=== PATIENT | male | born 1930 | race Caucasian/White ===

== ENCOUNTER 2016-10-28 15:08 | Inpatient (IN) | payer OTHER ==
[~2016-10-28] VITALS: Ht 177.8 cm; Wt 100.8 kg
[~2016-10-28 15:08] MED LIST: ACET-1256 PO; ADVIN25/60 INH; ALBUAER2 INH; ALLO100T PO; ASCO500T16 PO; ATRINSX NEB; CHOL2000 PO; ESCI10TA17 PO; LCTX PO; LSX40 PO; METO50TA16 PO; OMEP40CA41 PO; OXGN; POTA20TA13 PO; RANI300T PO; SPRIN INH; TAMS0.4C38 PO; VNCS125 IV
[2016-10-28] MEDS ORDERED: ALUMINUM/MAGNESIUM SUSP 30 ML UDC PO STA (15:16)
[2016-10-28] MEDS ORDERED: ONDANSETRON INJ 2 MG/ML 2 ML VIAL IV STA (15:16)
[2016-10-28] MEDS ORDERED: SODIUM CHLORIDE 0.9% 1000ML 1,000 ML IV STA (15:16)
--- NOTE | 2016-10-28 15:19 | EMERGENCY ROOM VISIT NOTE ---
History Report prepared by Racquelibe: Lara Matthews Under the Supervision of: Dr. Harry Price D.O. First contact with patient: 15:10 Stated Complaint: UPPER ABD PAIN/DIAPHORETIC History of Present Illness The patient is a 86 year old male who presents to the Emergency Room with complaints of persistent abdominal pain that started prior to arrival. He was brought to the ED via EMS. EMS reports the patient was very diaphoretic upon their arrival. The patient rates his pain as an 8/10 in severity and complains that the pain is located in the middle of his abdomen. He denies any lower abdominal pain. He admits to a history of peptic ulcer disease but denies any previous cardiac history. He states "I have never experienced anything like it before". The patient was given 4 Aspirin and 4 mg of Morphine in the field, which provided some relief. He denies any recent shortness of breath. He admits to some recent headaches, but states he does not have one here in the ED. He denies any recent medication changes or leg pain or swelling. He denies any recent melena or hematochezia. He denies any recent ETOH use. The patient admits he has undergone an appendectomy, but believes he still has his gallbladder. 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 A total of 10 systems reviewed and were otherwise negative. 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 (7) Gout (8) HLD (hyperlipidemia) (9) HTN (hypertension) (10) Pulmonary emboli Surgical Problems: (1) H/O colonoscopy (2) H/O hernia repair (3) H/O total knee replacement (4) S/P appendectomy (5) S/P IVC filter (6) S/P tonsillectomy Family History Noncontributory due to advanced age Social History Smoking Status: Never Smoker Alcohol Use: occasionally Drug Use: none Marital Status: Housing Status: lives alone Occupation Status: retired Current/Historical Medications Scheduled Allopurinol (Zyloprim), 200 MG PO DAILY Ascorbic Acid (Ascorbic Acid), 500 MG PO DAILY Aspirin (Aspir-81), 1 TAB PO DAILY Cholecalciferol (Vitamin D3), 4,000 UNITS PO DAILY Fluticasone Furoate-Vilanterol (Breo Ellipta), 1 PUFF INH DAILY Furosemide (Furosemide), 40 MG PO DAILY Lactobacillus Acidophilus (Lactinex), 1 TAB PO TID Levofloxacin (Levaquin), 500 MG PO DAILY Metoprolol Tartrate (Lopressor) (Lopressor), 75 MG PO BID Omeprazole (Prilosec), 40 MG PO DAILY Oxygen (Oxygen), 5 LITER NA HS Pantoprazole (Protonix), 40 MG PO DAILY Potassium Chloride Microencaps (Potassium Chloride Er), 20 MEQ PO BID Ranitidine Hcl (Zantac), 300 MG PO HS Senna (Senokot), 1 TAB PO QAM Tamsulosin Hcl (Flomax), 1 CAP PO DAILY Tiotropium Enterprise (Spiriva Handihaler), 18 MCG INH DAILY Scheduled PRN Albuterol Sulfate (Proair Respiclick), 2 PUFFS INH PRN PRN for Shortness of Breath Ipratropium Enterprise (Atrovent 0.02% Soln), 1 VIAL NEB Q4 PRN for SOB/Wheezing Allergies Coded Allergies: Penicillins (Verified Allergy, Severe, ANAPHYLAXIS, 10/28/16) Codeine (Verified Allergy, Unknown, UNKNOWN, 10/28/16) Propoxyphene (Verified Allergy, Unknown, SHORTNESS OF BREATH, 10/28/16) Physical Exam Vital Signs Date Time Temp Pulse Resp B/P Pulse Ox O2 Delivery O2 Flow Rate FiO2 10/28/16 19:09 86 10/28/16 18:29 80 18 124/90 94 Room Air 10/28/16 17:28 86 18 133/83 97 Room Air 10/28/16 16:57 98 20 133/85 96 Room Air 10/28/16 16:09 85 22 115/78 98 Room Air 10/28/16 15:43 36.8 87 24 106/71 95 Room Air 10/28/16 15:22 94 Physical Exam GENERAL: Patient is awake, alert, somewhat anxious appearing but overall comfortable. EYES: The conjunctivae are clear. The pupils are round and reactive. EARS, NOSE, MOUTH AND THROAT: The nose is without any evidence of any deformity. Mucous membranes are moist tongue is midline NECK: The neck is nontender and supple. RESPIRATORY: Normal respiratory effort is noted there is no evidence of wheezing rhonchi or rales CARDIOVASCULAR: Regular rate and rhythm noted there no murmurs rubs or gallops normal S1 normal S2 GASTROINTESTINAL: The abdomen is soft. Bowel sounds are present in all quadrants. Significant epigastric tenderness to palpation, RUQ tenderness to palpation, no guarding or rigidity noted. MUSCULOSKELETAL/EXTREMITIES: There is no evidence of gross deformity full range of motion is noted in the hips and shoulders SKIN: Pedal edema bilaterally. There is no obvious evidence of any rash. There are no petechiae, pallor or cyanosis noted. NEUROLOGIC: Patient is awake alert and oriented x3 Medical Decision & Procedures ER Provider Diagnostic Interpretation: This X-Ray was reviewed and interpreted by myself and the radiologist. CHEST ONE VIEW PORTABLE IMPRESSION: No acute findings. No change in appearance of the chest. Electronically signed by: Roland Albarran M.D. 10/28/2016 3:[address] scans were reviewed and interpreted by the radiologist and reviewed by myself. HEAD CT NONCONTRAST Impression: No acute intracranial abnormality. Atrophy and microvascular ischemic changes. This remains unchanged. Electronically signed by: Mathew Cordova M.D. 10/28/2016 4:[address] SCAN OF THE ABDOMEN AND PELVIS WITHOUT IV CONTRAST IMPRESSION: 1. Significantly suboptimal examination without oral and IV contrast. Th examination is also degraded by motion artifact. 2. No acute infectious or inflammatory findings are seen in the abdomen or pelvis. 3. The gallbladder is distended but otherwise normal in appearance. Correlation with clinical findings and serum bilirubin levels will be required. 4. Moderate colonic diverticulosis without CT evidence of acute diverticulitis. 5. Cardiomegaly. 6. Prostatomegaly. 7. Additional changes as above. Electronically signed by: Kunal Olguin M.D. 10/28/2016 5:02 PM This Ultrasound was reviewed and interpreted by the radiologist and reviewed by myself. ABDOMINAL ULTRASOUND, RIGHT UPPER QUADRANT IMPRESSION: 1. Distended gallbladder, unchanged. There are few small gallstones. No gallbladder wall thickening. 2. Normal caliber common bile duct given the patient's age. 3. Hepatic steatosis. Electronically signed by: Mathew Cordova M.D. 10/28/2016 6:00 PM Laboratory Results 10/28/16 14:40 Red Blood Count 3.80, Mean Corpuscular Volume 88.7, Mean Corpuscular Hemoglobin 30.3, Mean Corpuscular Hemoglobin Concent 34.1, Mean Platelet Volume 10.3, Neutrophils (%) (Auto) 70.6, Lymphocytes (%) (Auto) 16.8, Monocytes (%) (Auto) 7.2, Eosinophils (%) (Auto) 5.0, Basophils (%) (Auto) 0.2, Neutrophils # (Auto) 4.11, Lymphocytes # (Auto) 0.98, Monocytes # (Auto) 0.42, Eosinophils # (Auto) 0.29, Basophils # (Auto) 0.01 10/28/16 14:40 Test 10/28/16 14:40 White Blood Count 5.82 K/uL (4.8-10.8) Red Blood Count 3.80 M/uL (4.7-6.1) Hemoglobin 11.5 g/dL (14.0-18.0) Hematocrit 33.7 % (42-52) Mean Corpuscular Volume 88.7 fL (80-100) Mean Corpuscular Hemoglobin 30.3 pg (25-34) Mean Corpuscular Hemoglobin Concent 34.1 g/dl (32-36) Platelet Count 176 K/uL (130-400) Mean Platelet Volume 10.3 fL (7.4-10.4) Neutrophils (%) (Auto) 70.6 % Lymphocytes (%) (Auto) 16.8 % Monocytes (%) (Auto) 7.2 % Eosinophils (%) (Auto) 5.0 % Basophils (%) (Auto) 0.2 % Neutrophils # (Auto) 4.11 K/uL (1.4-6.5) Lymphocytes # (Auto) 0.98 K/uL (1.2-3.4) Monocytes # (Auto) 0.42 K/uL (0.11-0.59) Eosinophils # (Auto) 0.29 K/uL (0-0.5) Basophils # (Auto) 0.01 K/uL (0-0.2) RDW Standard Deviation 56.5 fL (36.4-46.3) RDW Coefficient of Variation 17.4 % (11.5-14.5) Immature Granulocyte % (Auto) 0.2 % Immature Granulocyte # (Auto) 0.01 K/uL (0.00-0.02) Prothrombin Time 10.2 SECONDS (9.0-12.0) Prothromb Time International Ratio 1.0 (0.9-1.1) Activated Partial Thromboplast Time 24.6 SECONDS (21.0-31.0) Partial Thromboplastin Ratio 0.9 Anion Gap 10.0 mmol/L (3-11) Estimated GFR () 36.2 Estimated GFR (Non- 31.2 BUN/Creatinine Ratio 17.4 (10-20) Calcium Level 8.8 mg/dl (8.5-10.1) Total Bilirubin 0.4 mg/dl (0.2-1) Direct Bilirubin 0.1 mg/dl (0-0.2) Aspartate Amino Transf (AST/SGOT) 24 U/L (15-37) Alanine Aminotransferase (ALT/SGPT) 21 U/L (12-78) Alkaline Phosphatase 102 U/L (45-117) Total Creatine Kinase 36 U/L (39-308) Total Protein 6.9 gm/dl (6.4-8.2) Albumin 3.0 gm/dl (3.4-5.0) Lipase 116 U/L (73-393) Laboratory results per my review. Medications Administered Medications (Trade) Dose Ordered Sig/Bladimir Route Start Time Stop Time Status Last Admin Dose Admin Ondansetron HCl (Zofran Inj) 4 mg NOW STAT IV 10/28/16 15:16 10/28/16 15:18 DC 10/28/16 16:06 4 MG Al Hydroxide/Mg Hydroxide 30 ml 30 ml NOW STAT PO 10/28/16 15:16 10/28/16 15:18 DC 10/28/16 16:06 30 ML Sodium Chloride 1,000 ml @ 200 mls/hr Q5H STAT IV 10/28/16 15:16 17 20:15 DC 10/28/16 16:06 200 MLS/HR Sodium Chloride (Nss 1000ml) 1,000 ml @ 75 mls/hr [id number] IV 3/16/17 20:16 10/29/16 09:35 10/28/16 22:09 75 MLS/HR ECG Indication: abdominal pain Rate (beats per minute): 86 Rhythm: sinus rhythm Findings: PVC, RBBB (RBBB suggested), other (Ectopic atrial rhythm noted) Change: no significant change (No significant change from June 11, 2016) Change: 2nd EKG performed on 10/28/2016: Normal sinus rhythm, rate 81, RBBB, PAC's noted , no significant change from earlier tracing. ED Course 151: The patient was evaluated in room A12. A complete history and physical examination were performed. 151: NSS 1000 ml @ 200 mls/hr IV, Maalox Susp 30 ml PO, Zofran 4 mg IV. 1724: I reevaluated the patient. He is resting comfortably. His daughter is at the bedside and I discussed his results so far with her. 1911: I discussed the patients case with Inés Martinez PA-C, [facility] Hospitalist. The patient will be further evaluated. Medical Decision Prior records/ancillary studies reviewed. Triage Nursing notes reviewed. The patient's history was concerning for abdominal pain. Differential diagnosis: Etiologies such as appendicitis, diverticulitis, PUD, biliary pathology, UTI, pancreatitis, obstruction, mesenteric ischemia, aortic pathology, infections, inflammatory bowel disease, renal colic, as well as others were entertained. The patient is an 86-year-old male who presented to the emergency department for an evaluation of abdominal pain. The patient had an episode of abdominal pain which was epigastric in nature. It was associated with diaphoresis. It was unclear if the patient was having a cardiac event so the ambulance was called. The patient arrived in the emergency department after receiving aspirin and a fluid bolus for hypotension. I received a medical command call about this patient. The patient had reproducible epigastric tenderness. He also had right upper quadrant tenderness to palpation. He was treated with IV fluids and IV antiemetics. He was treated with pain medication prior to arrival. I discussed the patient's laboratory and radiographic studies with him and his daughter. At this time I'm very concerned about the patient's presentation. He appears to have recently been discharged from a intermediate after a long period of time. It is possible that the patient does not have a good social support system. I discussed his case with the on-call [facility] hospitalist group. They've agreed to evaluate the patient in the emergency apartment for further management and disposition. Consults Time Called: [id number] Consulting Physician: Inés Martinez PA-C, [facility] Hospitalist Returned Call: 1911 I discussed the patients case with Inés Martinez PA-C, [facility] Hospitalist. The patient will be further evaluated. Impression Primary Impression: Acute kidney injury Additional Impressions: Dehydration Hypotension Epigastric abdominal pain RUQ abdominal pain Scribe Attestation The scribe's documentation has been prepared under my direction and personally reviewed by me in its entirety. I confirm that the note above accurately reflects all work, treatment, procedures, and medical decision making performed by me. Departure Information Dispostion Being Evaluated By Hospitalist Referrals Claudy Jung D.O. (PCP) Problem Qualifiers Additional Impressions: Hypotension Hypotension type: unspecified hypotension type Qualified Codes: I95.9 - Hypotension, unspecified
[2016-10-28 15:24] LABS: HEMATOCRIT 33.7 % (42-52); MEAN CELL VOLUME 88.7 fL (80-100); MEAN CORPUSCULAR HEMOGLOBIN 30.3 pg (25-34); MEAN CORPUSCULAR HGB CONC 34.1 g/dl (32-36); MEAN PLATELET VOLUME 10.3 fL (7.4-10.4); PLATELET COUNT 176 K/uL (130-400); WHITE BLOOD COUNT 5.82 K/uL (4.8-10.8)
[2016-10-28] MEDS ORDERED: MoRPHine SULFATE 4 MG/ML 1 ML CARP\\VIAL IV PRN (15:30)
[2016-10-28 15:34] LABS: PARTIAL THROMBOPLASTIN RATIO 0.9; PROTHROMBIN TIME (PATIENT) 10.2 SECONDS (9.0-12.0)
--- NOTE | 2016-10-28 15:34 | DIAGNOSTIC IMAGING REPORT ---
CHEST ONE VIEW PORTABLE CLINICAL HISTORY: Abdominal pain. COMPARISON STUDY: Chest radiograph January 23, 2016. FINDINGS: Elevation of the left hemidiaphragm is unchanged. Left basilar opacity is suggestive of atelectasis. Mild cardiomegaly is unchanged. There is no evidence of pulmonary edema. There is no pneumothorax. No consolidation is identified. IMPRESSION: No acute findings. No change in appearance of the chest. Electronically signed by: Roland Albarran M.D. 10/28/2016 3:33 PM Dictated Date/Time: 10/28/2016 3:32 PM
[2016-10-28 15:38] LABS: ALT/SGPT 21 U/L (12-78); BLOOD UREA NITROGEN 33 mg/dl (7-18); BUN/CREATININE RATIO 17.4 (10-20); CALCIUM 8.8 mg/dl (8.5-10.1); CARBON DIOXIDE 26 mmol/L (21-32); CHLORIDE 105 mmol/L (98-107); GLUCOSE 156 mg/dl (70-99); POTASSIUM 4.3 mmol/L (3.5-5.1); SODIUM 141 mmol/L (136-145)
[2016-10-28 15:43] LABS: ALKALINE PHOSPHATASE 102 U/L (45-117); AST/SGOT 24 U/L (15-37); CKMB/CK RATIO 4.4 (0-3.0)
[2016-10-28 15:58] LABS: BASO % 0.2 %; BASO ABS # 0.01 K/uL (0-0.2); COMPLETE YES; IG% 0.2 %; LYMPH % 16.8 %; LYMPH ABS # 0.98 K/uL (1.2-3.4); MONO % 7.2 %; NEUT % 70.6 %
--- NOTE | 2016-10-28 16:58 | DIAGNOSTIC IMAGING REPORT ---
HEAD CT NONCONTRAST CT DOSE: 537.48 mGy.cm HISTORY: confusion TECHNIQUE: Multiaxial CT images of the head were performed without the use of intravenous contrast. Automated exposure control was utilized for this study. Comparison: Head CT 10/05/2012. Findings: The paranasal sinuses and mastoid air cells are clear. The calvarium and skull base are intact. There is no mass, hematoma, midline shift, acute infarct. White matter hypodensity is nonspecific but suggestive of microvascular ischemic change. The ventricles and sulci demonstrate mild age-related involutional changes. Impression: No acute intracranial abnormality. Atrophy and microvascular ischemic changes. This remains unchanged. Electronically signed by: Mathew Cordova M.D. 10/28/2016 4:57 PM Dictated Date/Time: 10/28/2016 4:55 PM
--- NOTE | 2016-10-28 17:03 | DIAGNOSTIC IMAGING REPORT ---
CT SCAN OF THE ABDOMEN AND PELVIS WITHOUT IV CONTRAST CLINICAL HISTORY: Upper abdominal pain. COMPARISON STUDY: Abdominal CT dated to. TECHNIQUE: CT scan of the abdomen and pelvis is performed from the lung bases to the proximal femora. Images are reviewed in the axial, sagittal, and coronal planes. IV contrast was not administered for this examination as per the referring clinician. Note that the examination was performed in significantly suboptimal fashion without oral and IV contrast. The examination is also degraded by motion artifact. Automated dose control exposure was utilized. CT DOSE: 907.88 mGy.cm FINDINGS: Lung bases: The heart is enlarged and without pericardial effusion. There is elevation of left hemidiaphragm with chronic scarring at the left lung base. No airspace consolidation is seen typical for pneumonia and there is no pleural effusion. A tiny hiatal hernia is identified. Liver: The unenhanced liver is normal in size, contour, and attenuation. There is no intrahepatic biliary ductal dilatation. Gallbladder: The gallbladder is distended but otherwise grossly unremarkable. Spleen: Normal in size and attenuation. Pancreas: The unenhanced pancreas is moderately atrophic and grossly unremarkable. Adrenal glands: Unremarkable. Kidneys: The unenhanced kidneys demonstrate cortical atrophy and are without hydronephrosis. There are no renal calculi identified. There is no evidence of contour deforming renal mass lesion. Abdominal vasculature: There is moderate atherosclerotic calcification and mild ectasia of the abdominal aorta. An infrarenal IVC filter is in place. Bowel: The small bowel and colon are normal in course and caliber. There is moderate colonic diverticulosis without CT evidence of acute diverticulitis. Moderate fecal retention is observed. The appendix is not visualized and reported surgically absent. Peritoneum: There is no intraperitoneal free air or abdominal ascites. Lymphadenopathy: None. Pelvic viscera: The prostate gland is enlarged and heterogeneous, measuring 6.2 cm in transverse diameter. The bladder is normal as imaged. Skeletal structures: The skeletal structures are osteopenic. There is moderate lumbosacral spondylosis. No lytic or blastic lesions are seen. There are healed bilateral rib fractures. IMPRESSION: 1. Significantly suboptimal examination without oral and IV contrast. Th examination is also degraded by motion artifact. 2. No acute infectious or inflammatory findings are seen in the abdomen or pelvis. 3. The gallbladder is distended but otherwise normal in appearance. Correlation with clinical findings and serum bilirubin levels will be required. 4. Moderate colonic diverticulosis without CT evidence of acute diverticulitis. 5. Cardiomegaly. 6. Prostatomegaly. 7. Additional changes as above. Electronically signed by: Kunal Olguin M.D. 10/28/2016 5:02 PM Dictated Date/Time: 10/28/2016 4:56 PM
--- NOTE | 2016-10-28 18:01 | DIAGNOSTIC IMAGING REPORT ---
ABDOMINAL ULTRASOUND, RIGHT UPPER QUADRANT HISTORY: Upper abdominal pain.. COMPARISON: Abdomen and pelvis CT 10/28/2016. FINDINGS: Pancreas: The pancreatic head and tail are obscured by overlying bowel gas. The remaining portions of the pancreas are within normal limits. Liver: The liver is echogenic consistent with fatty change. Gallbladder: The gallbladder remains distended. No gallbladder wall thickening. There are few small stones within the gallbladder. CBD: 8 mm in diameter. This is considered normal given the patient's age. Right kidney: No hydronephrosis. IMPRESSION: 1. Distended gallbladder, unchanged. There are few small gallstones. No gallbladder wall thickening. 2. Normal caliber common bile duct given the patient's age. 3. Hepatic steatosis. Electronically signed by: Mathew Cordova M.D. 10/28/2016 6:00 PM Dictated Date/Time: 10/28/2016 5:59 PM
[2016-10-28] MEDS ORDERED: SENN-61 PO (19:05)
[2016-10-28] MEDS ORDERED: FLUT1INH INH (19:05)
[2016-10-28] MEDS ORDERED: METO50TA7 PO (19:05)
[2016-10-28] MEDS ORDERED: RIFA300C34 PO (19:05)
[2016-10-28] MEDS ORDERED: PANT40TA PO (19:05)
[2016-10-28] MEDS ORDERED: ASPI-232 PO (19:05)
[2016-10-28] MEDS ORDERED: ALBU18002 INH (19:08)
[2016-10-28] MEDS ORDERED: SODIUM CHLORIDE 0.9% 1000ML 1,000 ML IV SCH (20:16)
[2016-10-28] MEDS ORDERED: LEVO-459 PO (20:25)
[2016-10-28] MEDS ORDERED: NON-FORMULARY MEDICATION (Albuterol Sulfate (Proair Respiclick) 2 PUFFS) INH PRN (20:30)
[2016-10-28] MEDS ORDERED: IPRATROPIUM BROMIDE NEB SOLN 0.02% 2.5 ML VIAL INH PRN (20:30)
[2016-10-28] MEDS ORDERED: ACETAMINOPHEN 325 MG TAB PO PRN (20:30)
[2016-10-28] MEDS ORDERED: MoRPHine SULFATE 2 MG/ML CARP IV PRN (20:30)
[2016-10-28] MEDS ORDERED: NITROGLYCERIN 0.4 MG SL PER TAB CHARGE SL PRN (20:30)
[2016-10-28] MEDS ORDERED: ONDANSETRON INJ 2 MG/ML 2 ML VIAL IV PRN (20:30)
[2016-10-28] MEDS ORDERED: ALBUTEROL HFA INHALER 8.5 GM INH PRN (20:45)
[2016-10-28] MEDS ORDERED: OXYGEN SCH (21:00)
--- NOTE | 2016-10-28 21:03 | History and Physical ---
History & Physical Date & Time of Service: Oct 28, 2016 at 20:29 Chief Complaint: Upper Abd Pain/Diaphoretic Primary Care Physician: Claudy Jung D.O. History of Present Illness Source: patient This is an 86 y/o male with PMHx of CKD stage 3, moderate COPD, h/o PE s/p IVC filter, HTN, Dyslipidemia and other problems as outlined below who presents to the ED c/o abdominal pain that began prior to arrival. Pt reports that he was feeling well until 1330 when he developed acute onset abdominal pain that he describes as 8/10 azael-umbilical "squeezing" pain that did not radiate anywhere. Sxs were assoc with "ashen appearance" per daughter and diaphoresis. Last normal BM was this morning. Pt has never had similar sxs in the past. Pt has had a complicated past couple months. Briefly, pt was admitted to [facility] in May 2016 for a large R thigh hematoma and bacteremia. He was discharged to rehab facility with PICC line in place for 6 weeks of IV Vanco therapy. Pt ended up being admitted to [facility] at the end of August for a septic L knee. He was treated with IV linezolid (last dose 09/27/16) and discharged to a rehab facility. Patient just returned home 4 days ago. He currently lives at home alone with frequent PT and nursing care. Per daughter, pt had been doing really well since he has been home and they were pleased with his progress. Pt currently denies fever/chills, chest pain, SOB, loss of appetite, N/V, bowel or bladder issues, LE edema ,calf pain, lightheadedness/dizziness. In the ED, vitals are stable. Pt is afebrile with no leukocytosis. creat 1.9. Trop negative and EKG no acute ischemic change. CT abd/pelvis + distended gallbladder. Gallbladder US + gallbladder distention but no wall thickening and CBD in normal. Pt received IVF and morphine in the ED. He currently denies any abdominal pain. Pt will be admitted for further evaluation and treatment. Past Medical/Surgical History Medical Problems: (1) Anxiety Status: Chronic (2) BPH (benign prostatic hyperplasia) Status: Chronic (3) COPD (chronic obstructive pulmonary disease) Status: Chronic (4) Current use of correction anticoagulation Status: Chronic (5) Gout Status: Chronic (6) HLD (hyperlipidemia) Status: Chronic (7) HTN (hypertension) Status: Chronic (8) Pulmonary emboli Permanent Comment: After flying to [place], s/p IVC filter Status: Chronic Surgical Problems: (1) H/O colonoscopy Permanent Comment: Multiple diverticulum Status: Chronic (2) H/O hernia repair Status: Chronic (3) H/O total knee replacement Status: Chronic (4) S/P appendectomy Status: Chronic (5) S/P IVC filter Status: Chronic (6) S/P tonsillectomy Status: Chronic Family History Noncontributory due to advanced age Social History Smoking Status: Never Smoker Alcohol Use: none Drug Use: none Marital Status: Housing status: lives alone Occupational Status: retired Immunizations History of Influenza Vaccine: Yes History of Tetanus Vaccine?: Unknown History of Pneumococcal: Yes History of Hepatitis B Vaccine: Unknown Multi-Drug Resistant Organisms History of MDRO: Yes Type of MDRO: MRSA Allergies Coded Allergies: Penicillins (Verified Allergy, Severe, ANAPHYLAXIS, 10/28/16) Codeine (Verified Allergy, Unknown, UNKNOWN, 10/28/16) Propoxyphene (Verified Allergy, Unknown, SHORTNESS OF BREATH, 10/28/16) Home Medications Scheduled Allopurinol (Zyloprim), 200 MG PO DAILY Ascorbic Acid (Ascorbic Acid), 500 MG PO DAILY Aspirin (Aspir-81), 1 TAB PO DAILY Cholecalciferol (Vitamin D3), 4,000 UNITS PO DAILY Fluticasone Furoate-Vilanterol (Breo Ellipta), 1 PUFF INH DAILY Furosemide (Furosemide), 40 MG PO DAILY Lactobacillus Acidophilus (Lactinex), 1 TAB PO TID Levofloxacin (Levaquin), 500 MG PO DAILY Metoprolol Tartrate (Lopressor) (Lopressor), 75 MG PO BID Omeprazole (Prilosec), 40 MG PO DAILY Oxygen (Oxygen), 5 LITER NA HS Pantoprazole (Protonix), 40 MG PO DAILY Potassium Chloride Microencaps (Potassium Chloride Er), 20 MEQ PO BID Ranitidine Hcl (Zantac), 300 MG PO HS Senna (Senokot), 1 TAB PO QAM Tamsulosin Hcl (Flomax), 1 CAP PO DAILY Tiotropium [place] (Spiriva Handihaler), 18 MCG INH DAILY Scheduled PRN Albuterol Sulfate (Proair Respiclick), 2 PUFFS INH PRN PRN for Shortness of Breath Ipratropium [place] (Atrovent 0.02% Soln), 1 VIAL NEB Q4 PRN for SOB/Wheezing Review of Systems Constitutional: + sweats, No chills, No fatigue, No fever, No weakness Eyes: No worsening of vision ENT: No hearing loss Respiratory: No cough, No shortness of breath Cardiovascular: + edema (chronic), No chest pain, No claudication Abdomen: + pain, No GI bleeding, No constipation, No diarrhea, No nausea, No vomiting Musculoskeletal: No calf pain, No swelling Genitourinary - Male: No dysuria Neurologic: No weakness Psychiatric: No depression symptoms Endocrine: No fatigue Hematologic / Lymphatic: No abnormal bleeding/bruising Integumentary: No new/changing skin lesions Physical Exam Vital Signs Date Time Temp Pulse Resp B/P Pulse Ox O2 Delivery O2 Flow Rate FiO2 10/28/16 19:09 86 10/28/16 18:29 80 18 124/90 94 Room Air 10/28/16 17:28 86 18 133/83 97 Room Air 10/28/16 16:57 98 20 133/85 96 Room Air 10/28/16 16:09 85 22 115/78 98 Room Air 10/28/16 15:43 36.8 87 24 106/71 95 Room Air 10/28/16 15:22 94 General Appearance: WD/WN, no apparent distress, + obese, + pertinent finding ( Pt is laying in bed with daughter at bedside ) Head: normocephalic, atraumatic Eyes: normal inspection ENT: hearing grossly normal Neck: supple Respiratory/Chest: chest non-tender, lungs clear, normal breath sounds, no respiratory distress Cardiovascular: regular rate, rhythm, no murmur Abdomen/GI: normal bowel sounds, soft, + tenderness (azael-uumbilical tenderness with deep palpation ) Back: normal inspection Extremities/Musculoskelatal: normal inspection, no calf tenderness, + swelling (1+ pitting edema bilat; wearing judit hose) Neurologic/Psych: alert, normal mood/affect, oriented x 3 Skin: normal color, warm/dry Diagnostics Laboratory Results Results Past 24 Hours Test 10/28/16 14:40 Range/Units White Blood Count 5.82 4.8-10.8 K/uL Red Blood Count 3.80 4.7-6.1 M/uL Hemoglobin 11.5 14.0-18.0 g/dL Hematocrit 33.7 42-52 % Mean Corpuscular Volume 88.7 80-100 fL Mean Corpuscular Hemoglobin 30.3 25-34 pg Mean Corpuscular Hemoglobin Concent 34.1 32-36 g/dl Platelet Count 176 130-400 K/uL Mean Platelet Volume 10.3 7.4-10.4 fL Neutrophils (%) (Auto) 70.6 % Lymphocytes (%) (Auto) 16.8 % Monocytes (%) (Auto) 7.2 % Eosinophils (%) (Auto) 5.0 % Basophils (%) (Auto) 0.2 % Neutrophils # (Auto) 4.11 1.4-6.5 K/uL Lymphocytes # (Auto) 0.98 1.2-3.4 K/uL Monocytes # (Auto) 0.42 0.11-0.59 K/uL Eosinophils # (Auto) 0.29 0-0.5 K/uL Basophils # (Auto) 0.01 0-0.2 K/uL RDW Standard Deviation 56.5 36.4-46.3 fL RDW Coefficient of Variation 17.4 11.5-14.5 % Immature Granulocyte % (Auto) 0.2 % Immature Granulocyte # (Auto) 0.01 0.00-0.02 K/uL Prothrombin Time 10.2 9.0-12.0 SECONDS Prothromb Time International Ratio 1.0 0.9-1.1 Activated Partial Thromboplast Time 24.6 21.0-31.0 SECONDS Partial Thromboplastin Ratio 0.9 Sodium Level 141 136-145 mmol/L Potassium Level 4.3 3.5-5.1 mmol/L Chloride Level 105 98-107 mmol/L Carbon Dioxide Level 26 21-32 mmol/L Anion Gap 10.0 3-11 mmol/L Blood Urea Nitrogen 33 7-18 mg/dl Creatinine 1.90 0.60-1.40 mg/dl Estimated GFR () 36.2 Estimated GFR (Non- 31.2 BUN/Creatinine Ratio 17.4 10-20 Random Glucose 156 70-99 mg/dl Calcium Level 8.8 8.5-10.1 mg/dl Total Bilirubin 0.4 0.2-1 mg/dl Direct Bilirubin 0.1 0-0.2 mg/dl Aspartate Amino Transf (AST/SGOT) 24 15-37 U/L Alanine Aminotransferase (ALT/SGPT) 21 12-78 U/L Alkaline Phosphatase 102 45-117 U/L Total Creatine Kinase 36 39-308 U/L Creatine Kinase MB 1.6 0.5-3.6 ng/ml Creatine Kinase MB Ratio 4.4 0-3.0 Troponin I < 0.015 0-0.045 ng/ml Total Protein 6.9 6.4-8.2 gm/dl Albumin 3.0 3.4-5.0 gm/dl Lipase 116 73-393 U/L Diagnostic Radiology GALLBLADDER US IMPRESSION: 1. Distended gallbladder, unchanged. There are few small gallstones. No gallbladder wall thickening. 2. Normal caliber common bile duct given the patient's age. 3. Hepatic steatosis. CT ABD/PELVIS IMPRESSION: 1. Significantly suboptimal examination without oral and IV contrast. Th examination is also degraded by motion artifact. 2. No acute infectious or inflammatory findings are seen in the abdomen or pelvis. 3. The gallbladder is distended but otherwise normal in appearance. Correlation with clinical findings and serum bilirubin levels will be required. 4. Moderate colonic diverticulosis without CT evidence of acute diverticulitis. 5. Cardiomegaly. 6. Prostatomegaly. 7. Additional changes as above. HEAD CT IMPRESSION: No acute intracranial abnormality. Atrophy and microvascular ischemic changes. This remains unchanged. CXR IMPRESSION: No acute findings. No change in appearance of the chest. EKG EKG: sinus rhythm at 86 bpm with occ PVCs and RBBB; no change when compared to EKG from 06/11/16 Impression Assessment and Plan ABDOMINAL PAIN; UNCLEAR ETIOLOGY -pt presented with acute onset severe abd pain assoc with diaphoresis -admit to telemetry -pt is afebrile with no leukocytosis -CT abd/pelvis + gallbladder distention but otherwise normal -Gallbladder US + gallbladder distention. No wall thickening. Normal CBD. -Trop is negative and EKG shows no acute ischemic change from previous; will trend enzymes to r/o cardiac etiology -cont gentle IVF and pain medicine PRN -pt currently denies abdominal pain -monitor LIAM (baseline CKD III) -creatinine is 1.9 (baseline 1.3-1.5) -hold furosemide -start gentle IVF -monitor renal function and avoid nephrotoxic agents when able RECENT HISTORY OF SEPTIC L KNEE -admitted to [facility] 09/14-09/19 with septic L knee. Tx with IV linezolid -currently completing 6 month course of Levaquin per [place] [facility] -PT/OT HISTORY OF PE -s/p IVC filter -Coumadin was discontinued in June after he developed a large R thigh hematoma -cont ASA NOCTURNAL HYPOXEMIA -cont supplemental oxygen HS per home setting MODERATE COPD -not in acute exacerbation -cont home inhalers HYPERTENSION -BP is stable -cont metoprolol -holding furosemide due to LIAM -monitor GERD -cont PPI BPH -cont Flomax DYSLIPIDEMIA -diet-controlled DVT PROPHYLAXIS -subq heparin CODE STATUS -FULL CODE per my discussion with the patient upon admission DISPO -Discharge eval and PT/OT consult placed. -Patient seen in collaboration with Dr. Pablo. Please see her addendum. -Of note: patient will be followed by Dr. Hirsch starting tomorrow AM. I have seen, examined and discussed this patient with Insé Martinez and I agree with the above note. Patient presented with acute onset supra-umbilical/epigastric abdominal pain. No associated n/v/d. Notes 2 BM's today that were formed and denies any rectal bleeding. Vitals stable. PE: General- awake; alert; NAD Eyes- EOMI; no scleral icterus Neck- no stridor; trachea midline Lungs- CTA bilaterally; no wheezes/crackles Heart- RRR; no m/r/g Abdomen- soft; NTND; nBS; no guarding Back- no abnormalities Extremities- no c/c/e; no deformity Neuro- no focal deficits Skin- no appreciable skin breakdown or rash Labs, imaging and EKG reviewed. Abdominal pain: Unclear etiology. Has resolved. CT a/p and RUQ u/s with gallbladder distention but otherwise normal. LFT's normal. Vitals stable. Lipase normal. Advance diet as tolerated. Although atypical, will complete ACS r /o. LIAM: Hold furosemide and gentle hydration overnight with IVF's. Agree with remainder of plan as outlined above. VTE Prophylaxis VTE Risk Assessment Done? Y/N: Yes Risk Level: Moderate
[2016-10-28 21:34] LABS: URINE APPEARANCE CLEAR (CLEAR); URINE BILIRUBIN NEG (NEG); URINE COLOR DK YELLOW; URINE NITRITE NEG (NEG); URINE SPECIFIC GRAVITY 1.012 (1.000-1.030); UROBILINOGEN NEG (NEG)
[2016-10-28 21:37] LABS: MANUAL MICROSCOPIC REQUIRED? NO; REVIEW REQ? NO
[2016-10-28 21:47] VITALS: BP 151/87; PULSE 102; TEMP 36.3; O2SAT 97; Ht 177.8 cm; Wt 100.8 kg
[2016-10-28] MEDS: RANITIDINE HCL 150 MG TAB PO SCH (22:03)
[2016-10-28] MEDS: METOPROLOL TARTRATE 25 MG TAB PO SCH (22:03)
[2016-10-28] MEDS: LACTOBACILLUS ACIDOPHILUS (FLORANEX) TAB PO SCH (22:04)
[2016-10-28] MEDS: POTASSIUM CHLORIDE 20 MEQ TABCR PO SCH (22:05)
[2016-10-28] MEDS: HEPARIN SOD 5000 UNIT/0.5 ML CARP SQ SCH (22:08)
[2016-10-28 23:10] VITALS: BP 110/69; PULSE 86; TEMP 36.7; O2SAT 97
[2016-10-29] VITALS (9 sets, daily range): BP systolic 112–164; BP diastolic 63–93; PULSE 76–106; TEMP 36–36.9; O2SAT 94–98
[2016-10-29 03:03] LABS: HEMATOCRIT 30.6 % (42-52); MEAN CELL VOLUME 86.4 fL (80-100); MEAN CORPUSCULAR HEMOGLOBIN 29.4 pg (25-34); MEAN PLATELET VOLUME 9.3 fL (7.4-10.4); PLATELET COUNT 180 K/uL (130-400); RED BLOOD COUNT 3.54 M/uL (4.7-6.1); WHITE BLOOD COUNT 5.59 K/uL (4.8-10.8)
[2016-10-29 03:24] LABS: ALT/SGPT 30 U/L (12-78); AST/SGOT 26 U/L (15-37); BLOOD UREA NITROGEN 32 mg/dl (7-18); BUN/CREATININE RATIO 18.9 (10-20); CARBON DIOXIDE 28 mmol/L (21-32); CHLORIDE 110 mmol/L (98-107); GLUCOSE 70 mg/dl (70-99); POTASSIUM 4.2 mmol/L (3.5-5.1); SODIUM 144 mmol/L (136-145)
[2016-10-29 03:29] LABS: ALB/GLOB RATIO 0.8 (0.9-2); ALKALINE PHOSPHATASE 86 U/L (45-117)
[2016-10-29] MEDS: HEPARIN SOD 5000 UNIT/0.5 ML CARP SQ SCH ×3 (05:18→22:02)
[2016-10-29] MEDS: TIOTROPIUM BROMIDE 5 PUFF/90 MCG INH INH SCH (08:19)
[2016-10-29] MEDS: POTASSIUM CHLORIDE 20 MEQ TABCR PO SCH ×2 (08:19→21:58)
[2016-10-29] MEDS: CHOLECALCIFEROL 1000 INTER.UNIT TAB PO SCH (08:20)
[2016-10-29] MEDS: PANTOprazole SOD 40 MG TAB PO SCH (08:20)
[2016-10-29] MEDS: ASCORBIC ACID 500 MG TAB PO SCH (08:20)
[2016-10-29] MEDS: LACTOBACILLUS ACIDOPHILUS (FLORANEX) TAB PO SCH ×3 (08:20→21:57)
[2016-10-29] MEDS: SENNA 8.6 MG TAB PO SCH (08:21)
[2016-10-29] MEDS: TAMSULOSIN HCL 0.4 MG CAP PO SCH (08:21)
[2016-10-29] MEDS: ASPIRIN 81 MG ECTAB PO SCH (08:21)
[2016-10-29] MEDS: METOPROLOL TARTRATE 25 MG TAB PO SCH ×2 (08:22→21:59)
[2016-10-29] MEDS: ALLOPURINOL 100 MG TAB PO SCH (08:22)
[2016-10-29] MEDS ORDERED: NON-FORMULARY MEDICATION (Omeprazole (Prilosec) 40 MG) PO SCH (09:00)
[2016-10-29] MEDS: LEVOFLOXACIN 500 MG TAB PO SCH (11:51)
--- NOTE | 2016-10-29 11:51 | Progress Note ---
Subjective Date of Service: Oct 29, 2016. Subjective Pt evaluation today including: conversation w/ patient, physical exam, lab review, review of studies, review of inpatient medication list Saw/examined the patient in room 222 He states that he had epigastric/chest pain yesterday has not had recurrence of this pain since being admitted Denies any change in bowel habits; increased urinary frequency Denies shortness of breath Problem List Medical Problems: (1) Acute kidney injury Status: Acute (2) Anemia Status: Acute (3) Chronic kidney disease Status: Acute (4) COPD exacerbation Status: Acute (5) Hypomagnesemia Status: Acute (6) Hypoxia Status: Acute (7) Leg hematoma Status: Acute (8) Near syncope Status: Acute (9) Pneumonia Status: Acute (10) Shortness of breath Status: Acute (11) Subtherapeutic international normalized ratio (INR) Status: Acute (12) Supratherapeutic INR Status: Acute (13) Weakness Status: Acute Review of Systems Constitutional: No chills, No fever, No weakness Respiratory: No cough, No dyspnea at rest, No dyspnea on exertion, No hemoptysis, No shortness of breath, No sputum, No wheezing Cardiac: + chest pain, + see HPI Abdomen: + pain, + see HPI, No GI bleeding, No constipation, No diarrhea, No nausea, No vomiting Heme: No abnormal bleeding/bruising Medications Current Inpatient Medications Medications (Trade) Dose Ordered Sig/Bladimir Route Start Time Stop Time Status Last Admin Dose Admin Heparin Sodium (Porcine) (Heparin Sq 5000 Unit/0.5ml) 5,000 unit Q8 SQ 10/28/16 22:00 11/27/16 21:59 10/29/16 05:18 5,000 UNIT Acetaminophen (Tylenol Tab) 650 mg Q4H PRN PO 10/28/16 20:30 11/27/16 20:29 Ondansetron HCl (Zofran Inj) 4 mg Q6H PRN IV 10/28/16 20:30 11/27/16 20:29 Nitroglycerin (Nitrostat Tab) 0.4 mg UD PRN SL 10/28/16 20:30 11/27/16 20:29 Allopurinol (Zyloprim Tab) 200 mg DAILY PO 10/29/16 09:00 11/28/16 08:59 10/29/16 08:22 200 MG Ascorbic Acid (Vitamin C Tab) 500 mg DAILY PO 10/29/16 09:00 11/28/16 08:59 10/29/16 08:20 500 MG Aspirin (Ecotrin Tab) 81 mg DAILY PO 10/29/16 09:00 11/28/16 08:59 10/29/16 08:21 81 MG Ipratropium [place] (Atrovent 0.02% 0.5MG/2.5ML Neb) 2.5 mg Q4 PRN INH 10/28/16 20:30 11/27/16 20:29 Lactobacillus Acidophilus (Floranex Tab) 1 tab TID PO 10/28/16 21:00 11/27/16 20:59 10/29/16 08:20 1 TAB Levofloxacin (Levaquin Tab) 500 mg DAILY@1100 PO 10/29/16 11:00 12/10/16 10:59 Metoprolol Tartrate (Lopressor Tab) 75 mg BID PO 10/28/16 21:00 11/27/16 20:59 10/29/16 08:22 75 MG Pantoprazole Sodium (Protonix Tab) 40 mg DAILY PO 10/29/16 09:00 11/28/16 08:59 10/29/16 08:20 40 MG Potassium Chloride (Klor-Con Tab) 20 meq BID PO 10/28/16 21:00 11/27/16 20:59 10/29/16 08:19 20 MEQ Senna (Senokot Tab) 8.6 mg QAM PO 10/29/16 09:00 11/28/16 08:59 10/29/16 08:21 8.6 MG Tamsulosin HCl (Flomax Cap) 0.4 mg DAILY PO 10/29/16 09:00 11/28/16 08:59 10/29/16 08:21 0.4 MG Tiotropium [place] (Spiriva Handihaler Inhaler) 1 puff DAILY INH 10/29/16 09:00 11/28/16 08:59 10/29/16 08:19 1 PUFF Cholecalciferol (Vitamin D Tab) 4,000 inter.unit DAILY PO 10/29/16 09:00 11/28/16 08:59 10/29/16 08:20 4,000 INTER.UNIT Miscellaneous Information (Order Awaiting Action) 1 ea QS N/A 10/29/16 00:00 11/28/16 00:00 Ranitidine HCl (zANTac TAB) 300 mg HS PO 10/28/16 21:00 11/27/16 20:59 10/28/16 22:03 300 MG Morphine Sulfate (MoRPHine SULFATE INJ) 2 mg Q4H PRN IV 10/28/16 20:30 11/11/16 20:29 Albuterol (Proair Hfa) 2 puffs DAILY PRN INH 10/28/16 20:45 11/27/16 20:44 Objective Vital Signs Date Time Temp Pulse Resp B/P Pulse Ox O2 Delivery O2 Flow Rate FiO2 10/29/16 08:00 Room Air 10/29/16 07:56 36.9 83 18 129/83 96 10/29/16 04:00 Room Air 10/29/16 03:20 36.8 82 18 124/75 96 Room Air 10/28/16 23:59 Room Air 10/28/16 23:59 Room Air 10/28/16 23:10 36.7 86 18 110/69 97 Room Air 10/28/16 21:47 36.3 102 18 151/87 97 Room Air 10/28/16 21:23 92 18 138/91 95 10/28/16 19:09 86 10/28/16 18:29 80 18 124/90 94 Room Air 10/28/16 17:28 86 18 133/83 97 Room Air 10/28/16 16:57 98 20 133/85 96 Room Air 10/28/16 16:09 85 22 115/78 98 Room Air 10/28/16 15:43 36.8 87 24 106/71 95 Room Air 10/28/16 15:22 94 Physical Exam General Appearance: no apparent distress, + pertinent finding (This is an 86 year old male, sitting on the bed after eating breakfast; in good spirits) ENT: + pertinent finding (hard of hearing) Respiratory/Chest: lungs clear, normal breath sounds, no respiratory distress, no accessory muscle use Cardiovascular: regular rate, rhythm, no edema, no murmur Abdomen: normal bowel sounds, non tender, soft Extremities: non-tender, normal inspection, no pedal edema Neurologic/Psychiatric: no motor/sensory deficits, alert, normal mood/affect Laboratory Results Last 24 Hours Test 10/28/16 14:40 3/16/17 20:45 10/28/16 20:50 10/28/16 20:53 White Blood Count 5.82 K/uL Red Blood Count 3.80 M/uL Hemoglobin 11.5 g/dL Hematocrit 33.7 % Mean Corpuscular Volume 88.7 fL Mean Corpuscular Hemoglobin 30.3 pg Mean Corpuscular Hemoglobin Concent 34.1 g/dl Platelet Count 176 K/uL Mean Platelet Volume 10.3 fL Neutrophils (%) (Auto) 70.6 % Lymphocytes (%) (Auto) 16.8 % Monocytes (%) (Auto) 7.2 % Eosinophils (%) (Auto) 5.0 % Basophils (%) (Auto) 0.2 % Neutrophils # (Auto) 4.11 K/uL Lymphocytes # (Auto) 0.98 K/uL Monocytes # (Auto) 0.42 K/uL Eosinophils # (Auto) 0.29 K/uL Basophils # (Auto) 0.01 K/uL RDW Standard Deviation 56.5 fL RDW Coefficient of Variation 17.4 % Immature Granulocyte % (Auto) 0.2 % Immature Granulocyte # (Auto) 0.01 K/uL Prothrombin Time 10.2 SECONDS Prothromb Time International Ratio 1.0 Activated Partial Thromboplast Time 24.6 SECONDS Partial Thromboplastin Ratio 0.9 Sodium Level 141 mmol/L Potassium Level 4.3 mmol/L Chloride Level 105 mmol/L Carbon Dioxide Level 26 mmol/L Anion Gap 10.0 mmol/L Blood Urea Nitrogen 33 mg/dl Creatinine 1.90 mg/dl Estimated GFR () 36.2 Estimated GFR (Non- 31.2 BUN/Creatinine Ratio 17.4 Random Glucose 156 mg/dl Calcium Level 8.8 mg/dl Total Bilirubin 0.4 mg/dl Direct Bilirubin 0.1 mg/dl Aspartate Amino Transf (AST/SGOT) 24 U/L Alanine Aminotransferase (ALT/SGPT) 21 U/L Alkaline Phosphatase 102 U/L Total Creatine Kinase 36 U/L Creatine Kinase MB 1.6 ng/ml 1.4 ng/ml Creatine Kinase MB Ratio 4.4 Troponin I < 0.015 ng/ml < 0.015 ng/ml Total Protein 6.9 gm/dl Albumin 3.0 gm/dl Lipase 116 U/L Urine Color DK YELLOW Urine Appearance CLEAR Urine pH 5.0 Urine Specific [place] 1.012 Urine Protein NEG Urine Glucose (UA) NEG Urine Ketones NEG Urine Occult Blood 1+ Urine Nitrite NEG Urine Bilirubin NEG Urine Urobilinogen NEG Urine Leukocyte Esterase TRACE Urine WBC (Auto) 1-5 /hpf Urine RBC (Auto) 5-10 /hpf Urine Hyaline Casts (Auto) 1-5 /lpf Urine Epithelial Cells (Auto) 10-20 /lpf Urine Bacteria (Auto) NEG Test 10/29/16 02:35 10/29/16 02:45 White Blood Count 5.59 K/uL Red Blood Count 3.54 M/uL Hemoglobin 10.4 g/dL Hematocrit 30.6 % Mean Corpuscular Volume 86.4 fL Mean Corpuscular Hemoglobin 29.4 pg Mean Corpuscular Hemoglobin Concent 34.0 g/dl RDW Standard Deviation 55.3 fL RDW Coefficient of Variation 17.4 % Platelet Count 180 K/uL Mean Platelet Volume 9.3 fL Sodium Level 144 mmol/L Potassium Level 4.2 mmol/L Chloride Level 110 mmol/L Carbon Dioxide Level 28 mmol/L Anion Gap 6.0 mmol/L Blood Urea Nitrogen 32 mg/dl Creatinine 1.70 mg/dl Est Creatinine Clear Calc Drug Dose 37.1 ml/min Estimated GFR () 41.4 Estimated GFR (Non- 35.7 BUN/Creatinine Ratio 18.9 Random Glucose 70 mg/dl Calcium Level 8.0 mg/dl Total Bilirubin 0.2 mg/dl Aspartate Amino Transf (AST/SGOT) 26 U/L Alanine Aminotransferase (ALT/SGPT) 30 U/L Alkaline Phosphatase 86 U/L Creatine Kinase MB 1.5 ng/ml Troponin I < 0.015 ng/ml Total Protein 6.1 gm/dl Albumin 2.7 gm/dl Globulin 3.4 gm/dl Albumin/Globulin Ratio 0.8 Creatine Kinase MB Ratio Assessment and Plan This is an 86 year old male with PMH of COPD (predicted FEV1 % ~ 55), CKD stage 3 (creat baseline closer to mid 1's), Hx. of PE s/p IVC filter, HTN, HLD presents with epigastric/chest pain Chest Pain r/o ACS unsure if this is cardiac in nature, patient does not have a cardiac history cardiac enzymes negative x 3 EKG with no significant ST-T wave changes echo pending pain has since subsided lipase wnl CXR no acute findings Epigastric/Abdominal Pain the pain described above could be considered epigastric as well no change in bowel habits abdominal CT performed - no significant findings RUQ U/S - mildly distended gallbladder no elevation of LFTs advance diet to full liquids and advance as tolerated Acute Kidney Injury superimposed on CKD stage 3 creat on admission was 1.9 likely related to dehydration was given IVFs in the ER encouraged PO intake and will advance diet Moderate COPD no exacerbation continue Spiriva Recent Septic Left Knee was recently at [place] for this septic left knee is currently on Levaquin for a total of 6 months continue Levaquin and check blood cultures Hx. of PE s/p IVC filter no anticoagulation, currently on aspirin vitals are good, no tachycardia, no tachypnea, good oxygen saturation HTN max blood pressure in the past 24 hours: 143/63 continue current medications DVT ppx subq heparin FULL CODE
[2016-10-29] MEDS ORDERED: LORAZEPAM 2 MG/ML 1 ML VIAL IV PRN (19:00)
[2016-10-29] MEDS ORDERED: LORAZEPAM 2 MG/ML 1 ML VIAL IV ONE (19:30)
[2016-10-29] MEDS: RANITIDINE HCL 150 MG TAB PO SCH (21:57)
[2016-10-30] VITALS (9 sets, daily range): BP systolic 132–162; BP diastolic 79–96; PULSE 80–93; TEMP 36.5–37.7; O2SAT 95–98
[2016-10-30] MEDS: HEPARIN SOD 5000 UNIT/0.5 ML CARP SQ SCH ×3 (05:46→21:43)
[2016-10-30 06:12] LABS: HEMATOCRIT 32.2 % (42-52); MEAN CORPUSCULAR HEMOGLOBIN 29.2 pg (25-34); MEAN CORPUSCULAR HGB CONC 33.2 g/dl (32-36); MEAN PLATELET VOLUME 9.6 fL (7.4-10.4); PLATELET COUNT 182 K/uL (130-400); RED BLOOD COUNT 3.66 M/uL (4.7-6.1); WHITE BLOOD COUNT 4.68 K/uL (4.8-10.8)
[2016-10-30 06:47] LABS: BUN/CREATININE RATIO 17.3 (10-20); CALCIUM 8.5 mg/dl (8.5-10.1); CREATININE 1.6 mg/dl (0.60-1.40)
[2016-10-30] MEDS: ASPIRIN 81 MG ECTAB PO SCH (07:54)
[2016-10-30] MEDS: LACTOBACILLUS ACIDOPHILUS (FLORANEX) TAB PO SCH ×3 (07:54→21:58)
[2016-10-30] MEDS: ALLOPURINOL 100 MG TAB PO SCH (07:54)
[2016-10-30] MEDS: TAMSULOSIN HCL 0.4 MG CAP PO SCH (07:55)
[2016-10-30] MEDS: PANTOprazole SOD 40 MG TAB PO SCH (07:55)
[2016-10-30] MEDS: ASCORBIC ACID 500 MG TAB PO SCH (07:55)
[2016-10-30] MEDS: METOPROLOL TARTRATE 25 MG TAB PO SCH ×2 (07:56→21:59)
[2016-10-30] MEDS: CHOLECALCIFEROL 1000 INTER.UNIT TAB PO SCH (07:56)
[2016-10-30] MEDS: TIOTROPIUM BROMIDE 5 PUFF/90 MCG INH INH SCH (07:57)
[2016-10-30] MEDS: SENNA 8.6 MG TAB PO SCH (07:58)
--- NOTE | 2016-10-30 08:41 | ECHOCARDIOGRAM REPORT ---
*NOTICE TO RECEIVING REPUBLICAN AGENCY This information is strictly Confidential and protected under [place] law. [place] law prohibits you from making any further disclosure of this information unless further disclosure is expressly permitted by the written consent of the person to whom it pertains or is authorized by law. A general authorization for the release of medical or other information is not sufficient for this purpose. Hospital accepts no responsibility if the information is made available to any other person, INCLUDING THE PATIENT. Interpretation Summary * Name: LURDES ROSARIO Study Date: 10/29/2016 03:33 PM BP: 164/93 mmHg * Patient Location: C.2T\S\E222\S\1 HR: 79 * : 1930 (M/d/yyy) Gender: Male Height: 70 in * Age: 86 yrs Ethnicity: [place] Weight: 220 lb * Ordering Physician: Rojas Hirsch * Referring Physician: Self, Referred * Performed By: Beverly Garcia, [facility] * * Reason For Study: CHEST PAIN * BSA: 2.2 m2 * -- Conclusions -- * The left ventricle is normal in size. * Left ventricular systolic function is normal. * Ejection Fraction = 60-65%. * The left ventricular wall motion is normal. * The right ventricular systolic function is normal. * The left atrial size is normal. * Right atrial size is normal. * No significant valvular pathology. Procedure Details * A complete two-dimensional transthoracic echocardiogram was performed (2D, M-mode, Doppler and color flow Doppler). Left Ventricle * The left ventricle is normal in size. * There is normal left ventricular wall thickness. * Ejection Fraction = 60-65%. * Left ventricular systolic function is normal. * The left ventricular wall motion is normal. Right Ventricle * The right ventricle is normal in size and function. * There is normal right ventricular wall thickness. * The right ventricular systolic function is normal. Atria * The left atrial size is normal. * Right atrial size is normal. * The interatrial septum is intact with no evidence for an atrial septal defect. Mitral Valve * There is mild mitral annular calcification. * The mitral valve leaflets appear thickened, but open well. * There is no mitral valve stenosis. * There is no mitral regurgitation noted. Tricuspid Valve * The tricuspid valve is normal in structure and function. * There is trace tricuspid regurgitation. Aortic Valve * The aortic valve is normal in structure and function. * No aortic regurgitation is present. Pulmonic Valve * The pulmonic valve is normal in structure and function. * There is no pulmonic valvular regurgitation. Great Vessels * The aortic root is normal size. * No obvious dissection could be visualized. * The pulmonary artery is normal size. Pericardium/Pleural * There is no pericardial effusion. MMode 2D Measurements and Calculations IVSd 1.7 cm IVSs 2.6 cm LVIDd 4.4 cm LVIDs 2.8 cm LVPWd 1.5 cm LVPWs 1.8 cm IVS/LVPW 1.1 FS 37.4 % EDV(Teich) 87.4 ml ESV(Teich) 28.3 ml EF(Teich) 67.6 % EDV(cubed) 84.9 ml ESV(cubed) 20.8 ml EF(cubed) 75.5 % % IVS thick 56.2 % % LVPW thick 26.1 % LV mass(C)d 282.6 grams LV mass(C)dI 130.0 grams/m\S\2 LV mass(C)s 291.6 grams LV mass(C)sI 134.2 grams/m\S\2 SV(Teich) 59.1 ml SI(Teich) 27.2 ml/m\S\2 SV(cubed) 64.0 ml SI(cubed) 29.5 ml/m\S\2 Ao root diam 4.2 cm Ao root area 13.7 cm\S\2 ACS 2.3 cm LA dimension 4.9 cm LA/Ao 1.2 LVOT diam 2.0 cm LVOT area 3.1 cm\S\2 Doppler Measurements and Calculations MV E max guille 70.1 cm/sec MV A max guille 112.7 cm/sec MV E/A 0.62 MV P1/2t max guille 85.9 cm/sec MV P1/2t 77.0 msec MVA(P1/2t) 2.9 cm\S\2 MV dec slope 326.9 cm/sec\S\2 MV dec time 0.26 sec Ao V2 max 115.6 cm/sec Ao max PG 5.4 mmHg Ao max PG (full) 3.0 mmHg PASQUALE(V,A) 2.1 cm\S\2 PASQUALE(V,D) 2.1 cm\S\2 LV V1 max PG 2.4 mmHg LV V1 max 77.7 cm/sec
[2016-10-30] MEDS: POTASSIUM CHLORIDE 20 MEQ TABCR PO SCH ×2 (10:20→21:41)
[2016-10-30] MEDS: LEVOFLOXACIN 500 MG TAB PO SCH (10:20)
[2016-10-30] MEDS ORDERED: POLYETHYLENE (MIRALAX) 17 GM PACK PO PRN (12:45)
--- NOTE | 2016-10-30 14:58 | Progress Note ---
Subjective Date of Service: Oct 30, 2016. Subjective Pt evaluation today including: conversation w/ patient, physical exam, lab review, review of studies, review of inpatient medication list Saw/examined the patient in room 217 He's doing well c/o hard stools, constipation Refusing facility; wants to get home Problem List Medical Problems: (1) Acute kidney injury Status: Acute (2) Anemia Status: Acute (3) Chronic kidney disease Status: Acute (4) COPD exacerbation Status: Acute (5) Hypomagnesemia Status: Acute (6) Hypoxia Status: Acute (7) Leg hematoma Status: Acute (8) Near syncope Status: Acute (9) Pneumonia Status: Acute (10) Shortness of breath Status: Acute (11) Subtherapeutic international normalized ratio (INR) Status: Acute (12) Supratherapeutic INR Status: Acute (13) Weakness Status: Acute Review of Systems Constitutional: No chills, No fever Cardiac: No chest pain (resolved), No edema, No palpitations Abdomen: + constipation, No GI bleeding, No diarrhea, No nausea, No pain (no epigastric tenderness), No vomiting Heme: No abnormal bleeding/bruising Medications Current Inpatient Medications Medications (Trade) Dose Ordered Sig/Bladimir Route Start Time Stop Time Status Last Admin Dose Admin Heparin Sodium (Porcine) (Heparin Sq 5000 Unit/0.5ml) 5,000 unit Q8 SQ 10/28/16 22:00 11/27/16 21:59 10/30/16 13:39 5,000 UNIT Acetaminophen (Tylenol Tab) 650 mg Q4H PRN PO 10/28/16 20:30 11/27/16 20:29 Ondansetron HCl (Zofran Inj) 4 mg Q6H PRN IV 10/28/16 20:30 11/27/16 20:29 Nitroglycerin (Nitrostat Tab) 0.4 mg UD PRN SL 10/28/16 20:30 11/27/16 20:29 Allopurinol (Zyloprim Tab) 200 mg DAILY PO 10/29/16 09:00 11/28/16 08:59 10/30/16 07:54 200 MG Ascorbic Acid (Vitamin C Tab) 500 mg DAILY PO 10/29/16 09:00 11/28/16 08:59 10/30/16 07:55 500 MG Aspirin (Ecotrin Tab) 81 mg DAILY PO 10/29/16 09:00 11/28/16 08:59 10/30/16 07:54 81 MG Ipratropium [place] (Atrovent 0.02% 0.5MG/2.5ML Neb) 2.5 mg Q4 PRN INH 10/28/16 20:30 11/27/16 20:29 Lactobacillus Acidophilus (Floranex Tab) 1 tab TID PO 10/28/16 21:00 11/27/16 20:59 10/30/16 13:37 1 TAB Levofloxacin (Levaquin Tab) 500 mg DAILY@1100 PO 10/29/16 11:00 12/10/16 10:59 10/30/16 10:20 500 MG Metoprolol Tartrate (Lopressor Tab) 75 mg BID PO 10/28/16 21:00 11/27/16 20:59 10/30/16 07:56 75 MG Pantoprazole Sodium (Protonix Tab) 40 mg DAILY PO 10/29/16 09:00 11/28/16 08:59 10/30/16 07:55 40 MG Potassium Chloride (Klor-Con Tab) 20 meq BID PO 10/28/16 21:00 11/27/16 20:59 10/30/16 10:20 20 MEQ Senna (Senokot Tab) 8.6 mg QAM PO 10/29/16 09:00 11/28/16 08:59 10/30/16 07:58 8.6 MG Tamsulosin HCl (Flomax Cap) 0.4 mg DAILY PO 10/29/16 09:00 11/28/16 08:59 10/30/16 07:55 0.4 MG Tiotropium [place] (Spiriva Handihaler Inhaler) 1 puff DAILY INH 10/29/16 09:00 11/28/16 08:59 10/30/16 07:57 1 PUFF Cholecalciferol (Vitamin D Tab) 4,000 inter.unit DAILY PO 10/29/16 09:00 11/28/16 08:59 10/30/16 07:56 4,000 INTER.UNIT Miscellaneous Information (Order Awaiting Action) 1 ea QS N/A 10/29/16 00:00 11/28/16 00:00 Ranitidine HCl (zANTac TAB) 300 mg HS PO 10/28/16 21:00 11/27/16 20:59 10/29/16 21:57 300 MG Morphine Sulfate (MoRPHine SULFATE INJ) 2 mg Q4H PRN IV 10/28/16 20:30 11/11/16 20:29 Albuterol (Proair Hfa) 2 puffs DAILY PRN INH 10/28/16 20:45 11/27/16 20:44 Lorazepam (Ativan Inj) 1 mg Q4H PRN IV 10/29/16 19:00 11/28/16 18:59 Polyethylene (Miralax Powder Packet) 17 gm DAILY PRN PO 10/30/16 12:45 11/29/16 12:44 10/30/16 13:28 17 GM Docusate Sodium (coLACE CAP) 100 mg BID PO 10/30/16 21:00 11/29/16 20:59 UNV Docusate Sodium (coLACE CAP) 100 mg NOW ONCE PO 10/30/16 15:00 10/30/16 15:01 UNV Bisacodyl (Dulcolax Tab) 5 mg DAILY PRN PO 10/30/16 15:00 11/29/16 14:59 UNV Bisacodyl (Dulcolax Tab) 5 mg NOW ONCE PO 10/30/16 15:00 10/30/16 15:01 UNV Senna (Senokot Tab) 8.6 mg ONE ONCE PO 10/30/16 15:00 10/30/16 15:01 UNV Objective Vital Signs Date Time Temp Pulse Resp B/P Pulse Ox O2 Delivery O2 Flow Rate FiO2 10/30/16 12:00 Room Air 10/30/16 11:17 37.3 80 18 152/96 95 Room Air 10/30/16 08:00 Room Air 10/30/16 08:00 37.1 87 18 136/84 95 10/30/16 04:00 96 Room Air 10/30/16 03:37 36.9 82 17 162/94 96 Room Air 10/29/16 23:59 98 Room Air 10/29/16 23:55 36.9 82 18 149/79 98 Room Air 10/29/16 20:00 96 Room Air 10/29/16 19:22 36.7 78 18 145/91 96 Room Air 10/29/16 15:30 Room Air 10/29/16 15:15 36.0 87 18 164/93 97 Room Air Physical Exam General Appearance: no apparent distress Respiratory/Chest: chest non-tender, lungs clear, normal breath sounds, no respiratory distress, no accessory muscle use Cardiovascular: regular rate, rhythm, no edema, no murmur Abdomen: normal bowel sounds, non tender, soft Extremities: normal inspection, no pedal edema Laboratory Results Last 24 Hours Test 10/30/16 05:15 10/30/16 05:45 White Blood Count 4.68 K/uL Red Blood Count 3.66 M/uL Hemoglobin 10.7 g/dL Hematocrit 32.2 % Mean Corpuscular Volume 88.0 fL Mean Corpuscular Hemoglobin 29.2 pg Mean Corpuscular Hemoglobin Concent 33.2 g/dl RDW Standard Deviation 55.4 fL RDW Coefficient of Variation 17.2 % Platelet Count 182 K/uL Mean Platelet Volume 9.6 fL Sodium Level 143 mmol/L Potassium Level 4.0 mmol/L Chloride Level 109 mmol/L Carbon Dioxide Level 28 mmol/L Anion Gap 6.0 mmol/L Blood Urea Nitrogen 28 mg/dl Creatinine 1.60 mg/dl Est Creatinine Clear Calc Drug Dose 39.4 ml/min Estimated GFR () 44.6 Estimated GFR (Non- 38.4 BUN/Creatinine Ratio 17.3 Random Glucose 89 mg/dl Calcium Level 8.5 mg/dl Assessment and Plan This is an 86 year old male with PMH of COPD (predicted FEV1 % ~ 55), CKD stage 3 (creat baseline closer to mid 1's), Hx. of PE s/p IVC filter, HTN, HLD presents with epigastric/chest pain Chest Pain r/o ACS 10/30 cardiac enzymes negative x 3 echo with no significant findings No other issues to note transfer to med/surg 10/29 unsure if this is cardiac in nature, patient does not have a cardiac history cardiac enzymes negative x 3 EKG with no significant ST-T wave changes echo pending pain has since subsided lipase wnl CXR no acute findings Epigastric/Abdominal Pain the pain described above could be considered epigastric as well no change in bowel habits abdominal CT performed - no significant findings RUQ U/S - mildly distended gallbladder no elevation of LFTs advance diet to full liquids and advance as tolerated Acute Kidney Injury superimposed on CKD stage 3 10/30 creat down to 1.6 a lot closer to baseline 10/29 creat on admission was 1.9 likely related to dehydration was given IVFs in the ER encouraged PO intake and will advance diet Moderate COPD no exacerbation continue Spiriva Recent Septic Left Knee was recently at [place] for this septic left knee is currently on Levaquin for a total of 6 months continue Levaquin and check blood cultures Hx. of PE s/p IVC filter no anticoagulation, currently on aspirin vitals are good, no tachycardia, no tachypnea, good oxygen saturation HTN max blood pressure in the past 24 hours: 162/94 monitor, would like to increase blood pressure pills, due to weakness, will hold off for now DVT ppx subq heparin FULL CODE
[2016-10-30] MEDS ORDERED: BISACODYL 5 MG TABEC PO ONE (15:00)
[2016-10-30] MEDS ORDERED: DOCUSATE SODIUM 100 MG CAP PO ONE (15:00)
[2016-10-30] MEDS ORDERED: SENNA 8.6 MG TAB PO ONE (15:00)
[2016-10-30] MEDS ORDERED: BISACODYL 5 MG TABEC PO PRN (15:00)
[2016-10-30] MEDS: DOCUSATE SODIUM 100 MG CAP PO SCH (21:40)
[2016-10-30] MEDS: RANITIDINE HCL 150 MG TAB PO SCH (21:58)
[2016-10-31] MEDS: HEPARIN SOD 5000 UNIT/0.5 ML CARP SQ SCH (05:37)
[2016-10-31 05:41] LABS: HEMATOCRIT 32.6 % (42-52); MEAN CELL VOLUME 88.6 fL (80-100); MEAN CORPUSCULAR HEMOGLOBIN 30.2 pg (25-34); MEAN PLATELET VOLUME 9.6 fL (7.4-10.4); PLATELET COUNT 188 K/uL (130-400); RED BLOOD COUNT 3.68 M/uL (4.7-6.1); WHITE BLOOD COUNT 5.32 K/uL (4.8-10.8)
[2016-10-31 06:06] LABS: BUN/CREATININE RATIO 15.6 (10-20); CALCIUM 8.8 mg/dl (8.5-10.1); CREATININE 1.7 mg/dl (0.60-1.40); POTASSIUM 4.2 mmol/L (3.5-5.1)
[2016-10-31 07:07] VITALS: BP 114/78; PULSE 90; TEMP 36.6; O2SAT 96
[2016-10-31] MEDS: TIOTROPIUM BROMIDE 5 PUFF/90 MCG INH INH SCH (07:37)
[2016-10-31] MEDS: DOCUSATE SODIUM 100 MG CAP PO SCH (07:38)
[2016-10-31] MEDS: LACTOBACILLUS ACIDOPHILUS (FLORANEX) TAB PO SCH (07:39)
[2016-10-31] MEDS: POTASSIUM CHLORIDE 20 MEQ TABCR PO SCH (07:39)
[2016-10-31] MEDS: TAMSULOSIN HCL 0.4 MG CAP PO SCH (07:39)
[2016-10-31] MEDS: METOPROLOL TARTRATE 25 MG TAB PO SCH (07:40)
[2016-10-31] MEDS: PANTOprazole SOD 40 MG TAB PO SCH (07:40)
[2016-10-31] MEDS: ASCORBIC ACID 500 MG TAB PO SCH (07:41)
[2016-10-31] MEDS: SENNA 8.6 MG TAB PO SCH (07:41)
[2016-10-31] MEDS: ASPIRIN 81 MG ECTAB PO SCH (08:35)
[2016-10-31] MEDS: ALLOPURINOL 100 MG TAB PO SCH (08:35)
[2016-10-31] MEDS: CHOLECALCIFEROL 1000 INTER.UNIT TAB PO SCH (08:35)
[2016-10-31 11:40] VITALS: BP 133/85; PULSE 82; TEMP 36.5
[2016-10-31] MEDS: LEVOFLOXACIN 500 MG TAB PO SCH (11:43)
--- NOTE | 2016-10-31 13:01 | Progress Note ---
Subjective Date of Service: Oct 31, 2016. Subjective Pt evaluation today including: conversation w/ patient, physical exam, lab review, review of studies, review of inpatient medication list Saw/examined the patient in room 412 Doing well, no pain, no other issues to note good PO intake, eager to get home Problem List Medical Problems: (1) Acute kidney injury Status: Acute (2) Anemia Status: Acute (3) Chronic kidney disease Status: Acute (4) COPD exacerbation Status: Acute (5) Hypomagnesemia Status: Acute (6) Hypoxia Status: Acute (7) Leg hematoma Status: Acute (8) Near syncope Status: Acute (9) Pneumonia Status: Acute (10) Shortness of breath Status: Acute (11) Subtherapeutic international normalized ratio (INR) Status: Acute (12) Supratherapeutic INR Status: Acute (13) Weakness Status: Acute Review of Systems Constitutional: No chills, No fever Respiratory: No cough, No shortness of breath, No sputum Cardiac: No chest pain Abdomen: No diarrhea, No nausea, No pain, No vomiting Heme: No abnormal bleeding/bruising Medications Current Inpatient Medications Medications (Trade) Dose Ordered Sig/Bladimir Route Start Time Stop Time Status Last Admin Dose Admin Heparin Sodium (Porcine) (Heparin Sq 5000 Unit/0.5ml) 5,000 unit Q8 SQ 10/28/16 22:00 11/27/16 21:59 10/31/16 05:37 5,000 UNIT Acetaminophen (Tylenol Tab) 650 mg Q4H PRN PO 10/28/16 20:30 11/27/16 20:29 10/31/16 10:46 650 MG Ondansetron HCl (Zofran Inj) 4 mg Q6H PRN IV 10/28/16 20:30 11/27/16 20:29 Nitroglycerin (Nitrostat Tab) 0.4 mg UD PRN SL 10/28/16 20:30 11/27/16 20:29 Allopurinol (Zyloprim Tab) 200 mg DAILY PO 10/29/16 09:00 11/28/16 08:59 10/31/16 08:35 200 MG Ascorbic Acid (Vitamin C Tab) 500 mg DAILY PO 10/29/16 09:00 11/28/16 08:59 10/31/16 07:41 500 MG Aspirin (Ecotrin Tab) 81 mg DAILY PO 10/29/16 09:00 11/28/16 08:59 10/31/16 08:35 81 MG Ipratropium [place] (Atrovent 0.02% 0.5MG/2.5ML Neb) 2.5 mg Q4 PRN INH 10/28/16 20:30 11/27/16 20:29 Lactobacillus Acidophilus (Floranex Tab) 1 tab TID PO 10/28/16 21:00 11/27/16 20:59 10/31/16 07:39 1 TAB Levofloxacin (Levaquin Tab) 500 mg DAILY@1100 PO 10/29/16 11:00 12/10/16 10:59 10/31/16 11:43 500 MG Metoprolol Tartrate (Lopressor Tab) 75 mg BID PO 10/28/16 21:00 11/27/16 20:59 10/31/16 07:40 75 MG Pantoprazole Sodium (Protonix Tab) 40 mg DAILY PO 10/29/16 09:00 11/28/16 08:59 10/31/16 07:40 40 MG Potassium Chloride (Klor-Con Tab) 20 meq BID PO 10/28/16 21:00 11/27/16 20:59 10/31/16 07:39 20 MEQ Senna (Senokot Tab) 8.6 mg QAM PO 10/29/16 09:00 11/28/16 08:59 10/31/16 07:41 8.6 MG Tamsulosin HCl (Flomax Cap) 0.4 mg DAILY PO 10/29/16 09:00 11/28/16 08:59 10/31/16 07:39 0.4 MG Tiotropium [place] (Spiriva Handihaler Inhaler) 1 puff DAILY INH 10/29/16 09:00 11/28/16 08:59 10/31/16 07:37 1 PUFF Cholecalciferol (Vitamin D Tab) 4,000 inter.unit DAILY PO 10/29/16 09:00 11/28/16 08:59 10/31/16 08:35 4,000 INTER.UNIT Miscellaneous Information (Order Awaiting Action) 1 ea QS N/A 10/29/16 00:00 11/28/16 00:00 Ranitidine HCl (zANTac TAB) 300 mg HS PO 10/28/16 21:00 11/27/16 20:59 10/30/16 21:58 300 MG Morphine Sulfate (MoRPHine SULFATE INJ) 2 mg Q4H PRN IV 10/28/16 20:30 11/11/16 20:29 Albuterol (Proair Hfa) 2 puffs DAILY PRN INH 10/28/16 20:45 11/27/16 20:44 Lorazepam (Ativan Inj) 1 mg Q4H PRN IV 10/29/16 19:00 11/28/16 18:59 Polyethylene (Miralax Powder Packet) 17 gm DAILY PRN PO 10/30/16 12:45 11/29/16 12:44 10/30/16 13:28 17 GM Docusate Sodium (coLACE CAP) 100 mg BID PO 10/30/16 20:00 11/29/16 20:59 10/31/16 07:38 100 MG Bisacodyl (Dulcolax Tab) 5 mg DAILY PRN PO 10/30/16 15:00 11/29/16 14:59 Objective Vital Signs Date Time Temp Pulse Resp B/P Pulse Ox O2 Delivery O2 Flow Rate FiO2 10/31/16 11:40 36.5 82 133/85 10/31/16 08:00 Room Air 10/31/16 07:07 36.6 90 20 114/78 96 Room Air 10/31/16 00:01 Room Air 10/30/16 23:22 36.5 91 20 149/94 96 Room Air 10/30/16 18:52 37.7 80 18 156/79 97 Nasal Cannula 4.0 10/30/16 18:05 36.6 93 18 142/90 98 Room Air 10/30/16 17:59 36.8 90 19 98 10/30/16 16:00 Room Air 10/30/16 15:30 36.8 90 19 132/80 98 Room Air Physical Exam General Appearance: no apparent distress ENT: + pertinent finding (hard of hearing, uses hearing aids) Respiratory/Chest: chest non-tender, lungs clear, normal breath sounds, no respiratory distress, no accessory muscle use Cardiovascular: regular rate, rhythm, no edema, no murmur Abdomen: normal bowel sounds, non tender, soft Extremities: + swelling (left knee, not warm or erythematous), + pertinent finding Neurologic/Psychiatric: no motor/sensory deficits, alert, normal mood/affect Laboratory Results Last 24 Hours Test 10/31/16 05:19 White Blood Count 5.32 K/uL Red Blood Count 3.68 M/uL Hemoglobin 11.1 g/dL Hematocrit 32.6 % Mean Corpuscular Volume 88.6 fL Mean Corpuscular Hemoglobin 30.2 pg Mean Corpuscular Hemoglobin Concent 34.0 g/dl RDW Standard Deviation 55.9 fL RDW Coefficient of Variation 17.2 % Platelet Count 188 K/uL Mean Platelet Volume 9.6 fL Sodium Level 142 mmol/L Potassium Level 4.2 mmol/L Chloride Level 106 mmol/L Carbon Dioxide Level 29 mmol/L Anion Gap 7.0 mmol/L Blood Urea Nitrogen 27 mg/dl Creatinine 1.70 mg/dl Est Creatinine Clear Calc Drug Dose 37.1 ml/min Estimated GFR () 41.4 Estimated GFR (Non- 35.7 BUN/Creatinine Ratio 15.6 Random Glucose 95 mg/dl Calcium Level 8.8 mg/dl Assessment and Plan This is an 86 year old male with PMH of COPD (predicted FEV1 % ~ 55), CKD stage 3 (creat baseline closer to mid 1's), Hx. of PE s/p IVC filter, HTN, HLD presents with epigastric/chest pain Chest Pain r/o ACS 10/31 this is ruled out clinically stable 10/30 cardiac enzymes negative x 3 echo with no significant findings No other issues to note transfer to med/surg 10/29 unsure if this is cardiac in nature, patient does not have a cardiac history cardiac enzymes negative x 3 EKG with no significant ST-T wave changes echo pending pain has since subsided lipase wnl CXR no acute findings Epigastric/Abdominal Pain 10/31 pain resolved 10/30 the pain described above could be considered epigastric as well no change in bowel habits abdominal CT performed - no significant findings RUQ U/S - mildly distended gallbladder no elevation of LFTs advance diet to full liquids and advance as tolerated Acute Kidney Injury superimposed on CKD stage 3 10/31 creat up to 1.7 continue to encourage PO intake 10/30 creat down to 1.6 a lot closer to baseline 10/29 creat on admission was 1.9 likely related to dehydration was given IVFs in the ER encouraged PO intake and will advance diet Moderate COPD no exacerbation continue Spiriva Recent Septic Left Knee was recently at [place] for this septic left knee is currently on Levaquin for a total of 6 months continue Levaquin and check blood cultures Hx. of PE s/p IVC filter no anticoagulation, currently on aspirin vitals are good, no tachycardia, no tachypnea, good oxygen saturation HTN max blood pressure in the past 24 hours: 162/94 monitor, would like to increase blood pressure pills, due to weakness, will hold off for now DVT ppx subq heparin FULL CODE
--- NOTE | 2016-10-31 13:03 | Discharge Instructions ---
Discharge Instructions Date of Service Oct 31, 2016. Admission Reason for Admission: Abdominal Pain, Devin Discharge Discharge Diagnosis / Problem: Abdominal Pain, acute kidney injury Discharge Goals Goal(s): Decrease discomfort, Improve function, Diagnostic testing Activity Recommendations Activity Limitations: resume your previous activity . Instructions / Follow-Up Instructions / Follow-Up Please follow-up with Dr. Jung on November 05 @ 8:50AM Continue taking Levaquin x 6 months for left septic knee you will be sent home with home health Current Hospital Diet Patient's current hospital diet: AHA Diet (Heart Healthy) Discharge Diet Recommended Diet: AHA Diet (Heart Healthy) Pending Studies Studies pending at discharge: no Medical Emergencies . Who to Call and When: Medical Emergencies: If at any time you feel your situation is an emergency, please call 911 immediately. . Non-Emergent Contact Non-Emergency issues call your: Primary Care Provider . . "Provider Documentation" section prepared by Rojas Hirsch. VTE Core Measure Inpt VTE Proph given/why not?: Unfractionated heparin SQ
--- NOTE | 2016-10-31 13:05 | Discharge Summary ---
Discharge Summary Date of Service Oct 31, 2016. Discharge Summary Admission Date: Oct 28, 2016 at 20:20 Discharge Date: Oct 31, 2016 Discharge Disposition: Home with services Principal Diagnosis: Epigastric Pain, likely GERD Acute Kidney Injury on CKD stage 3 Medication Reconciliation Continued Medications: Albuterol Sulfate (Proair Respiclick) 108 Mcg/Act Aer 2 PUFFS INH PRN PRN for Shortness of Breath Allopurinol (Zyloprim) 100 Mg Tab 200 MG PO DAILY, TAB Ascorbic Acid (Ascorbic Acid) 500 Mg Tab 500 MG PO DAILY, TAB Aspirin (Aspir-81) 81 Mg Tab 1 TAB PO DAILY Cholecalciferol (Vitamin D3) 2,000 Unit Cap 4000 UNITS PO DAILY, CAP Fluticasone Furoate-Vilanterol (Breo Ellipta) 1 Inh Inh 1 PUFF INH DAILY Furosemide (Furosemide) 40 Mg Tab 40 MG PO DAILY, #30 Ipratropium Una (Atrovent 0.02% Soln) 2.5 Ml Nebu 1 VIAL NEB Q4 PRN for SOB/Wheezing Lactobacillus Acidophilus (Lactinex) Tab 1 TAB PO TID, #30 TAB Levofloxacin (Levaquin) 500 Mg Tab 500 MG PO DAILY Metoprolol Tartrate (Lopressor) (Lopressor) 50 Mg Tab 75 MG PO BID, TAB Omeprazole (Prilosec) 40 Mg Cap 40 MG PO DAILY, CAP Oxygen (Oxygen) Gas 5 LITER NA HS Pantoprazole (Protonix) 40 Mg Tab 40 MG PO DAILY, TAB Potassium Chloride Microencaps (Potassium Chloride Er) 20 Meq Tab 20 MEQ PO BID Ranitidine Hcl (Zantac) 300 Mg Tab 300 MG PO HS, TAB Senna (Senokot) 8.6 Mg Tab 1 TAB PO QAM, TAB Tamsulosin Hcl (Flomax) 0.4 Mg Cap 1 CAP PO DAILY for 30 Days, #30 CAP 5 Refills Tiotropium Una (Spiriva Handihaler) 5 Puff/90 Mcg Aerp 18 MCG INH DAILY Admission Information HPI (per Admitting provider): This is an 86 y/o male with PMHx of CKD stage 3, moderate COPD, h/o PE s/p IVC filter, HTN, Dyslipidemia and other problems as outlined below who presents to the ED c/o abdominal pain that began prior to arrival. Pt reports that he was feeling well until 1330 when he developed acute onset abdominal pain that he describes as 8/10 azael-umbilical "squeezing" pain that did not radiate anywhere. Sxs were assoc with "ashen appearance" per daughter and diaphoresis. Last normal BM was this morning. Pt has never had similar sxs in the past. Pt has had a complicated past couple months. Briefly, pt was admitted to [facility] in May 2016 for a large R thigh hematoma and bacteremia. He was discharged to rehab facility with PICC line in place for 6 weeks of IV Vanco therapy. Pt ended up being admitted to [facility] at the end of August for a septic L knee. He was treated with IV linezolid (last dose 09/27/16) and discharged to a rehab facility. Patient just returned home 4 days ago. He currently lives at home alone with frequent PT and nursing care. Per daughter, pt had been doing really well since he has been home and they were pleased with his progress. Pt currently denies fever/chills, chest pain, SOB, loss of appetite, N/V, bowel or bladder issues, LE edema ,calf pain, lightheadedness/dizziness. In the ED, vitals are stable. Pt is afebrile with no leukocytosis. creat 1.9. Trop negative and EKG no acute ischemic change. CT abd/pelvis + distended gallbladder. Gallbladder US + gallbladder distention but no wall thickening and CBD in normal. Pt received IVF and morphine in the ED. He currently denies any abdominal pain. Pt will be admitted for further evaluation and treatment. Physical Exam (per Admitting): General Appearance: WD/WN, no apparent distress, + obese, + pertinent finding (Pt is laying in bed with daughter at bedside ) Head: normocephalic, atraumatic Eyes: normal inspection ENT: hearing grossly normal Neck: supple Respiratory/Chest: chest non-tender, lungs clear, normal breath sounds, no respiratory distress Cardiovascular: regular rate, rhythm, no murmur Abdomen/GI: normal bowel sounds, soft, + tenderness (azael-uumbilical tenderness with deep palpation ) Back: normal inspection Extremities/Musculoskelatal: normal inspection, no calf tenderness, + swelling (1+ pitting edema bilat; wearing juidt hose) Neurologic/Psych: alert, normal mood/affect, oriented x 3 Skin: normal color, warm/dry Hospital Course This is an 86 year old male with PMH of COPD (predicted FEV1 % ~ 55), CKD stage 3 (creat baseline closer to mid 1's), Hx. of PE s/p IVC filter, HTN, HLD presents with epigastric/chest pain Chest Pain r/o ACS 10/31 this is ruled out clinically stable 10/30 cardiac enzymes negative x 3 echo with no significant findings No other issues to note transfer to med/surg 10/29 unsure if this is cardiac in nature, patient does not have a cardiac history cardiac enzymes negative x 3 EKG with no significant ST-T wave changes echo pending pain has since subsided lipase wnl CXR no acute findings Epigastric/Abdominal Pain 10/31 pain resolved 10/30 the pain described above could be considered epigastric as well no change in bowel habits abdominal CT performed - no significant findings RUQ U/S - mildly distended gallbladder no elevation of LFTs advance diet to full liquids and advance as tolerated Acute Kidney Injury superimposed on CKD stage 3 10/31 creat up to 1.7 continue to encourage PO intake 10/30 creat down to 1.6 a lot closer to baseline 10/29 creat on admission was 1.9 likely related to dehydration was given IVFs in the ER encouraged PO intake and will advance diet Moderate COPD no exacerbation continue Spiriva Recent Septic Left Knee was recently at [facility] for this septic left knee is currently on Levaquin for a total of 6 months continue Levaquin and check blood cultures Hx. of PE s/p IVC filter no anticoagulation, currently on aspirin vitals are good, no tachycardia, no tachypnea, good oxygen saturation HTN max blood pressure in the past 24 hours: 162/94 monitor, would like to increase blood pressure pills, due to weakness, will hold off for now DVT ppx subq heparin FULL CODE Total time spent on discharge = 38 minutes This includes examination of the patient, discharge planning, medication reconciliation, and communication with other providers. Discharge Instructions Please follow-up with Dr. Jung on November 05 @ 8:50AM Continue taking Levaquin x 6 months for left septic knee you will be sent home with home health
[2016-10-31 13:11] VITALS: BP 133/85; PULSE 82; TEMP 36.5; O2SAT 96
== END 2016-10-31 14:10 | disposition home health service (06) | DRG 392 ==
LOC: ENRESERVDT → ENRESERVTM → EDBD 15:08 → C.EDA 15:09 → UNDOADMIN 20:20 → C.2T 20:20 → C.4E 10-30 14:53
PROVIDERS: ADMIT Internal Medicine; ATTEND Family Medicine
DX: R10.13 Epigastric pain (principal); N17.9 Acute kidney failure, unspecified; R07.9 Chest pain, unspecified; K21.9 Gastro-esophageal reflux disease without esophagitis; E86.0 Dehydration; I95.9 Hypotension, unspecified; R09.02 Hypoxemia; N18.3 Chronic kidney disease, stage 3 (moderate); F44.9 Dissociative and conversion disorder, unspecified; I12.9 Hypertensive chronic kidney disease with stage 1 through stage 4 chronic kidney disease, or unspecified chronic kidney disease; N40.0 Benign prostatic hyperplasia without lower urinary tract symptoms; Z96.659 Presence of unspecified artificial knee joint; Z86.711 Personal history of pulmonary embolism; Z79.82 Long term (current) use of aspirin; Z79.51 Long term (current) use of inhaled steroids; Z79.899 Other long term (current) drug therapy; Z99.81 Dependence on supplemental oxygen

== ENCOUNTER 2017-09-10 12:47 | Emergency (ER) | payer OTHER ==
[~2017-09-10] VITALS: Ht 177.8 cm; Wt 113.0 kg
[~2017-09-10 12:47] MED LIST changes: -ACET-1256 PO; -ADVIN25/60 INH; +ALBU18002 INH; -ALBUAER2 INH; +ASPI-232 PO; -ESCI10TA17 PO; +FLUT1INH INH; -LCTX PO; +LEVO-459 PO; +PANT40TA PO; +SENN-61 PO; -VNCS125 IV
[2017-09-10 12:53] VITALS: TEMP 36.5; Ht 177.8 cm; Wt 113.0 kg
[2017-09-10 13:17] VITALS: O2SAT 91
[2017-09-10] MEDS ORDERED: POTA10CA28 PO (13:29)
[2017-09-10] MEDS ORDERED: LPR25 PO (13:29)
[2017-09-10] MEDS ORDERED: LCTX PO (13:29)
[2017-09-10 13:32] LABS: BASO % 0.3 %; BASO ABS # 0.02 K/uL (0-0.2); EOS % 4.9 %; EOS ABS # 0.31 K/uL (0-0.5); HEMATOCRIT 41.5 % (42-52); HEMOGLOBIN 14.2 g/dL (14.0-18.0); IG# 0.01 K/uL (0.00-0.02); LYMPH % 21.4 %; LYMPH ABS # 1.35 K/uL (1.2-3.4); MEAN CELL VOLUME 91.6 fL (80-100); MEAN CORPUSCULAR HEMOGLOBIN 31.3 pg (25-34); MEAN CORPUSCULAR HGB CONC 34.2 g/dl (32-36); MEAN PLATELET VOLUME 9.9 fL (7.4-10.4); MONO % 7.4 %; MONO ABS # 0.47 K/uL (0.11-0.59); NEUT % 65.8 %; NEUT ABS # 4.16 K/uL (1.4-6.5); PLATELET COUNT 151 K/uL (130-400); RED CELL DISTRIBUTION WIDTH CV 14.1 % (11.5-14.5); RED CELL DISTRIBUTION WIDTH SD 46.6 fL (36.4-46.3); WHITE BLOOD COUNT 6.32 K/uL (4.8-10.8)
[2017-09-10 13:44] LABS: PTT PATIENT 23.7 SECONDS (21.0-31.0)
[2017-09-10 14:04] LABS: ALBUMIN 3.2 gm/dl (3.4-5.0); ALT/SGPT 19 U/L (12-78); AST/SGOT 12 U/L (15-37); BLOOD UREA NITROGEN 29 mg/dl (7-18); CALCIUM 8.7 mg/dl (8.5-10.1); CARBON DIOXIDE 30 mmol/L (21-32); GLUCOSE 101 mg/dl (70-99); LIPASE 103 U/L (73-393); POTASSIUM 4.1 mmol/L (3.5-5.1); SODIUM 134 mmol/L (136-145)
[2017-09-10 14:07] LABS: ALKALINE PHOSPHATASE 88 U/L (45-117); TOTAL PROTEIN 7.2 gm/dl (6.4-8.2)
[2017-09-10 16:10] VITALS: BP 138/91; PULSE 80; O2SAT 94
--- NOTE | 2017-09-10 16:17 | EMERGENCY ROOM VISIT NOTE ---
History Report prepared by Geoffrey: Michael Fox Under the Supervision of: Dr. Geremias Adams M.D. First contact with patient: 13:06 Chief Complaint: GI ASSESSMENT Stated Complaint: RECTAL BLEEDING Nursing Triage Summary: triage note: Pt reports rectal bleeding since this am. History of Present Illness The patient is a 87 year old male who presents to the Emergency Room with complaints of rectal bleeding that began this morning. He has a past medical history of rectal bleeding associated with hemorrhoids. The patient lives in his own apartment with 24/7 care. Per the patient and his post acute care nurse practitioner, he has been intermittently constipated over the past week. This morning when the patient had a bowel movement, he noticed that whenever he wiped, there would be blood on the toilet paper. He does note that he wiped a significant amount of times. This continued as he wiped but eventually stopped. He is unsure if the stool itself had blood in it. Pt denies LOC, headache, fevers, chills, diaphoresis, visual changes, neck pain, chest pain, breathing difficulties, nausea, vomiting, abdominal pain, back pain, urinary symptoms, numbness, weakness, lymphadenopathy, rash, or other complaints. The patient was on a blood thinner in the past, but is not currently on them. Source of History: patient, caregiver Onset: this morning Position: other (Rectum) Symptom Intensity: mild Quality: other (Bleeding) Timing: resolved Note: He has been intermittently constipated for the past week, but was able to have a bowel movement today. Review of Systems See HPI for pertinent positives and negatives. A total of ten systems were reviewed and were otherwise negative. Past Medical & Surgical Medical Problems: (1) Abdominal pain (2) LIAM (acute kidney injury) (3) Anxiety (4) BPH (benign prostatic hyperplasia) (5) COPD (chronic obstructive pulmonary disease) (6) Current use of watermaster anticoagulation (7) Gout (8) HLD (hyperlipidemia) (9) HTN (hypertension) (10) Pulmonary emboli Surgical Problems: (1) H/O colonoscopy (2) H/O hernia repair (3) H/O total knee replacement (4) S/P appendectomy (5) S/P IVC filter (6) S/P tonsillectomy Family History Noncontributory due to advanced age Social History Smoking Status: Never Smoker Alcohol Use: occasionally Drug Use: none Marital Status: Housing Status: lives alone Occupation Status: retired Current/Historical Medications Scheduled Allopurinol (Zyloprim), 200 MG PO DAILY Aspirin (Aspir-81), 1 TAB PO DAILY Cholecalciferol (Vitamin D3), 4,000 UNITS PO DAILY Fluticasone Furoate-Vilanterol (Breo Ellipta), 1 PUFF INH DAILY Furosemide (Furosemide), 40 MG PO DAILY Lactobacillus Acidophilus (Lactinex), 1 TAB PO BID Metoprolol Tartrate (Lopressor), 50 MG PO BID Potassium Chloride (Micro-K Ext Rel), 10 MEQ PO BID Ranitidine Hcl (Zantac), 300 MG PO HS Tamsulosin Hcl (Flomax), 1 CAP PO DAILY Tiotropium [place] (Spiriva Handihaler), 18 MCG INH DAILY Allergies Coded Allergies: Penicillins (Verified Allergy, Severe, ANAPHYLAXIS, 09/10/17) Codeine (Verified Allergy, Unknown, UNKNOWN, 09/10/17) Latex1 -Allergic Contact Dermititis (Verified Allergy, Unknown, unk, ) Propoxyphene (Verified Allergy, Unknown, SHORTNESS OF BREATH, 09/10/17) Physical Exam Vital Signs Date Time Temp Pulse Resp B/P (MAP) Pulse Ox O2 Delivery O2 Flow Rate FiO2 09/10/17 14:25 85 18 119/78 94 Room Air 09/10/17 13:17 91 Room Air 09/10/17 12:53 36.5 80 20 124/76 91 Room Air Physical Exam GENERAL: Awake, alert, well-appearing, in no distress HENT: Normocephalic, atraumatic. Oropharynx unremarkable. EYES: Normal conjunctiva. Sclera non-icteric. NECK: Supple. No nuchal rigidity. FROM. No JVD. RESPIRATORY: Clear to auscultation. CARDIAC: Regular rate, normal rhythm. Extremities warm and well perfused. Pulses equal. ABDOMEN: Soft, non-distended. No tenderness to palpation. No rebound or guarding. No masses. RECTAL: Light brown stool, heme negative. Minimal hemorrhoidal disease. No other visualized abnormalities. MUSCULOSKELETAL: Chest examination reveals no tenderness. The back is symmetrical on inspection without obvious abnormality. There is no CVA tenderness to palpation. No joint edema. LOWER EXTREMITIES: Calves are equal size bilaterally and non-tender. Trace bilateral edema. No discoloration. NEURO: Normal sensorium. No sensory or motor deficits noted. SKIN: No rash or jaundice noted. Medical Decision & Procedures Laboratory Results 09/10/17 13:20 Red Blood Count 4.53, Mean Corpuscular Volume 91.6, Mean Corpuscular Hemoglobin 31.3, Mean Corpuscular Hemoglobin Concent 34.2, Mean Platelet Volume 9.9, Neutrophils (%) (Auto) 65.8, Lymphocytes (%) (Auto) 21.4, Monocytes (%) (Auto) 7.4, Eosinophils (%) (Auto) 4.9, Basophils (%) (Auto) 0.3, Neutrophils # (Auto) 4.16, Lymphocytes # (Auto) 1.35, Monocytes # (Auto) 0.47, Eosinophils # (Auto) 0.31, Basophils # (Auto) 0.02 09/10/17 13:20 Test 09/10/17 13:20 09/10/17 14:40 White Blood Count 6.32 K/uL (4.8-10.8) Red Blood Count 4.53 M/uL (4.7-6.1) Hemoglobin 14.2 g/dL (14.0-18.0) Hematocrit 41.5 % (42-52) Mean Corpuscular Volume 91.6 fL (80-100) Mean Corpuscular Hemoglobin 31.3 pg (25-34) Mean Corpuscular Hemoglobin Concent 34.2 g/dl (32-36) Platelet Count 151 K/uL (130-400) Mean Platelet Volume 9.9 fL (7.4-10.4) Neutrophils (%) (Auto) 65.8 % Lymphocytes (%) (Auto) 21.4 % Monocytes (%) (Auto) 7.4 % Eosinophils (%) (Auto) 4.9 % Basophils (%) (Auto) 0.3 % Neutrophils # (Auto) 4.16 K/uL (1.4-6.5) Lymphocytes # (Auto) 1.35 K/uL (1.2-3.4) Monocytes # (Auto) 0.47 K/uL (0.11-0.59) Eosinophils # (Auto) 0.31 K/uL (0-0.5) Basophils # (Auto) 0.02 K/uL (0-0.2) RDW Standard Deviation 46.6 fL (36.4-46.3) RDW Coefficient of Variation 14.1 % (11.5-14.5) Immature Granulocyte % (Auto) 0.2 % Immature Granulocyte # (Auto) 0.01 K/uL (0.00-0.02) Prothrombin Time 10.0 SECONDS (9.0-12.0) Prothromb Time International Ratio 1.0 (0.9-1.1) Activated Partial Thromboplast Time 23.7 SECONDS (21.0-31.0) Partial Thromboplastin Ratio 0.9 Anion Gap 4.0 mmol/L (3-11) Est Creatinine Clear Calc Drug Dose 34.5 ml/min Estimated GFR () 35.9 Estimated GFR (Non- 31.0 BUN/Creatinine Ratio 15.3 (10-20) Calcium Level 8.7 mg/dl (8.5-10.1) Total Bilirubin 0.4 mg/dl (0.2-1) Direct Bilirubin < 0.1 mg/dl (0-0.2) Aspartate Amino Transf (AST/SGOT) 12 U/L (15-37) Alanine Aminotransferase (ALT/SGPT) 19 U/L (12-78) Alkaline Phosphatase 88 U/L (45-117) Total Protein 7.2 gm/dl (6.4-8.2) Albumin 3.2 gm/dl (3.4-5.0) Lipase 103 U/L (73-393) Urine Color YELLOW Urine Appearance CLEAR (CLEAR) Urine pH 6.0 (4.5-7.5) Urine Specific [place] 1.016 (1.000-1.030) Urine Protein NEG (NEG) Urine Glucose (UA) NEG (NEG) Urine Ketones NEG (NEG) Urine Occult Blood NEG (NEG) Urine Nitrite NEG (NEG) Urine Bilirubin NEG (NEG) Urine Urobilinogen NEG (NEG) Urine Leukocyte Esterase NEG (NEG) Laboratory results reviewed by me ECG Indication: other (Bleeding) Rate (beats per minute): 76 Rhythm: sinus rhythm Findings: 1st degree AV block, PVC, RBBB, no acute ischemic change, other ( poor r-wave progression, old anterolateral infarct) Comparison ECG Date: 30 october 2016 Change: no significant change Change: ECG interpreted by [facility] ED Course 1306: The patient was evaluated in room B7. A complete history and physical exam was performed. 1602: I reevaluated the patient. Discussed results and discharge instructions: He verbalized understanding and agreement. The patient is ready for discharge. Medical Decision Prior records/ancillary studies reviewed. Triage Nursing notes reviewed and agree them. Additional history obtained from the daughter. The patient's history was concerning for rectal bleeding. Differential diagnosis: Etiologies such as hemorrhoids, fissure, diverticulosis, AVM, coagulopathy, colitis, inflammatory bowel disease, malignancy, peptic ulcer disease, variceal bleed, as well as others were entertained. Physical exam: As above. Mild hemorrhoidal disease. No thrombosis. No fissures seen. Rectal heme-negative. ER treatment provided: Monitoring Reassurance On reassessment the patient felt better. Diagnostics interpreted by me: ECG showed a sinus rhythm. No significant change. The labs revealed the patient had unremarkable CBC and chemistry panel. Imaging studies: Deferred The patient had a lot of blood on the toilet paper with repetitive wiping. I suspect hemorrhoidal issues. He does have intermittent constipation issue which could exacerbate the problem. High fiber diet was recommended. Close follow-up as an outpatient was also recommended. Patient felt comfortable and desired discharge. By the evaluation outlined above emergent etiologies such as esophageal perforation, peptic ulcer disease, variceal bleed, coagulopathy, gastritis, epistaxis, malignancy, inflammatory bowel disease, as well as others were deemed relatively unlikely. The patient and daughter were informed about the findings as listed above. All questions were answered and they were pleased with the treatment. Return instructions were outlined and the patient was discharged in stable condition. Outpatient prescription management: None Referral: The patient was referred back to his primary care physician for follow-up in 2 to 3 days for a recheck of the current condition. The chart was completed utilizing [employer] Speech voice recognition software. Grammatical errors, random word insertions, pronoun errors, and incomplete sentences are an occasional consequence of this system due to software limitations, ambient noise, and hardware issues. Any formal questions or concerns about the content, text, or information contained within the body of this dictation should be directly addressed to the physician for clarification. Medication Reconcilliation Current Medication List: was personally reviewed by me Blood Pressure Screening Patient's blood pressure: Normal blood pressure Blood pressure disposition: Did not require urgent referral Impression Primary Impression: Rectal bleeding Additional Impression: Hemorrhoids Scribe Attestation The scribe's documentation has been prepared under my direction and personally reviewed by me in its entirety. I confirm that the note above accurately reflects all work, treatment, procedures, and medical decision making performed by me. Departure Information Dispostion Home / Self-Care Referrals Claudy Jung D.O. (PCP) Forms HOME CARE DOCUMENTATION FORM, IMPORTANT VISIT INFORMATION Patient Instructions ED Diet High Fiber, Hemorrhoids Dx, [facility] Additional Instructions Hemorrhoids found on examination. They were not bleeding or infected. Preparation H as needed for any discomfort or itching. Acetaminophen(Tylenol) may be used for fever or pain. Use 1000mg every six hours as needed. Avoid using more than 4000mg in a 24 hour period. Rest and drink plenty of fluids as tolerated. Slow sips of water or sports drinks are recommended instead of large amounts all at once. Continue current medications. Increase fiber in your diet. Return to the ER immediately for rectal pain, vomiting, fevers, chest pains, difficulty breathing, black or bloody stools, worsening of your condition, or as needed. Follow up with your primary physician in 2-3 days for a recheck of your current condition. Problem Qualifiers
== END 2017-09-10 16:27 | disposition home or self-care (01) ==
LOC: C.EDB 12:48
DX: K62.5 Hemorrhage of anus and rectum (principal); K64.9 Unspecified hemorrhoids; J44.9 Chronic obstructive pulmonary disease, unspecified; F41.9 Anxiety disorder, unspecified; N40.0 Benign prostatic hyperplasia without lower urinary tract symptoms; E78.5 Hyperlipidemia, unspecified; I10 Essential (primary) hypertension; M10.9 Gout, unspecified; I44.0 Atrioventricular block, first degree; I49.3 Ventricular premature depolarization; I45.10 Unspecified right bundle-branch block; Z86.711 Personal history of pulmonary embolism; Z96.659 Presence of unspecified artificial knee joint; Z79.82 Long term (current) use of aspirin

== ENCOUNTER 2017-10-24 12:22 | Emergency (ER) | payer OTHER ==
[~2017-10-24] VITALS: Ht 177.8 cm; Wt 115.9 kg
[~2017-10-24 12:22] MED LIST changes: -ALBU18002 INH; -ASCO500T16 PO; -ASPI-232 PO; -ATRINSX NEB; -CHOL2000 PO; -FLUT1INH INH; -LEVO-459 PO; -LSX40 PO; -METO50TA16 PO; -OMEP40CA41 PO; -OXGN; -PANT40TA PO; -POTA20TA13 PO; -SENN-61 PO; -SPRIN INH; -TAMS0.4C38 PO
[2017-10-24 12:27] VITALS: TEMP 36.9; Ht 177.8 cm; Wt 115.9 kg
[2017-10-24 12:32] VITALS: O2SAT 96
[2017-10-24 12:55] LABS: BASO % 0.3 %; BASO ABS # 0.02 K/uL (0-0.2); EOS % 3.5 %; EOS ABS # 0.24 K/uL (0-0.5); HEMATOCRIT 42.1 % (42-52); HEMOGLOBIN 14.7 g/dL (14.0-18.0); IG# 0.02 K/uL (0.00-0.02); LYMPH ABS # 1.73 K/uL (1.2-3.4); MEAN CELL VOLUME 90.1 fL (80-100); MEAN CORPUSCULAR HEMOGLOBIN 31.5 pg (25-34); MEAN CORPUSCULAR HGB CONC 34.9 g/dl (32-36); MEAN PLATELET VOLUME 10.3 fL (7.4-10.4); MONO % 9.7 %; MONO ABS # 0.67 K/uL (0.11-0.59); NEUT % 61.2 %; NEUT ABS # 4.24 K/uL (1.4-6.5); PLATELET COUNT 174 K/uL (130-400); RED CELL DISTRIBUTION WIDTH CV 13.9 % (11.5-14.5); RED CELL DISTRIBUTION WIDTH SD 45.7 fL (36.4-46.3); WHITE BLOOD COUNT 6.92 K/uL (4.8-10.8)
[2017-10-24 13:02] LABS: ALBUMIN 3.2 gm/dl (3.4-5.0); ALT/SGPT 22 U/L (12-78); AST/SGOT 12 U/L (15-37); BLOOD UREA NITROGEN 33 mg/dl (7-18); CALCIUM 8.6 mg/dl (8.5-10.1); CARBON DIOXIDE 29 mmol/L (21-32); CREATININE 1.67 mg/dl (0.60-1.40); GLUCOSE 91 mg/dl (70-99); LIPASE 106 U/L (73-393); SODIUM 135 mmol/L (136-145)
[2017-10-24 13:04] LABS: INR 0.9 (0.9-1.1); PTT PATIENT 24.3 SECONDS (21.0-31.0)
[2017-10-24 13:07] LABS: ALKALINE PHOSPHATASE 97 U/L (45-117); TOTAL PROTEIN 6.7 gm/dl (6.4-8.2)
[2017-10-24] MEDS ORDERED: TRAZ50TA35 PO (13:09)
--- NOTE | 2017-10-24 13:18 | DIAGNOSTIC IMAGING REPORT ---
SINGLE VIEW CHEST CLINICAL HISTORY: Dyspnea. FINDINGS: An AP, portable, upright chest radiograph is compared to study dated 10/28/2016. The examination is degraded by portable technique and patient rotation. The heart is enlarged and there is atherosclerotic calcification of the thoracic aorta. The pulmonary vasculature is noncongested. Chronic interstitial thickening is similar to previous. Bibasilar atelectasis is noted. The lungs and pleural spaces are otherwise clear. No pneumothorax is seen. The skeletal structures are osteopenic. The bony thorax is grossly intact. IMPRESSION: Cardiomegaly with no acute cardiopulmonary abnormality. Electronically signed by: Kunal Olguin M.D. 10/24/2017 1:16 PM Dictated Date/Time: 10/24/2017 1:16 PM
[2017-10-24] MEDS ORDERED: POTA10CA28 PO (13:29)
[2017-10-24] MEDS ORDERED: LCTX PO (13:29)
[2017-10-24] MEDS ORDERED: LPR25 PO (13:29)
[2017-10-24] MEDS ORDERED: FUROSEMIDE INJ 20 MG in SYRINGE 0 ML IV ONE (13:45)
[2017-10-24] MEDS ORDERED: FUROSEMIDE 40 MG/4 ML VIAL IV ONE (13:45)
[2017-10-24] MEDS ORDERED: FUROSEMIDE 40 MG/4 ML VIAL ONE (13:49)
[2017-10-24] MEDS ORDERED: HYDR-3126 PO (14:14)
--- NOTE | 2017-10-24 14:16 | EMERGENCY ROOM VISIT NOTE ---
History Report prepared by Geoffrey: Celestino Coombs Under the Supervision of: Dr. Trent Sánchez M.D. First contact with patient: 12:27 Chief Complaint: SHORTNESS OF BREATH Stated Complaint: SOB History of Present Illness The patient is a 87 year old white male with a past medical history of gout, HLD , HTN, COPD, BPH, anxiety, PE, hernia repair, IVC filter placement, s/p appendectomy who presents to the ED with a cc of improving shortness of breath beginning 6.5 hours ago. Patient was laying in bed, and was already awake when he noticed his symptoms. His symptoms improved after taking his morning medications. Positive mild leg swelling. Negative chest pain, cough, fevers, chills, nausea, vomiting, leg pain, or weight gain. Patient had a flu-shot this year. No recent medication changes. Source of History: patient Onset: 6.5 hours ago Quality: other (shortness of breath) Timing: other (improving) Modifying Factors (Relieving): other (morning medications) Associated Symptoms: No fevers, No chills, No chest pain, No nausea, No vomiting Note: Positive: mild leg swelling. Negative: leg pain, weight gain. Review of Systems See HPI for pertinent positives and negatives. A total of ten systems were reviewed and were otherwise negative. Past Medical & Surgical Medical Problems: (1) Abdominal pain (2) LIAM (acute kidney injury) (3) Anxiety (4) BPH (benign prostatic hyperplasia) (5) COPD (chronic obstructive pulmonary disease) (6) Current use of manager terminal anticoagulation (7) Gout (8) HLD (hyperlipidemia) (9) HTN (hypertension) (10) Pulmonary emboli Surgical Problems: (1) H/O colonoscopy (2) H/O hernia repair (3) H/O total knee replacement (4) S/P appendectomy (5) S/P IVC filter (6) S/P tonsillectomy Family History Noncontributory due to advanced age Social History Smoking Status: Never Smoker Alcohol Use: occasionally Drug Use: none Marital Status: Housing Status: lives alone Occupation Status: retired Current/Historical Medications Scheduled Allopurinol (Zyloprim), 200 MG PO DAILY Aspirin (Aspir-81), 1 TAB PO DAILY Cholecalciferol (Vitamin D3), 4,000 UNITS PO DAILY Fluticasone Furoate-Vilanterol (Breo Ellipta), 1 PUFF INH DAILY Furosemide (Furosemide), 40 MG PO DAILY Lactobacillus Acidophilus (Lactinex), 1 TAB PO BID Metoprolol Tartrate (Lopressor), 50 MG PO BID Potassium Chloride (Micro-K Ext Rel), 10 MEQ PO BID Ranitidine Hcl (Zantac), 300 MG PO HS Tamsulosin Hcl (Flomax), 1 CAP PO DAILY Tiotropium [place] (Spiriva Handihaler), 18 MCG INH DAILY Trazodone Hcl (Trazodone), 12.5 MG PO HS Scheduled PRN Hydroxyzine Hcl (Atarax), 0.5 TAB PO HS PRN for Insomnia Allergies Coded Allergies: Penicillins (Verified Allergy, Severe, ANAPHYLAXIS, 10/24/17) Codeine (Verified Allergy, Unknown, UNKNOWN, 10/24/17) Latex1 -Allergic Contact Dermititis (Verified Allergy, Unknown, unk, ) Propoxyphene (Verified Allergy, Unknown, SHORTNESS OF BREATH, 10/24/17) Physical Exam Vital Signs Date Time Temp Pulse Resp B/P (MAP) Pulse Ox O2 Delivery O2 Flow Rate FiO2 10/24/17 13:29 76 18 125/84 93 Room Air 10/24/17 12:48 81 10/24/17 12:32 96 Room Air 10/24/17 12:27 96 Room Air 10/24/17 12:27 36.9 80 22 124/91 96 Room Air Physical Exam GENERAL: Awake, alert, well-appearing, NAD HENT: Normocephalic, atraumatic. EYES: Normal conjunctiva. Sclera non-icteric. NECK: Supple. No nuchal rigidity. FROM. RESPIRATORY: CTAB, no rhonchi, wheezing, crackles CARDIAC: RRR, no MRG ABDOMEN: Soft, NTND, BS+ MSK: No chest wall TTP, trace LE edema NEURO: GCS 15, CN 2-12 intact, moves all 4s on command SKIN: No rash or jaundice noted. Medical Decision & Procedures ER Provider Diagnostic Interpretation: Radiology results as stated below per my review and radiologist interpretation: SINGLE VIEW CHEST FINDINGS: An AP, portable, upright chest radiograph is compared to study dated 10/28/2016. The examination is degraded by portable technique and patient rotation. The heart is enlarged and there is atherosclerotic calcification of the thoracic aorta. The pulmonary vasculature is noncongested. Chronic interstitial thickening is similar to previous. Bibasilar atelectasis is noted. The lungs and pleural spaces are otherwise clear. No pneumothorax is seen. The skeletal structures are osteopenic. The bony thorax is grossly intact. IMPRESSION: Cardiomegaly with no acute cardiopulmonary abnormality. Electronically signed by: Kunal Olguin M.D. 10/24/2017 1:16 PM Laboratory Results 10/24/17 12:00 Red Blood Count 4.67, Mean Corpuscular Volume 90.1, Mean Corpuscular Hemoglobin 31.5, Mean Corpuscular Hemoglobin Concent 34.9, Mean Platelet Volume 10.3, Neutrophils (%) (Auto) 61.2, Lymphocytes (%) (Auto) 25.0, Monocytes (%) (Auto) 9.7, Eosinophils (%) (Auto) 3.5, Basophils (%) (Auto) 0.3, Neutrophils # (Auto) 4.24, Lymphocytes # (Auto) 1.73, Monocytes # (Auto) 0.67, Eosinophils # (Auto) 0.24, Basophils # (Auto) 0.02 10/24/17 12:00 Test 10/24/17 12:00 White Blood Count 6.92 K/uL (4.8-10.8) Red Blood Count 4.67 M/uL (4.7-6.1) Hemoglobin 14.7 g/dL (14.0-18.0) Hematocrit 42.1 % (42-52) Mean Corpuscular Volume 90.1 fL (80-100) Mean Corpuscular Hemoglobin 31.5 pg (25-34) Mean Corpuscular Hemoglobin Concent 34.9 g/dl (32-36) Platelet Count 174 K/uL (130-400) Mean Platelet Volume 10.3 fL (7.4-10.4) Neutrophils (%) (Auto) 61.2 % Lymphocytes (%) (Auto) 25.0 % Monocytes (%) (Auto) 9.7 % Eosinophils (%) (Auto) 3.5 % Basophils (%) (Auto) 0.3 % Neutrophils # (Auto) 4.24 K/uL (1.4-6.5) Lymphocytes # (Auto) 1.73 K/uL (1.2-3.4) Monocytes # (Auto) 0.67 K/uL (0.11-0.59) Eosinophils # (Auto) 0.24 K/uL (0-0.5) Basophils # (Auto) 0.02 K/uL (0-0.2) RDW Standard Deviation 45.7 fL (36.4-46.3) RDW Coefficient of Variation 13.9 % (11.5-14.5) Immature Granulocyte % (Auto) 0.3 % Immature Granulocyte # (Auto) 0.02 K/uL (0.00-0.02) Prothrombin Time 9.9 SECONDS (9.0-12.0) Prothromb Time International Ratio 0.9 (0.9-1.1) Activated Partial Thromboplast Time 24.3 SECONDS (21.0-31.0) Partial Thromboplastin Ratio 0.9 Anion Gap 6.0 mmol/L (3-11) Est Creatinine Clear Calc Drug Dose 39.7 ml/min Estimated GFR () 42.0 Estimated GFR (Non- 36.2 BUN/Creatinine Ratio 19.8 (10-20) Calcium Level 8.6 mg/dl (8.5-10.1) Total Bilirubin 0.3 mg/dl (0.2-1) Direct Bilirubin < 0.1 mg/dl (0-0.2) Aspartate Amino Transf (AST/SGOT) 12 U/L (15-37) Alanine Aminotransferase (ALT/SGPT) 22 U/L (12-78) Alkaline Phosphatase 97 U/L (45-117) Troponin I < 0.015 ng/ml (0-0.045) Pro-B-Type Natriuretic Peptide 243 pg/ml (0-1800) Total Protein 6.7 gm/dl (6.4-8.2) Albumin 3.2 gm/dl (3.4-5.0) Lipase 106 U/L (73-393) Laboratory results reviewed by me Medications Administered Medications (Trade) Dose Ordered Sig/Bladimir Route Start Time Stop Time Status Last Admin Dose Admin Furosemide (Lasix Inj) 20 mg NOW ONCE IV 10/24/17 13:45 10/24/17 13:48 DC 10/24/17 13:51 20 MG ECG Per My Interpretation Indication: SOB/dyspnea Rate (beats per minute): 84 Rhythm: sinus rhythm Findings: 1st degree AV block, PVC, left axis deviation Comparison ECG Date: 09/10/2017 Change: no significant change (more ectopy) ED Course 1230: The patient was evaluated in room A4B. A complete history and physical exam was performed. 1350: I reevaluated the patient. He is sleeping and feels well. Discussed results and discharge instructions: he verbalized understanding and agreement. The patient is ready for discharge. Medical Decision The patient is a 87 year old white male with a past medical history of gout, HLD , HTN, COPD, BPH, anxiety, PE, hernia repair, IVC filter placement, s/p appendectomy who presents to the ED with a cc of improving shortness of breath beginning 6.5 hours ago. Differential diagnosis: Etiologies such as infections, reactive airway disease, pneumonia, pneumothorax , COPD, CHF, cardiac ischemia, pulmonary embolism, musculoskeletal, gastrointestinal, as well as others were entertained. Prior records were reviewed. Patient was seen and evaluated at the bedside. Patient was presenting with concerns for difficulty with shortness of breath. Patient states this began around 6 AM this morning. This was after he had woken up. Patient did state that since then his symptoms have improved. Patient states that the only thing different is that he took his morning medications. Patient denies any true dyspnea on exertion. The patient does have a prior history of blood clots. The patient is currently only on a baby aspirin. Patient does not appear that volume overloaded he has some trace lower extremity edema and clear lung sounds. Patient did have blood work completed, EKG, troponin, BNP, chest x-ray. Patient 's chest x-ray with cardiomegaly but no volume overload, consolidation, or pleural effusion noted. Patient's EKG is fairly unchanged. Patient does have ectopy noted. Chest x-ray last night patient's BMP does show some CKD with a creatinine of 1.67 which is essentially at baseline. Patient white blood cell count normal. Troponin negative. BNP is not elevated either. Patient was given Lasix 20 mg IV. Upon reassessment of the patient the patient was sleeping and not tachypneic not hypoxic and did not have any elevated blood pressures or tachycardia. Patient did state that he was on some difficulty with sleeping. The patient was given a prescription for some Vistaril to help with sleep. I did discuss the patient with the daughter at the bedside. Given that the patient does not have any acute symptomatic complaints that got better with his home medications I believe that he is stable for outpatient follow-up and discharge. Patient was given strict follow-up, discharge, and return precautions. All questions were answered. Patient was deemed suitable for outpatient follow-up at this time. Patient agreed with the plan of care and was safely discharged home. Medication Reconcilliation Current Medication List: was personally reviewed by me Blood Pressure Screening Patient's blood pressure: Normal blood pressure Blood pressure disposition: Did not require urgent referral Impression Primary Impression: SOB (shortness of breath) Additional Impression: Insomnia Scribe Attestation The scribe's documentation has been prepared under my direction and personally reviewed by me in its entirety. I confirm that the note above accurately reflects all work, treatment, procedures, and medical decision making performed by me. Departure Information Dispostion Home / Self-Care Prescriptions Hydroxyzine Hcl (ATARAX) 50 Mg Tab 0.5 TAB PO HS Y for Insomnia for 12 Days, #12 TAB 12 Refills Prov: Trent Sánchez M.D. 10/24/17 Referrals Claudy Jung D.O. (PCP) Patient Instructions ED Dyspnea Shortness of Breath, ED Insomnia, My [facility] Additional Instructions Please return to the emergency department if you have worsening or recurrent symptoms not amenable to at-home treatment. Please call for a follow-up appointment with her primary care physician. Please take your medications as prescribed. If you have other concerns and/or complaints please feel free to also call your primary care physician's office or return the ED for further evaluation, management, and treatment. Take your medications as prescribed. You have been examined and treated today on an emergency basis only. This is not a substitute for, or an effort to provide, complete comprehensive medical care. It is impossible to recognize and treat all injuries or illnesses in a single emergency department visit. It is therefore important that you follow up closely with [facility], your PCP, and/or your specialist(s). Call as soon as possible for an appointment. Thank you for your time and consideration. I look forward to speaking with you again soon. Please don't hesitate to call us if you have any questions. Problem Qualifiers Additional Impression: Insomnia Insomnia type: unspecified Qualified Codes: G47.00 - Insomnia, unspecified
[2017-10-24 15:11] VITALS: BP 119/91; PULSE 88; O2SAT 96
[2017-10-24] MEDS ORDERED: LSX40 PO (16:13)
[2017-10-24] MEDS ORDERED: SPRIN INH (18:39)
[2017-10-24] MEDS ORDERED: TAMS0.4C38 PO (18:39)
[2017-10-24] MEDS ORDERED: ASPI-232 PO (19:05)
[2017-10-24] MEDS ORDERED: FLUT1INH INH (19:05)
[2017-10-24] MEDS ORDERED: CHOL2000 PO (23:54)
== END 2017-10-24 15:00 | disposition home or self-care (01) ==
LOC: EDBD 12:22 → C.EDA 12:23
DX: R06.02 Shortness of breath (principal); G47.00 Insomnia, unspecified; E78.5 Hyperlipidemia, unspecified; I10 Essential (primary) hypertension; N40.0 Benign prostatic hyperplasia without lower urinary tract symptoms; Z86.711 Personal history of pulmonary embolism; F41.9 Anxiety disorder, unspecified; J44.9 Chronic obstructive pulmonary disease, unspecified; M10.9 Gout, unspecified; Z79.82 Long term (current) use of aspirin; Z79.899 Other long term (current) drug therapy; Z88.0 Allergy status to penicillin; Z88.5 Allergy status to narcotic agent; Z88.8 Allergy status to other drugs, medicaments and biological substances

== ENCOUNTER 2018-01-01 12:04 | Emergency (ER) | payer OTHER ==
[~2018-01-01] VITALS: Ht 177.8 cm; Wt 106.9 kg
[~2018-01-01 12:04] MED LIST changes: +ASPI-232 PO; +CHOL2000 PO; +FLUT1INH INH; +HYDR-3126 PO; +LCTX PO; +LPR25 PO; +LSX40 PO; +POTA10CA28 PO; +SPRIN INH; +TAMS0.4C38 PO; +TRAZ50TA35 PO
[2018-01-01 12:05] VITALS: TEMP 37.3; Ht 177.8 cm; Wt 106.9 kg
--- NOTE | 2018-01-01 12:38 | EMERGENCY ROOM VISIT NOTE ---
History Report prepared by Geoffrey: Chris Mahan Under the Supervision of: Dr. Will Mcfarland M.D. First contact with patient: 12:21 Chief Complaint: ANXIETY Stated Complaint: ANXIETY History of Present Illness The patient is a 87 year old male who presents to the Emergency Room with complaints of worsening anxiety that began a couple of days ago. Patient is present with his caregiver. Caregiver states that lives by himself but receives 24/7 home care. Caregiver states that the patient has a history of Alzheimer's and dementia. Patient states that he has been having suicidal thoughts. Caregiver adds that the patient told her 3 days ago that "sometimes he just wants to end it". Caregiver then states that the patient has only gotten about "5 hours of sleep in the last 3 days". Caregiver adds that the patient was prescribed 25mg Trazodone for his sleeping problems but the patient's daughter thought that that was too much so she was cutting the patient's pills in half. She adds that when the patient went back to his doctor, the dose was increased to 50mg. She states that the patient was still unable to sleep so the patient's dose was then increased to 100mg. Caregiver states that the patient's PCP is Dr. Boyd. Caregiver then states that the patient told her about a thought he has been having about a "fish eating a baby duck". She adds that this has exacerbated the patient's anxiety and it is "all he has been thinking about". Patient adds that he gets dyspneic when he sleeps. Caregiver states that the patient has not been eating much lately. Caregiver states that the patient has an appointment in 4 days with a psychiatrist. She adds has been "peeing himself " more than usual lately and has had "bowel movements" on the floor. She states that the patient was yelling and crying today. She states that this is not the patient's baseline and "so far from it". Patient denies fevers, chest pain, and urinary symptoms. Patient denies any recent falls. Source of History: patient, caregiver Onset: Couple of days ago Position: head Timing: worsening Modifying Factors (Worsening): other (Thought of "fish eating a baby duck") Modifying Factors (Relieving): other (None) Associated Symptoms: No fevers, No chest pain, No urinary symptoms Review of Systems See HPI for pertinent positives & negatives. A total of 10 systems reviewed and were otherwise negative. Past Medical & Surgical Medical Problems: (1) Abdominal pain (2) LIAM (acute kidney injury) (3) Anxiety (4) BPH (benign prostatic hyperplasia) (5) COPD (chronic obstructive pulmonary disease) (6) Current use of terminal operator anticoagulation (7) Gout (8) HLD (hyperlipidemia) (9) HTN (hypertension) (10) Pulmonary emboli Surgical Problems: (1) H/O colonoscopy (2) H/O hernia repair (3) H/O total knee replacement (4) S/P appendectomy (5) S/P IVC filter (6) S/P tonsillectomy Old medical records were reviewed. Nurse's notes were reviewed and I agree with. Family History Noncontributory due to advanced age Social History Smoking Status: Never Smoker Alcohol Use: occasionally Drug Use: none Marital Status: Housing Status: lives alone Occupation Status: retired Current/Historical Medications Scheduled Allopurinol (Zyloprim), 200 MG PO DAILY Aspirin (Aspir-81), 1 TAB PO DAILY Fluticasone Furoate-Vilanterol (Breo Ellipta), 1 PUFF INH DAILY Furosemide (Furosemide), 40 MG PO DAILY Lactobacillus Acidophilus (Lactinex), 1 TAB PO BID Metoprolol Tartrate (Lopressor), 50 MG PO BID Potassium Chloride (Micro-K Ext Rel), 20 MEQ PO BID Ranitidine Hcl (Zantac), 300 MG PO HS Tamsulosin Hcl (Flomax), 1 CAP PO DAILY Tiotropium [place] (Spiriva Handihaler), 18 MCG INH DAILY Trazodone HCl (Trazodone HCl), 100 MG PO HS Allergies Coded Allergies: Penicillins (Verified Allergy, Severe, ANAPHYLAXIS, 01/01/18) Codeine (Verified Allergy, Unknown, UNKNOWN, 01/01/18) Latex1 -Allergic Contact Dermititis (Verified Allergy, Unknown, unk, ) Propoxyphene (Verified Allergy, Unknown, SHORTNESS OF BREATH, 01/01/18) Physical Exam Vital Signs Date Time Temp Pulse Resp B/P (MAP) Pulse Ox O2 Delivery O2 Flow Rate FiO2 01/01/18 14:05 87 18 161/112 95 Room Air 01/01/18 12:05 37.3 80 18 149/98 94 Room Air Physical Exam General: Non-ill appearing older male in no acute distress. Answer questions appropriately. Patient has dementia but is alert to person, place, year, and month. HEENT: Normal cephalic atraumatic. Pupils are equal round and reactive to light. Extraocular movements are intact. Oropharynx is pink with moist mucous membranes. No swelling of the mouth lips or tongue. Neck: Supple with a midline trachea. No meningeal signs or stiffness, no JVD or bruits. No Stridor. Chest: Clear to auscultation bilaterally. No wheezes or rhonchi. No increased work of breathing. Heart: regular rate and rhythm. Abdomen: Soft nontender, nondistended without rebound guarding or rigidity. Extremities: No cyanosis clubbing or edema. No calf tenderness or assymetry Spine/Back. Non tender to palpation. No CVA tenderness Skin: Good turgor without rashes. Neurologic exam: Cranial nerves two through 12 are intact. Motor and sensation are intact and symmetrical throughout. Psych: Normal affect. Denies SI at present. Medical Decision & Procedures Laboratory Results 01/01/18 13:30 Red Blood Count 4.72, Mean Corpuscular Volume 89.0, Mean Corpuscular Hemoglobin 31.8, Mean Corpuscular Hemoglobin Concent 35.7, Mean Platelet Volume 9.4, Neutrophils (%) (Auto) 76.5, Lymphocytes (%) (Auto) 14.6, Monocytes (%) (Auto) 6.4, Eosinophils (%) (Auto) 2.1, Basophils (%) (Auto) 0.1, Neutrophils # (Auto) 5.40, Lymphocytes # (Auto) 1.03, Monocytes # (Auto) 0.45, Eosinophils # (Auto) 0.15, Basophils # (Auto) 0.01 01/01/18 13:30 Test 01/01/18 12:05 01/01/18 13:30 01/01/18 14:00 Urine Color YELLOW Urine Appearance CLEAR (CLEAR) Urine pH 6.0 (4.5-7.5) Urine Specific [place] 1.010 (1.000-1.030) Urine Protein NEG (NEG) Urine Glucose (UA) NEG (NEG) Urine Ketones NEG (NEG) Urine Occult Blood NEG (NEG) Urine Nitrite NEG (NEG) Urine Bilirubin NEG (NEG) Urine Urobilinogen NEG (NEG) Urine Leukocyte Esterase NEG (NEG) White Blood Count 7.06 K/uL (4.8-10.8) Red Blood Count 4.72 M/uL (4.7-6.1) Hemoglobin 15.0 g/dL (14.0-18.0) Hematocrit 42.0 % (42-52) Mean Corpuscular Volume 89.0 fL (80-100) Mean Corpuscular Hemoglobin 31.8 pg (25-34) Mean Corpuscular Hemoglobin Concent 35.7 g/dl (32-36) Platelet Count 182 K/uL (130-400) Mean Platelet Volume 9.4 fL (7.4-10.4) Neutrophils (%) (Auto) 76.5 % Lymphocytes (%) (Auto) 14.6 % Monocytes (%) (Auto) 6.4 % Eosinophils (%) (Auto) 2.1 % Basophils (%) (Auto) 0.1 % Neutrophils # (Auto) 5.40 K/uL (1.4-6.5) Lymphocytes # (Auto) 1.03 K/uL (1.2-3.4) Monocytes # (Auto) 0.45 K/uL (0.11-0.59) Eosinophils # (Auto) 0.15 K/uL (0-0.5) Basophils # (Auto) 0.01 K/uL (0-0.2) RDW Standard Deviation 43.4 fL (36.4-46.3) RDW Coefficient of Variation 13.3 % (11.5-14.5) Immature Granulocyte % (Auto) 0.3 % Immature Granulocyte # (Auto) 0.02 K/uL (0.00-0.02) Anion Gap 7.0 mmol/L (3-11) Est Creatinine Clear Calc Drug Dose 40.6 ml/min Estimated GFR () 45.3 Estimated GFR (Non- 39.1 BUN/Creatinine Ratio 14.8 (10-20) Calcium Level 8.9 mg/dl (8.5-10.1) Total Bilirubin 0.4 mg/dl (0.2-1) Direct Bilirubin 0.1 mg/dl (0-0.2) Aspartate Amino Transf (AST/SGOT) 14 U/L (15-37) Alanine Aminotransferase (ALT/SGPT) 20 U/L (12-78) Alkaline Phosphatase 97 U/L (45-117) Total Protein 7.3 gm/dl (6.4-8.2) Albumin 3.5 gm/dl (3.4-5.0) Lipase 94 U/L (73-393) Thyroid Stimulating Hormone (TSH) 1.590 uIu/ml (0.300-4.500) Prothrombin Time 10.2 SECONDS (9.0-12.0) Prothromb Time International Ratio 1.0 (0.9-1.1) Activated Partial Thromboplast Time 25.8 SECONDS (21.0-31.0) Partial Thromboplastin Ratio 1.0 Laboratory studies as stated above per my review. ECG Per My Interpretation Indication: altered mental status Rate (beats per minute): 78 Rhythm: normal sinus Findings: 1st degree AV block, LAFB, RBBB, no acute ischemic change Comparison ECG Date: 10/24/2017 Change: PVCs are now absent. ED Course 1223: Past medical records reviewed. The patient was evaluated in room A7, and a complete history and physical examination were performed. 1433: Patient has been medically cleared. Psychiatric lining caser is at bed- side with the patient. 1508: I reassessed the patient. He states that he is feeling anxious so I ordered 0.5mg of Ativan for the patient. Psychiatric lining caser is currently trying to pursue inpatient placement for the patient. 1522: Patient was signed out to Dr. Molina at change of shifts. Medical Decision Differentials include, but are not limited to; anxiety, depression, infection, and electrolyte or metabolic abnormality. This patient comes in as described above. he does have history of dementia and has 24-hour care at home is brought in after they are concerned that he has increasing anxiety and he has not slept much over the last several days. 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 He denies any suicidal ideations at present but has had them a couple days ago. He denies any physical complaints at present. he has had no fall or trauma. No fever chills. No urinary symptoms. Multiple blood testing was obtained. He has stable vital signs here. he has no signs of infection. He has no acute electrolyte or metabolic abnormalities he has baseline renal insufficiency. He has nothing to suggest UTI. He is medically cleared and evaluated by psychiatric lining caser. He did receive Ativan 0.5 mg p.o. The lining caser has talked to the daughter as well as caregivers and would like to pursue inpatient treatment if possible. [facility] is currently working on placement. The patient will be signed outed to Dr. Molina at shift change he will follow-up on this. Medication Reconcilliation Current Medication List: was personally reviewed by me Blood Pressure Screening Patient's blood pressure: Elevated blood pressure Blood pressure disposition: Elevated BP felt to be situational Impression Primary Impression: Anxiety Scribe Attestation The scribe's documentation has been prepared under my direction and personally reviewed by me in its entirety. I confirm that the note above accurately reflects all work, treatment, procedures, and medical decision making performed by me. Departure Information Referrals Claudy Jung D.O. (PCP) Patient Instructions My [facility]
[2018-01-01 13:39] LABS: BASO % 0.1 %; BASO ABS # 0.01 K/uL (0-0.2); EOS % 2.1 %; EOS ABS # 0.15 K/uL (0-0.5); IG# 0.02 K/uL (0.00-0.02); LYMPH % 14.6 %; LYMPH ABS # 1.03 K/uL (1.2-3.4); MEAN CORPUSCULAR HEMOGLOBIN 31.8 pg (25-34); MEAN CORPUSCULAR HGB CONC 35.7 g/dl (32-36); MEAN PLATELET VOLUME 9.4 fL (7.4-10.4); MONO % 6.4 %; MONO ABS # 0.45 K/uL (0.11-0.59); NEUT % 76.5 %; PLATELET COUNT 182 K/uL (130-400); RED CELL DISTRIBUTION WIDTH CV 13.3 % (11.5-14.5); RED CELL DISTRIBUTION WIDTH SD 43.4 fL (36.4-46.3); WHITE BLOOD COUNT 7.06 K/uL (4.8-10.8)
[2018-01-01 14:07] LABS: ALBUMIN 3.5 gm/dl (3.4-5.0); CALCIUM 8.9 mg/dl (8.5-10.1); CREATININE 1.57 mg/dl (0.60-1.40); POTASSIUM 4.1 mmol/L (3.5-5.1); TOTAL PROTEIN 7.3 gm/dl (6.4-8.2)
[2018-01-01 14:19] LABS: PTT PATIENT 25.8 SECONDS (21.0-31.0)
[2018-01-01] MEDS ORDERED: DSY100 PO (14:21)
[2018-01-01] MEDS ORDERED: LORAZEPAM 0.5 MG TAB SL STA (15:04)
[2018-01-01] MEDS ORDERED: hydrOXYzine HCL 25 MG TAB PO STA (17:23)
--- NOTE | 2018-01-01 18:02 | DIAGNOSTIC IMAGING REPORT ---
CHEST ONE VIEW PORTABLE HISTORY: Anxiety. COMPARISON: Chest 10/24/2017. FINDINGS: The heart remains enlarged. Chronic elevation of the left hemidiaphragm. Bibasilar linear densities favor subsegmental atelectasis. This is also unchanged. Otherwise, the lungs are clear. No pneumothorax. IMPRESSION: No significant change compared to the prior study. No acute process. Stable mild cardiomegaly. Electronically signed by: Mathew Cordova M.D. 01/01/2018 6:01 PM Dictated Date/Time: 01/01/2018 5:59 PM
--- NOTE | 2018-01-01 18:22 | DIAGNOSTIC IMAGING REPORT ---
HEAD CT NONCONTRAST CT DOSE: 614.27 mGy.cm HISTORY: Headache. TECHNIQUE: Multiaxial CT images of the head were performed without the use of intravenous contrast. Automated exposure control was utilized for this study. A dose lowering technique was utilized adhering to the principles of ALARA. Comparison: Head CT 10/28/2016. Findings: The paranasal sinuses and mastoid air cells are clear. The calvarium and skull base are intact. There is no mass, hematoma, midline shift, acute infarct. White matter hypodensity is nonspecific but suggestive of microvascular ischemic change. The ventricles and sulci demonstrate mild age-related involutional changes. Impression: No significant change compared to the prior study. No acute intracranial abnormality. Electronically signed by: Mathew Cordova M.D. 01/01/2018 6:20 PM Dictated Date/Time: 01/01/2018 6:16 PM
--- NOTE | 2018-01-01 18:55 | EMERGENCY ROOM VISIT NOTE ---
ED Visit Note First contact with patient: 17:11 Patient was deemed medically stable by Dr. Mcfarland and signed out to me awaiting possible placement for discharge home. Patient has been unable to sleep for the past 3 days is very anxious when alone has had thoughts of wanting to per report. My evaluation he sitting up in bed resting comfortably but is requesting sleep. He was accepted in transfer and I did discuss with the physician via phone call labs and findings. Patient will be transferred to [place] for inpatient psychiatry treatment.
[2018-01-01 22:15] VITALS: BP 160/104; PULSE 86; O2SAT 98
== END 2018-01-01 22:50 ==
LOC: EDBD 12:04 → C.EDA 12:05
DX: F41.9 Anxiety disorder, unspecified (principal); G30.9 Alzheimer's disease, unspecified; F02.80 Dementia in other diseases classified elsewhere, unspecified severity, without behavioral disturbance, psychotic disturbance, mood disturbance, and anxiety; N40.0 Benign prostatic hyperplasia without lower urinary tract symptoms; J44.9 Chronic obstructive pulmonary disease, unspecified; E78.5 Hyperlipidemia, unspecified; I10 Essential (primary) hypertension; I44.0 Atrioventricular block, first degree; I44.4 Left anterior fascicular block; I45.10 Unspecified right bundle-branch block; Z86.711 Personal history of pulmonary embolism; Z79.82 Long term (current) use of aspirin; Z79.899 Other long term (current) drug therapy; Z88.0 Allergy status to penicillin; Z88.5 Allergy status to narcotic agent; Z91.040 Latex allergy status; Z88.8 Allergy status to other drugs, medicaments and biological substances

== ENCOUNTER 2018-04-11 17:24 | Emergency (ER) | payer OTHER ==
[~2018-04-11] VITALS: Ht 177.8 cm; Wt 116.8 kg
[~2018-04-11 17:24] MED LIST changes: -CHOL2000 PO; +DSY100 PO; -HYDR-3126 PO; -TRAZ50TA35 PO
[2018-04-11 17:33] VITALS: TEMP 36.9; Ht 177.8 cm; Wt 116.8 kg
[2018-04-11] MEDS ORDERED: ACETAMINOPHEN 500 MG TAB PO STA (17:37)
--- NOTE | 2018-04-11 17:44 | EMERGENCY ROOM VISIT NOTE ---
History Report prepared by Geoffrey: Raven Gonzales Under the Supervision of: Dr. Kunal Min M.D. First contact with patient: 17:28 Chief Complaint: DIZZY Stated Complaint: NAUSEA, DIZZINESS, HTN History of Present Illness The patient is a 87 year old male who presents to the Emergency Room with complaints of an episode of elevated blood pressure beginning this morning. He was at physical therapy this morning, where his high blood pressure was noted. The patient was called this afternoon and told to come to the ED. The patient states he has high blood pressure, and takes his medications as prescribed. He denies recent changes in his medications. The patient states he is feeling worried. He denies any pain, SOB, weakness, vomiting, diarrhea, or headache. He denies any recent falls. The patient notes he is unsure why he goes to physical therapy. He notes he was sent to PT by his doctor. The patient reports he lives alone, and his daughters take him to physical therapy. Nursing staff notes the patient felt dizzy and nauseous on his way to the ED (in the ambulance) and he stated he had a headache at that time. The patient's daughter arrived and reports she was called and told the patient felt unwell during his physical therapy session this morning and thus he was referred to the ED. She notes the patient has been going to physical therapy for some time, and this was not his first visit. Source of History: patient, family (daughter), nursing staff Onset: this afternoon Position: chest Quality: other (hypertension) Timing: other (episode) Associated Symptoms: No headache, No SOB, No vomiting, No diarrhea, No weakness Note: Associated symptom: feeling worried. Review of Systems See HPI for pertinent positives & negatives. A total of 10 systems reviewed and were otherwise negative. Past Medical & Surgical Medical Problems: (1) Abdominal pain (2) LIAM (acute kidney injury) (3) Anxiety (4) BPH (benign prostatic hyperplasia) (5) COPD (chronic obstructive pulmonary disease) (6) Current use of usp anticoagulation (7) Gout (8) HLD (hyperlipidemia) (9) HTN (hypertension) (10) Pulmonary emboli Surgical Problems: (1) H/O colonoscopy (2) H/O hernia repair (3) H/O total knee replacement (4) S/P appendectomy (5) S/P IVC filter (6) S/P tonsillectomy Family History Noncontributory due to advanced age Social History Smoking Status: Never Smoker Alcohol Use: occasionally Drug Use: none Marital Status: Housing Status: lives alone Occupation Status: retired Current/Historical Medications Scheduled Allopurinol (Zyloprim), 200 MG PO DAILY Aspirin (Aspir-81), 1 TAB PO DAILY Donepezil Hydrochloride (Aricept), 5 MG PO DAILY Fluticasone Furoate-Vilanterol (Breo Ellipta), 1 PUFF INH DAILY Furosemide (Lasix), 20 MG PO DAILY Memantine (Namenda), 5 MG PO DAILY Metoprolol Tartrate (Lopressor), 50 MG PO BID Potassium Chloride (Micro-K Ext Rel), 20 MEQ PO BID Ranitidine Hcl (Zantac), 300 MG PO HS Tamsulosin Hcl (Flomax), 1 CAP PO DAILY Tiotropium [place] (Spiriva Handihaler), 18 MCG INH DAILY Scheduled PRN Lorazepam (Ativan), 0.5 MG PO BID PRN for Anxiety and/or Sedation Quetiapine Fumarate (Seroquel), 50 MG PO HS PRN for Anxiety and/or Sedation Allergies Coded Allergies: Penicillins (Verified Allergy, Severe, ANAPHYLAXIS, 01/01/18) Codeine (Verified Allergy, Unknown, UNKNOWN, 01/01/18) Latex1 -Allergic Contact Dermititis (Verified Allergy, Unknown, unk, ) Propoxyphene (Verified Allergy, Unknown, SHORTNESS OF BREATH, 01/01/18) Physical Exam Vital Signs Date Time Temp Pulse Resp B/P (MAP) Pulse Ox O2 Delivery O2 Flow Rate FiO2 04/11/18 18:35 85 16 156/104 95 Room Air 04/11/18 17:49 80 04/11/18 17:33 36.9 78 20 142/98 91 Room Air Physical Exam GENERAL: Patient is in no acute distress. HEENT: No acute trauma, normocephalic atraumatic, mucous membranes moist, no nasal congestion, no scleral icterus. NECK: No stridor, no adenopathy, no meningismus, trachea is midline. LUNGS: Clear to auscultation bilaterally, no wheeze, no rhonchi, breath sounds equal. HEART: Without murmurs gallops or rubs, regular rate and rhythm. ABDOMEN: Soft, nontender, bowel sounds positive, no hernias, no peritonitis. EXTREMITIES: No cyanosis, mild bilateral pedal edema, full range of motion of all the joints without pain or difficulty, no signs for acute trauma. NEUROLOGIC: No acute motor or sensory deficits, no focal weakness. No cerebellar deficits or pronator drift. SKIN: No rash, no jaundice, no diaphoresis. Medical Decision & Procedures ER Provider Diagnostic Interpretation: Radiology results as stated below per my review and radiologist interpretation: CT HEAD WITHOUT CONTRAST (CT) CLINICAL HISTORY: Acute change in mental status COMPARISON STUDY: January 01, 2018 TECHNIQUE: Axial CT of the brain is performed from the vertex to the skull base. IV contrast was not administered for this examination. A dose lowering technique was utilized adhering to the principles of ALARA. CT DOSE: 884.08 mGy.cm FINDINGS: No intra or extra-axial mass lesions are visualized. There is no CT evidence of acute cortical infarction. There is no evidence of midline shift. There is no acute hemorrhage. No calvarial fractures are visualized. There are moderate white matter hypodensities likely on a small vessel basis. There is mild ventricular prominence of finding which is felt to be secondary to volume loss. This remain stable. There is no evidence of acute sinusitis IMPRESSION: No acute intracranial findings Electronically signed by: Maykel Pickering M.D. 04/11/2018 6:23 PM Dictated Date/Time: 04/11/2018 6:22 PM CHEST ONE VIEW PORTABLE CLINICAL HISTORY: EVALUATE ALTERED MENTAL STATUS/WEAKNESS COMPARISON STUDY: Chest radiograph January 01, 2018. FINDINGS: Elevation of the left hemidiaphragm is unchanged. Left basilar opacity suggests atelectasis. There is no consolidation to suggest pneumonia. There is no evidence for pulmonary edema. Cardiomegaly is unchanged. The appearance of the chest is unchanged. IMPRESSION: No acute cardiopulmonary findings. No change in appearance of the chest. Stable cardiomegaly. Electronically signed by: Roland Albarran M.D. 04/11/2018 5:53 PM Dictated Date/Time: 04/11/2018 5:52 PM Laboratory Results 04/11/18 17:15 Red Blood Count 4.78, Mean Corpuscular Volume 90.0, Mean Corpuscular Hemoglobin 30.3, Mean Corpuscular Hemoglobin Concent 33.7, Mean Platelet Volume 10.3, Neutrophils (%) (Auto) 66.9, Lymphocytes (%) (Auto) 22.3, Monocytes (%) (Auto) 7.1, Eosinophils (%) (Auto) 3.2, Basophils (%) (Auto) 0.3, Neutrophils # (Auto) 4.23, Lymphocytes # (Auto) 1.41, Monocytes # (Auto) 0.45, Eosinophils # (Auto) 0.20, Basophils # (Auto) 0.02 04/11/18 17:15 Test 04/11/18 17:15 04/11/18 18:20 04/11/18 18:30 White Blood Count 6.32 K/uL (4.8-10.8) Red Blood Count 4.78 M/uL (4.7-6.1) Hemoglobin 14.5 g/dL (14.0-18.0) Hematocrit 43.0 % (42-52) Mean Corpuscular Volume 90.0 fL (80-100) Mean Corpuscular Hemoglobin 30.3 pg (25-34) Mean Corpuscular Hemoglobin Concent 33.7 g/dl (32-36) Platelet Count 184 K/uL (130-400) Mean Platelet Volume 10.3 fL (7.4-10.4) Neutrophils (%) (Auto) 66.9 % Lymphocytes (%) (Auto) 22.3 % Monocytes (%) (Auto) 7.1 % Eosinophils (%) (Auto) 3.2 % Basophils (%) (Auto) 0.3 % Neutrophils # (Auto) 4.23 K/uL (1.4-6.5) Lymphocytes # (Auto) 1.41 K/uL (1.2-3.4) Monocytes # (Auto) 0.45 K/uL (0.11-0.59) Eosinophils # (Auto) 0.20 K/uL (0-0.5) Basophils # (Auto) 0.02 K/uL (0-0.2) RDW Standard Deviation 45.0 fL (36.4-46.3) RDW Coefficient of Variation 13.7 % (11.5-14.5) Immature Granulocyte % (Auto) 0.2 % Immature Granulocyte # (Auto) 0.01 K/uL (0.00-0.02) Anion Gap 8.0 mmol/L (3-11) Est Creatinine Clear Calc Drug Dose 43.0 ml/min Estimated GFR () 46.0 Estimated GFR (Non- 39.7 BUN/Creatinine Ratio 15.9 (10-20) Calcium Level 8.7 mg/dl (8.5-10.1) Magnesium Level 2.0 mg/dl (1.8-2.4) Total Bilirubin 0.4 mg/dl (0.2-1) Aspartate Amino Transf (AST/SGOT) 13 U/L (15-37) Alanine Aminotransferase (ALT/SGPT) 22 U/L (12-78) Alkaline Phosphatase 98 U/L (45-117) Troponin I < 0.015 ng/ml (0-0.045) Total Protein 7.0 gm/dl (6.4-8.2) Albumin 3.1 gm/dl (3.4-5.0) Globulin 3.9 gm/dl (2.5-4.0) Albumin/Globulin Ratio 0.8 (0.9-2) Thyroid Stimulating Hormone (TSH) 2.340 uIu/ml (0.300-4.500) Urine Color YELLOW Urine Appearance CLEAR (CLEAR) Urine pH 6.5 (4.5-7.5) Urine Specific [place] 1.019 (1.000-1.030) Urine Protein NEG (NEG) Urine Glucose (UA) NEG (NEG) Urine Ketones NEG (NEG) Urine Occult Blood NEG (NEG) Urine Nitrite NEG (NEG) Urine Bilirubin NEG (NEG) Urine Urobilinogen NEG (NEG) Urine Leukocyte Esterase NEG (NEG) Prothrombin Time 10.2 SECONDS (9.0-12.0) Prothromb Time International Ratio 1.0 (0.9-1.1) Activated Partial Thromboplast Time 26.1 SECONDS (21.0-31.0) Partial Thromboplastin Ratio 1.0 Laboratory results reviewed by me. Medications Administered Medications (Trade) Dose Ordered Sig/Bladimir Route Start Time Stop Time Status Last Admin Dose Admin Acetaminophen (Tylenol Tab) 1,000 mg NOW STAT PO 04/11/18 17:37 04/11/18 17:40 DC 04/11/18 18:26 1,000 MG ECG Per My Interpretation Indication: other (hypertension) Rate (beats per minute): 81 Rhythm: normal sinus Findings: 1st degree AV block, RBBB, other (poor R-wave progression. no PVCs.) ED Course 1729: The patient was evaluated in room C6. A complete history and physical exam was performed. 1736: Ordered Tylenol Tab 1000 mg PO. 1902: Reevaluated the patient. He missed his nighttime blood pressure medication dose by an hour, and was offered it in the ED but said he will will take it when home. Discussed results and discharge instructions with the patient and his daughter: they verbalized understanding and agreement. The patient is ready for discharge. Medical Decision Differential diagnoses include: uncontrolled blood pressure, missed medication dosing, electrolyte imbalance, renal failure, anemia, cardiac ischemia, stroke, anxiety. There is no leukocytosis or concerning anemia. Renal panel testing shows some mild renal insufficiency but this is baseline, no significant electrolyte abnormality. No hepatitis or coagulopathy. The patient appeared to be in a euthyroid state. Urinalysis did not show infection. Brain CT shows no acute bleed or mass-effect. EKG shows a sinus rhythm with a first-degree AV block and a right bundle branch block, no acute ischemia. Cardiac enzyme testing 1 is not consistent with acute cardiac injury. Chest x-ray shows some chronic findings, no pneumonia, pneumothorax or CHF. On exam, the patient was not febrile or toxic, there were no focal neurologic deficits. He had no complaints other than feeling a little bit worried. Patient received a dose of oral Tylenol for a vague headache that he complained of after he had been here a short time. He has done well. The patient's daughter has arrived. She states that he is at his mental baseline. His blood pressure is somewhat high but not critical. He is going to be discharged to take his meds when he gets home--he is due for his nighttime blood pressure medication. He was reassured by his workup. He will follow with his doctors office and have his blood pressure rechecked later this week. No medication adjustments were felt needed at this time. Medication Reconcilliation Current Medication List: was personally reviewed by me Blood Pressure Screening Patient's blood pressure: Elevated blood pressure Blood pressure disposition: Referred to PCP Impression Primary Impression: HTN (hypertension) Scribe Attestation The scribe's documentation has been prepared under my direction and personally reviewed by me in its entirety. I confirm that the note above accurately reflects all work, treatment, procedures, and medical decision making performed by me. Departure Information Dispostion Home / Self-Care Referrals Claudy Jung D.O. (PCP) Forms HOME CARE DOCUMENTATION FORM, IMPORTANT VISIT INFORMATION Patient Instructions [facility] Additional Instructions care as before take your regular meds when you get home follow with marychuy qui for a recheck later this week return if worsening lab testing and imaging today was all ok Problem Qualifiers Primary Impression: HTN (hypertension) Hypertension type: essential hypertension Qualified Codes: I10 - Essential ( primary) hypertension
--- NOTE | 2018-04-11 17:54 | DIAGNOSTIC IMAGING REPORT ---
CHEST ONE VIEW PORTABLE CLINICAL HISTORY: EVALUATE ALTERED MENTAL STATUS/WEAKNESS COMPARISON STUDY: Chest radiograph January 01, 2018. FINDINGS: Elevation of the left hemidiaphragm is unchanged. Left basilar opacity suggests atelectasis. There is no consolidation to suggest pneumonia. There is no evidence for pulmonary edema. Cardiomegaly is unchanged. The appearance of the chest is unchanged. IMPRESSION: No acute cardiopulmonary findings. No change in appearance of the chest. Stable cardiomegaly. Electronically signed by: Roland Albarran M.D. 04/11/2018 5:53 PM Dictated Date/Time: 04/11/2018 5:52 PM
[2018-04-11 18:23] LABS: BASO % 0.3 %; BASO ABS # 0.02 K/uL (0-0.2); EOS % 3.2 %; HEMOGLOBIN 14.5 g/dL (14.0-18.0); IG# 0.01 K/uL (0.00-0.02); LYMPH % 22.3 %; LYMPH ABS # 1.41 K/uL (1.2-3.4); MEAN CORPUSCULAR HEMOGLOBIN 30.3 pg (25-34); MEAN CORPUSCULAR HGB CONC 33.7 g/dl (32-36); MEAN PLATELET VOLUME 10.3 fL (7.4-10.4); MONO % 7.1 %; MONO ABS # 0.45 K/uL (0.11-0.59); NEUT % 66.9 %; NEUT ABS # 4.23 K/uL (1.4-6.5); PLATELET COUNT 184 K/uL (130-400); RED CELL DISTRIBUTION WIDTH CV 13.7 % (11.5-14.5); WHITE BLOOD COUNT 6.32 K/uL (4.8-10.8)
--- NOTE | 2018-04-11 18:25 | DIAGNOSTIC IMAGING REPORT ---
CT HEAD WITHOUT CONTRAST (CT) CLINICAL HISTORY: Acute change in mental status COMPARISON STUDY: January 01, 2018 TECHNIQUE: Axial CT of the brain is performed from the vertex to the skull base. IV contrast was not administered for this examination. A dose lowering technique was utilized adhering to the principles of ALARA. CT DOSE: 884.08 mGy.cm FINDINGS: No intra or extra-axial mass lesions are visualized. There is no CT evidence of acute cortical infarction. There is no evidence of midline shift. There is no acute hemorrhage. No calvarial fractures are visualized. There are moderate white matter hypodensities likely on a small vessel basis. There is mild ventricular prominence of finding which is felt to be secondary to volume loss. This remain stable. There is no evidence of acute sinusitis IMPRESSION: No acute intracranial findings Electronically signed by: Maykel Pickering M.D. 04/11/2018 6:23 PM Dictated Date/Time: 04/11/2018 6:22 PM
[2018-04-11 18:40] LABS: BLOOD UREA NITROGEN 25 mg/dl (7-18); CREATININE 1.55 mg/dl (0.60-1.40); GLUCOSE 109 mg/dl (70-99)
[2018-04-11 18:41] LABS: ALBUMIN 3.1 gm/dl (3.4-5.0); ALKALINE PHOSPHATASE 98 U/L (45-117); ALT/SGPT 22 U/L (12-78); AST/SGOT 13 U/L (15-37); CALCIUM 8.7 mg/dl (8.5-10.1); CARBON DIOXIDE 27 mmol/L (21-32); POTASSIUM 4.1 mmol/L (3.5-5.1); SODIUM 137 mmol/L (136-145)
[2018-04-11] MEDS ORDERED: LORA-741 PO (18:52)
[2018-04-11] MEDS ORDERED: FURO-85 PO (18:52)
[2018-04-11] MEDS ORDERED: QUET5TAB PO (18:52)
[2018-04-11] MEDS ORDERED: DONE5TAB14 PO (18:53)
[2018-04-11] MEDS ORDERED: NMN5 PO (18:53)
[2018-04-11 19:02] LABS: PTT PATIENT 26.1 SECONDS (21.0-31.0)
[2018-04-11 19:20] VITALS: BP 134/100; PULSE 82; O2SAT 97
== END 2018-04-11 19:21 | disposition home or self-care (01) ==
LOC: EDBD 17:24 → C.EDC 17:25
DX: I10 Essential (primary) hypertension (principal); N17.9 Acute kidney failure, unspecified; F41.9 Anxiety disorder, unspecified; N40.0 Benign prostatic hyperplasia without lower urinary tract symptoms; J44.9 Chronic obstructive pulmonary disease, unspecified; E78.5 Hyperlipidemia, unspecified; Z86.711 Personal history of pulmonary embolism; Z79.82 Long term (current) use of aspirin; Z79.899 Other long term (current) drug therapy; Z88.0 Allergy status to penicillin; Z88.5 Allergy status to narcotic agent; Z91.040 Latex allergy status; Z88.6 Allergy status to analgesic agent

== ENCOUNTER 2019-03-09 12:43 | Inpatient (IN) ==
--- OUTSIDE RECORDS SUMMARY | 2019-03-09 12:47 | External Medical Summary | Continuity of Care Document ---
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) Methicillin susceptible Staphylococcus aureus infection (041 .11) (A49.01) Allergies and Adverse Reactions Codeine Derivatives (Allergy) Penicillins (Allergy) propoxyphene (Allergy) Medications Zyloprim 100 MG Oral Tablet Refills: 0 Advair Diskus 250-50 MCG/DOSE Inhalation Aerosol Powder [place] th Activated Refills: 0 Ventolin HFA AERS Refills: 0 Potassium Chloride ER 20 MEQ Oral Tablet Extended Release Refills: 0 Tylenol 500 MG CAPS Refills: 0 Jantoven 4 MG Oral Tablet; Take 12mg on Tuesday, and 8 mg al l other days Refills: 0 Vitamin D 2000 UNIT Oral Capsule Refills: 0 Spiriva HandiHaler 18 MCG Inhalation Capsule Refills: 0 Flomax 0.4 MG Oral Capsule Refills: 0 Zantac 300 MG TABS Refills: 0 Furosemide 40 MG Oral Tablet Refills: 0 Lexapro 10 MG Oral Tablet Refills: 0 Metoprolol Tartrate 50 MG Oral Tablet Refills: 0 Omeprazole 40 MG Oral Capsule Delayed Release Refills: 0 Oxygen Refills: 0 Atrovent 0.02 % SOLN Refills: 0 Procedures History of Complete Colonoscopy Status: Completed History of Hernia Repair Status: Complet ed History of Total Knee Replacement Status : Completed History of Appendectomy Status: Complete d History of Inferior Vena Cava Filter Placement W/ Fluorosc Status: Completed Angiogr Guidance History of Tonsillectomy Status: Complet ed Immunizations Immunizations not documented Social History - Smoking Status Never smoker Plan of Treatment Planned Observations Planned Goals not documented Results No Known Results Results not documented
--- NOTE | 2019-03-09 13:55 | XRay Report ---
SINGLE VIEW CHEST CLINICAL HISTORY: Generalized weakness. FINDINGS: An AP, portable, upright chest radiograph is compared to study dated 04/11/2018 and correlat ed with chest CT dated 01/10/2016. The examination is degraded by portable technique, large body habit us, and apical lordotic positioning. The heart is enlarged and there is atherosclerotic calcificati on of the thoracic aorta. The pulmonary vasculature is noncongested. There is chronic elevation of le ft hemidiaphragm and bibasilar scarring/atelectasis. No airspace consolidation or large pleural effus ion is identified. No pneumothorax is seen. The skeletal structures are osteopenic. The bony thorax i s grossly intact. Degenerative change is noted in the shoulders. IMPRESSION: Cardiomegaly with no acute cardiopulmonary abnormality. Electronically signed by: Kunal Olguin M.D. 03/09/2019 1:53 PM
--- NOTE | 2019-03-09 13:55 | XRay Report ---
XR knee LT 2V routine CLINICAL HISTORY: swelling, pain pain. Edema. COMPARISON: 06/11/2016 DISCUSSION: Total left knee arthroplasty in good position. Good contact between the prosthetic con Bone. Small joint effusion. Mild prepatellar and prefemoral soft tissue edema. IMPRESSION: 1. Small joint effusion with mild prepatellar/prefemoral soft tissue edema. 2. Otherwise negative study post total left knee arthroplasty. The above report was generated using voice recognition software. It may contain grammatical, syntax or spelling errors. Electronically signed by: Hari Martinez M.D. 03/09/2019 1:54 PM
[2019-03-09 13:59] LABS: Basophils # (auto) 0.02 K/uL (0-0.2); Basophils % (auto) 0.2 %; Hematocrit (blood only) 41.3 % (42-52); Hemoglobin 14.1 g/dL (14.0-18.0); Immature Granulocytes # (auto) 0.05 K/uL (0.00-0.02); Immature Granulocytes % (auto) 0.5 %; Lymphocytes % (auto) 10.2 %; Mean Corpuscular Hgb Conc 34.1 g/dL (32-36); Mean Corpuscular Volume 90.6 fL (80-100); Mean Platelet Volume 9.9 fL (7.4-10.4); Monocytes # (auto) 1.29 K/uL (0.11-0.59); Monocytes % (auto) 13.1 %; Neutrophils # (auto) 7.39 K/uL (1.4-6.5); Platelet Count 171 K/uL (130-400); RDW Coefficient of Variation 13.7 % (11.5-14.5); RDW Standard Deviation 45.3 fL (36.4-46.3); Red Blood Count 4.56 M/uL (4.7-6.1); White Blood Count 9.85 K/uL (4.8-10.8)
[2019-03-09 14:11] LABS: Partial Thromboplastin Ratio 1.1; Partial Thromboplastin Time 30.3 Seconds (21.0-31.0); Prothrombin Time 10.4 Seconds (9.0-12.0)
[2019-03-09 14:20] LABS: Alanine Aminotransferase 44 U/L (12-78); Albumin Level 2.8 gm/dl (3.4-5.0); Aspartate Aminotransferase 23 U/L (15-37); BUN Creatinine Ratio 13.9 (10-20); Blood Urea Nitrogen 25 mg/dl (7-18); Calcium 9.4 mg/dl (8.5-10.1); Carbon Dioxide 31 mmol/L (21-32); Chloride 104 mmol/L (98-107); Creatinine Clr Calc Pharmacy 38.3 ml/min; Est GFR (African American) 38.6; Est GFR (Non-African American) 33.3; Glucose 115 mg/dl (70-99); Magnesium 2.1 mg/dl (1.8-2.4); Potassium 4.1 mmol/L (3.5-5.1); Sodium 139 mmol/L (136-145)
[2019-03-09 14:31] LABS: Albumin Globulin Ratio 0.6 (0.9-2); Alkaline Phosphatase 145 U/L (45-117); Bilirubin,Total 0.5 mg/dl (0.2-1); Globulin 4.3 gm/dl (2.5-4.0); Total Protein 7.1 gm/dl (6.4-8.2); Troponin I < 0.015 ng/ml (0-0.045)
--- NOTE | 2019-03-09 14:37 | Ultrasound Report ---
ULTRASOUND LEFT LOWER EXTREMITY VENOUS CLINICAL HISTORY: Left leg swelling. COMPARISON STUDY: Bilateral lower extremity venous ultrasound dated 06/13/2016. TECHNIQUE: Real-time, grayscale, and color Doppler sonography of the deep veins of the left lower ext remity was performed from the inguinal crease to the calf. Compression and augmentation were utilized . FINDINGS: There is no sonographic evidence of deep venous thrombosis identified in the left lower ext remity. The common femoral, superficial femoral, and popliteal veins are patent and normally compress ible. The greater saphenous vein and the profunda femoris vein at the junction with the common femora l vein are clear. The visualized calf veins are patent. IMPRESSION: There is no sonographic evidence of deep venous thrombosis identified in the left lower e xtremity. Electronically signed by: Kunal Olguin M.D. 03/09/2019 2:36 PM
[2019-03-09] MEDS ORDERED: ALBUT/IPRATROP 3MG/0.5MG NEB 3 ML VIAL NEB STA (14:51)
--- NOTE | 2019-03-09 16:52 | Emergency Department Note ---
Entered by Teodoro Altman acting as a scribe for History of Present Illness General Chief complaint: Knee Injury/Pain Stated complaint: left knee pain Time Seen by Provider: 03/09/19 12:59 Source: patient and family (daughter) Mode of arrival: EMS Limitations: altered mental status (Alzheimer's ) History of Present Illness Onset (ago): day(s) 3 Location: lower extremity (left knee) Pain Consistency: + constant Maximum Pain Intensity: 8 Quality: + other (left knee pain) Associated symptoms: + other (+left knee swelling, +left knee warmth); no fever/chills and no shortness of breath The patient is an 88 year old male who presents to the Emergency Room with complaints of constant left knee pain that began 3 days ago, per the patient's daughter. The daughter of the patient states the patient has Alzheimer's. The daughter also notes significant swelling and warmth in the patient's left knee. The daughter states that the patient is typically ambulatory but the leg pain will not let the patient stand up. The daughter of the patient reports that the left knee is artificial and than an infection of the same knee occurred following knee replacement surgery. The daughter also notes that the patient gained 50 lbs over the past year and that the patient is under care 07/03. The patient denies shortness of breath or fever symptoms. The daughter of the patient states that he uses oxygen occasionally at night when the patient needs it. The daughter also notes that the patient sees an design engineering specialist at [facility] every 3 months. Home Medications Home Medications Medication Instructions Recorded Confirmed Type Lactobacillus acidoph-L.bulgar 1 tab PO BID 03/09/19 03/09/19 History [Lactinex] acetaminophen [Tylenol Extra 500 mg PO Q6H PRN 03/09/19 03/09/19 History Strength] albuterol sulfate 2 puff INHALATION Q6H PRN 03/09/19 03/09/19 History allopurinol 200 mg PO QAM 03/09/19 03/09/19 History amlodipine 2.5 mg PO QAM 03/09/19 03/09/19 History aspirin 81 mg PO QAM 03/09/19 03/09/19 History cholecalciferol (vitamin D3) 2,000 unit PO HS 03/09/19 03/09/19 History [Vitamin D3] diclofenac sodium 2 g TOPICAL QID 03/09/19 03/09/19 History donepezil 5 mg PO HS 03/09/19 03/09/19 History fluticasone furoate-vilanterol 1 inh INHALATION QAM 03/09/19 03/09/19 History [Breo Ellipta] furosemide 20 mg PO 3XWK 03/09/19 03/09/19 History ipratropium-albuterol 3 ml INHALATION TID PRN 03/09/19 03/09/19 History lorazepam 0.25 mg PO QAM 03/09/19 03/09/19 History lorazepam 0.5 mg PO HS 03/09/19 03/09/19 History memantine 10 mg PO QAM 03/09/19 03/09/19 History metoprolol succinate 50 mg PO BID 03/09/19 03/09/19 History multivitamin 1 tab PO QAM 03/09/19 03/09/19 History nystatin 1 applic TOPICAL BID 03/09/19 03/09/19 History nystatin 1 applic TOPICAL TID 03/09/19 03/09/19 History potassium chloride 20 meq PO 3XWK 03/09/19 03/09/19 History quetiapine 25 mg PO HS 03/09/19 03/09/19 History quetiapine 50 mg PO HS 03/09/19 03/09/19 History ranitidine HCl 300 mg PO HS 03/09/19 03/09/19 History tamsulosin 0.4 mg PO DAILY 03/09/19 03/09/19 History tiotropium bromide [Spiriva with 18 mcg INHALATION QAM 03/09/19 03/09/19 History HandiHaler] Allergies Allergy/AdvReac Type Severity Reaction Status Date / Time Penicillins Allergy Severe ANAPHYLAXIS Verified 03/09/19 14:24 codeine Allergy Unknown UNKNOWN Verified 03/09/19 14:24 latex Allergy Unknown unk Verified 03/09/19 14:24 propoxyphene Allergy Unknown SHORTNESS Verified 03/09/19 14:24 OF BREATH Past Med/Surg History Medical History Mood disorder (Chronic) Nocturnal hypoxemia (Chronic) CKD (chronic kidney disease), stage III (Chronic) AD (Alzheimer's disease) (Chronic) History of gout (Chronic) Venous insufficiency (Chronic) History of DVT (deep vein thrombosis) (Chronic) History of pulmonary embolism (Chronic) Pulmonary emboli (Chronic) "After flying to [place]; s/p IVC filter " On 10/23/15 21:41 Trisha Winston wrote "After flying to [place], on coumadin s/p IVC filter " HLD (hyperlipidemia) (Chronic) HTN (hypertension) (Chronic) COPD (chronic obstructive pulmonary disease) (Chronic) Gout (Chronic) BPH (benign prostatic hyperplasia) (Chronic) Current use of supervisor intermediates anticoagulation (Chronic) Anxiety (Chronic) Surgical History History of left knee replacement (Chronic) H/O total knee replacement (Chronic) H/O hernia repair (Chronic) H/O colonoscopy (Chronic) "Multiple diverticulum " S/P tonsillectomy (Chronic) S/P appendectomy (Chronic) S/P IVC filter (Chronic) Family History Other No significant family history Social History Preferred Language: Uzbek Communication Ability: Effective Hearing Ability: Hard of Hearing Front Edger Required: No Current Living Situation: Family Current Living Situation Comment: apartment 07/03 care Other Information That Helps Us Care for You: No Feels Safe at Home: Yes Safety Concerns: Feels Safe At This Time Smoking Status: Never smoker Hx Alcohol Use: No Hx Substance Use: No Review of Systems See HPI for pertinent positives & negatives. and A total of 10 systems reviewed and were otherwise negative Physical Exam Vital Signs Vital Signs - 24 hr 03/09/19 12:52 03/09/19 12:53 03/09/19 15:11 Temperature 37.4 C Temperature Source Oral Sepsis Recent Fever Within 48 Hours No Sepsis New/Unexplained Change in Mental Status No Sepsis Action Taken by Nursing No Action Required Pulse Rate 108 H Pulse Rate [Apical] 105 H Pulse Rate [Right Finger] 112 H Pulse Rhythm [Apical] Regular Pulse Strength [Apical] Respiratory Rate 22 20 18 Respiratory Effort / Characteristics Non-Labored Non-Labored Spontaneous Respiratory Depth Normal Normal Respiratory Pattern Regular Blood Pressure 139/101 H Blood Pressure [Left Arm] 139/101 H Blood Pressure Mean 113 Blood Pressure Mean [Left Arm] 113 Blood Pressure Position [Left Arm] Pulse Oximetry 95 96 96 Oxygen Delivery Method Room Air Nasal Cannula Nasal Cannula Oxygen Flow Rate 2 2 03/09/19 15:16 03/09/19 16:31 Temperature Temperature Source Sepsis Recent Fever Within 48 Hours Sepsis New/Unexplained Change in Mental Status Sepsis Action Taken by Nursing Pulse Rate 110 H Pulse Rate [Apical] 110 H 115 H Pulse Rate [Right Finger] Pulse Rhythm [Apical] Regular Pulse Strength [Apical] Normal Respiratory Rate 24 20 Respiratory Effort / Characteristics Respiratory Depth Normal Respiratory Pattern Blood Pressure Blood Pressure [Left Arm] 139/91 136/94 Blood Pressure Mean Blood Pressure Mean [Left Arm] 107 108 Blood Pressure Position [Left Arm] Lying Pulse Oximetry 96 94 Oxygen Delivery Method Nasal Cannula Nasal Cannula Oxygen Flow Rate 2 2 GENERAL: Patient is in no acute distress. HEENT: No acute trauma, normocephalic atraumatic, mucous membranes moist, no nasal congestion, no scleral icterus. NECK: No stridor, no adenopathy, no meningismus, trachea is midline. LUNGS: Decreased breath sounds bilaterally, scattered wheezes, no respiratory distress, equal breath sounds. HEART: Can not really hear tones secondary to body habitus and lungs. ABDOMEN: Soft, nontender, bowel sounds positive, no hernias, no peritonitis. EXTREMITIES: Bilateral pedal edema that is worse on left extremity. Left knee has a large joint effusion with some subtle warmth. No erythema. No real pain to move left knee joint. NEUROLOGIC: Oriented x 3, no acute motor or sensory deficits, no focal weakness. SKIN: No rash, no jaundice, no diaphoresis. Course 1307: Past medical records reviewed. The patient was evaluated in room C6. A complete history and physical exam was performed. 1439: I discussed the case with Dr. [facility]. Dr. Ugalde will drain the artificial knee. 1448: I updated the patient on his case. 1632: I discussed the case with Dr. [facility]. Dr. Ugalde will further evaluate the patient. Consultations Consultation #1: I discussed the case with Dr. [facility]. Dr. Ugalde will drain the artificial knee. Time: 14:39 Consultation #2: I discussed the case with Dr. [facility]. Dr. Ugalde will further evaluate the patient. Time: 16:32 Administered Medications Furosemide (Lasix) 20 mg PO MoWeFr@0900 NARDA Stop: 04/08/19 17:37 Last Admin: 03/09/19 19:34 Dose: 20 mg Documented by: [id number] Vancomycin HCl 2,750 mg/ (Sodium Chloride) 555 mls @ 200 mls/hr IV NOW ONE; Protocol Stop: 03/09/19 21:16 Last Admin: 03/09/19 19:35 Dose: 200 mls/hr Documented by: [id number] Potassium Chloride (Klor-Con M10) 20 meq PO MoWeFr@0900 NARDA Stop: 04/08/19 17:37 Last Admin: 03/09/19 19:34 Dose: 20 meq Documented by: [id number] Rifampin (Rifampin) 600 mg PO QAM [facility] Stop: 04/20/19 17:37 Last Admin: 03/09/19 19:35 Dose: 600 mg Documented by: [id number] Discontinued Medications Albuterol (Duoneb) 3 ml NEB NOW STA Stop: 03/09/19 14:52 Last Admin: 03/09/19 15:08 Dose: 3 ml Documented by: [id number] Medical Decision Making Differential Diagnosis Differential diagnoses include hemarthrosis, left knee effusion, septic joint, fluid overload edema, renal failure, electrolyte imbalance, cellulitis, deep vein thrombosis. Medical Records Attestation: I reviewed the patient's medical records. Home Medications Current Medication List: was personally reviewed by me Laboratory Data Attestation: I reviewed the patient's lab results. Result diagrams: 03/09/19 13:49 03/09/19 13:15 Lab Results 03/09/19 03/09/19 03/09/19 Range/Units 13:15 13:15 13:49 WBC 9.85 (4.8-10.8) K/uL RBC 4.56 L (4.7-6.1) M/uL Hgb 14.1 (14.0-18.0) g/dL Hct 41.3 L (42-52) % MCV 90.6 (80-100) fL MCH 30.9 (25-34) pg MCHC 34.1 (32-36) g/dL RDW Std Deviation 45.3 (36.4-46.3) fL RDW Coeff of Robbie 13.7 (11.5-14.5) % Plt Count 171 (130-400) K/uL MPV 9.9 (7.4-10.4) fL Immature Gran % (Auto) 0.5 % Neut % (Auto) 75.0 % Lymph % (Auto) 10.2 % [place]ati % (Auto) 13.1 % Eos % (Auto) 1.0 % Baso % (Auto) 0.2 % Immature Gran # (Auto) 0.05 H (0.00-0.02) K/uL Neut # (Auto) 7.39 H (1.4-6.5) K/uL Lymph # (Auto) 1.00 L (1.2-3.4) K/uL [place] # (Auto) 1.29 H (0.11-0.59) K/uL Eos # (Auto) 0.10 (0-0.5) K/uL Baso # (Auto) 0.02 (0-0.2) K/uL ESR (0-14) mm/hr PT 10.4 (9.0-12.0) Seconds INR 1.0 (0.9-1.1) APTT 30.3 (21.0-31.0) Seconds PTT Ratio 1.1 Sodium 139 (136-145) mmol/L Potassium 4.1 (3.5-5.1) mmol/L Chloride 104 (98-107) mmol/L Carbon Dioxide 31 (21-32) mmol/L Anion Gap 4.0 (3-11) BUN 25 H (7-18) mg/dl Creatinine 1.78 H (0.6-1.4) mg/dl Est Cr Clr Drug Dosing 38.3 ml/min Est GFR ( Amer) 38.6 Est GFR (Non-Af Amer) 33.3 BUN/Creatinine Ratio 13.9 (10-20) Glucose 115 H (70-99) mg/dl Calcium 9.4 (8.5-10.1) mg/dl Magnesium 2.1 (1.8-2.4) mg/dl Total Bilirubin 0.5 (0.2-1) mg/dl AST 23 (15-37) U/L ALT 44 (12-78) U/L Alkaline Phosphatase 145 H (45-117) U/L Troponin I < 0.015 (0-0.045) ng/ml C-Reactive Protein 23.40 H (0-0.29) mg/dl Total Protein 7.1 (6.4-8.2) gm/dl Albumin 2.8 L (3.4-5.0) gm/dl Globulin 4.3 H (2.5-4.0) gm/dl Albumin/Globulin Ratio 0.6 L (0.9-2) TSH 1.410 (0.300-4.500) uIu/ml Synovial Source Synovial Color Synovial Appearance Synovial WBC (0-200) /uL Synovial RBC /uL Synovial Polynuclear % % Synovial Mononuclear % % Synovial Crystals 03/09/19 03/09/19 03/09/19 Range/Units 13:49 16:00 16:00 WBC (4.8-10.8) K/uL RBC (4.7-6.1) M/uL Hgb (14.0-18.0) g/dL Hct (42-52) % MCV (80-100) fL MCH (25-34) pg MCHC (32-36) g/dL RDW Std Deviation (36.4-46.3) fL RDW Coeff of Robbie (11.5-14.5) % Plt Count (130-400) K/uL MPV (7.4-10.4) fL Immature Gran % (Auto) % Neut % (Auto) % Lymph % (Auto) % [place] % (Auto) % Eos % (Auto) % Baso % (Auto) % Immature Gran # (Auto) (0.00-0.02) K/uL Neut # (Auto) (1.4-6.5) K/uL Lymph # (Auto) (1.2-3.4) K/uL [place] # (Auto) (0.11-0.59) K/uL Eos # (Auto) (0-0.5) K/uL Baso # (Auto) (0-0.2) K/uL ESR 83 H (0-14) mm/hr PT (9.0-12.0) Seconds INR (0.9-1.1) APTT (21.0-31.0) Seconds PTT Ratio Sodium (136-145) mmol/L Potassium (3.5-5.1) mmol/L Chloride (98-107) mmol/L Carbon Dioxide (21-32) mmol/L Anion Gap (3-11) BUN (7-18) mg/dl Creatinine (0.6-1.4) mg/dl Est Cr Clr Drug Dosing ml/min Est GFR ( Amer) Est GFR (Non-Af Amer) BUN/Creatinine Ratio (10-20) Glucose (70-99) mg/dl Calcium (8.5-10.1) mg/dl Magnesium (1.8-2.4) mg/dl Total Bilirubin (0.2-1) mg/dl AST (15-37) U/L ALT (12-78) U/L Alkaline Phosphatase (45-117) U/L Troponin I (0-0.045) ng/ml C-Reactive Protein (0-0.29) mg/dl Total Protein (6.4-8.2) gm/dl Albumin (3.4-5.0) gm/dl Globulin (2.5-4.0) gm/dl Albumin/Globulin Ratio (0.9-2) TSH (0.300-4.500) uIu/ml Synovial Source KNEE Synovial Color STRAW Synovial Appearance HAZY Synovial WBC 84272 H (0-200) /uL Synovial RBC 74747 /uL Synovial Polynuclear % 91.7 % Synovial Mononuclear % 8.3 % Synovial Crystals Imaging Data Radiologist's Impression: Radiology results as stated below per my review and the radiologist's interpretation: SINGLE VIEW CHEST CLINICAL HISTORY: Generalized weakness. FINDINGS: An AP, portable, upright chest radiograph is compared to study dated 04/11/2018 and correlated with chest CT dated 01/10/2016. The examination is degraded by portable technique, large body habitus, and apical lordotic positioning. The heart is enlarged and there is atherosclerotic calcification of the thoracic aorta. The pulmonary vasculature is noncongested. There is chronic elevation of left hemidiaphragm and bibasilar scarring/atelectasis. No airspace consolidation or large pleural effusion is identified. No pneumothorax is seen. The skeletal structures are osteopenic. The bony thorax is grossly intact. Degenerative change is noted in the shoulders. IMPRESSION: Cardiomegaly with no acute cardiopulmonary abnormality. ULTRASOUND LEFT LOWER EXTREMITY VENOUS CLINICAL HISTORY: Left leg swelling. COMPARISON STUDY: Bilateral lower extremity venous ultrasound dated 06/13/2016. TECHNIQUE: Real-time, grayscale, and color Doppler sonography of the deep veins of the left lower extremity was performed from the inguinal crease to the calf. Compression and augmentation were utilized. FINDINGS: There is no sonographic evidence of deep venous thrombosis identified in the left lower extremity. The common femoral, superficial femoral, and popliteal veins are patent and normally compressible. The greater saphenous vein and the profunda femoris vein at the junction with the common femoral vein are clear. The visualized calf veins are patent. IMPRESSION: There is no sonographic evidence of deep venous thrombosis identified in the left lower extremity. Electronically signed by: Kunal Olguin M.D. 03/09/2019 2:36 PM Electronically signed by: Kunal Olguin M.D. 03/09/2019 1:53 PM [place], [place] [phone] XRay Report Patient: LURDES ROSARIOAdmit Date: 03/09/19 MR#: [id number]: [address] Acct ID:[id number]: Date: 1930ty Zip: [facility] [place] [id number] Age: 88Location: ED Sex: M Room/Bed: Att Phy: Diagnosis: left knee pain Karley Phy: Claudy Jung, DOService Date: 03/09/19 Fam Phy: Interpreting Phy: Hari Martinez MD Admit Phy: Ordering Phy: Kunal Min M.D. cc: ~ XR knee LT 2V routine CLINICAL HISTORY: swelling, pain pain. Edema. COMPARISON: 06/11/2016 DISCUSSION: Total left knee arthroplasty in good position. Good contact between the prosthetic con Bone. Small joint effusion. Mild prepatellar and prefemoral soft tissue edema. IMPRESSION: 1. Small joint effusion with mild prepatellar/prefemoral soft tissue edema. 2. Otherwise negative study post total left knee arthroplasty. The above report was generated using voice recognition software. It may contain grammatical, syntax or spelling errors. Electronically signed by: Hari Martinez M.D. 03/09/2019 1:54 PM ECG Data Attestation: I personally reviewed and interpreted this ECG as follows: Indication: altered mental status Rate (beats per minute): 106 Rhythm: sinus tachycardia Findings: + other (non-specific ST change) and + RBBB; no ST elevation MDM Narrative There is no leukocytosis or concerning anemia. No coagulopathy. Creatinine is somewhat elevated at 1.7, this seems baseline for the patient. Alk phos slightly elevated, no other liver enzyme elevation. The patient appears to be in a euthyroid state. EKG shows a sinus rhythm, no acute ischemia. Cardiac enzyme testing x1 is not consistent with acute cardiac injury. Chest film does not show CHF or pneumonia. Left knee film shows a joint effusion with a prosthetic joint, no fracture seen. Left leg ultrasound does not show evidence for DVT. On exam, the patient's left knee was somewhat warm and swollen, no erythema, no significant pain with joint movement. No evidence for left lower extremity neurovascular compromise. The patient was given a DuoNeb because of his history of COPD. He did not require anything for pain. I spoke with orthopedics on-call. They saw the patient here in the ED and did drain the knee. Pus-like fluid was noted and there is of course concern for a septic joint. The patient has had bacteria in this joint before. Patient is going to be hospitalized. Orthopedic surgical intervention may be required depending on the patient's course here in the hospital. Patient is aware of his findings and our concerns. Case management has been involved. Impression & Plan Effusion of left knee, Knee pain, left, Weakness, Presence of total left knee joint prosthesis Discharge Plan Visit Data *Final* Discharge Date/Time: 03/09/19 17:10 Chief Complaint: Knee Injury/Pain Stated Complaint: left knee pain ED Provider: Kunal Min Discharge Problem: Effusion of left knee, Knee pain, left, Weakness, Presence of total left knee joint prosthesis Patient Disposition: Admitted As Inpatient Discharge Instructions Interventions: ED Discharge Assessment Last Done: 03/09/19 17:10 Discharge Problem: Knee pain, left Qualifiers: Chronicity: chronic Qualified Code(s): M25.562 - Pain in left knee The scribe's documentation has been prepared under my direction and personally reviewed by me in its entirety. I confirm that the note above accurately reflects all work, treatment, procedures, and medical decision making performed by me.
[2019-03-09 17:00] LABS: Appearance Synovial Fluid HAZY; Color Synovial Fluid STRAW; Polynuclear WBC Synovial 91.7 %; RBC Synovial Fluid (A) 11000 /uL; Source Synovial Fluid KNEE; WBC Synovial Fluid (A) 28317 /uL (0-200)
--- NOTE | 2019-03-09 17:08 | Progress Note ---
DATE: 03/09/2019 The patient is seen in conjunction with Yasmine Prather. For further details refer to her dictation. She and I saw and evaluated together and I am in agreement with the plan. The patient has a prior history of a left total knee replacement which got infected about 2 years ago. This was washed out in [place] by Dr. Mota. He is 88 years old and reports progressive ambulatory dysfunction over the past several days accompanied by increased left leg swelling and left knee pain. His examination demonstrates swelling of the knee and limited range of motion. The knee has been aspirated showing 45 mL of cloudy yellow fluid. This has been sent for Gram stain, aerobic and anaerobic culture, cell count with differential and crystal analysis. He will be made n.p.o. after midnight in the chance that he has an infection. The plan would be to arthroscopically washout the knee. He may need more definitive treatment consisting of an explantation of the knee and that may need to be done at an appropriate joint replacement center. He will be made n.p.o. after midnight. Consult medicine. Mechanical devices for DVT prophylaxis. We will start him on intravenous antibiotics with a pharmacy consultation. [facility].
[2019-03-09] MEDS ORDERED: VANCOMYCIN CONSULT ACTIVE PRN (17:38)
[2019-03-09] MEDS ORDERED: FUROSEMIDE 20 MG TAB PO SCH (17:38)
[2019-03-09] MEDS ORDERED: ALBUT/IPRATROP 3MG/0.5MG NEB 3 ML VIAL INH PRN (17:38)
[2019-03-09] MEDS ORDERED: XOPENEX/ATROVENT 0.63mg/0.5MG NEB COMBO NEB PRN (18:22)
--- NOTE | 2019-03-09 18:29 | Consultation ---
Date of Consultation March 09, 2019 Assessment & Plan (1) Effusion of left knee: H/O L TKA in 2012. Pt presented with edema, pain to left knee with possible infection Ortho on board. Knee aspirated pain management per ortho wound management per ortho DVT prophylaxis per ortho - SCDs Antibiotics per ortho Revised Cardiac Risk Index for pre-operative risk: 6% (2) HTN (hypertension): -Continue metoprolol, amlodipine (3) CKD (chronic kidney disease), stage III: Cr: 1.78. 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 2-5L via NC HS and 2L prn during the day -Continue Breo, Spiriva -Xopenex/atrovent nebs prn (6) History of pulmonary embolism: H/O PE s/p IVC (7) AD (Alzheimer's disease): -Continue memantine, donepezil (8) Mood disorder: -Continue Seroquel, Ativan (9) Gout: -Continue allopurinol (10) BPH (benign prostatic hyperplasia): -Continue flomax DVT Prophylaxis -SCDs per ortho Follows with Dr Jung for routine care Pt was seen and care coordinated with Dr Olivo. See addendum Supervising Physician Co-Signing Physician Notes I saw this patient with the physician reference assistant, I participated in the history, physical, review of systems, and physical exam. I reviewed the medications with the patient and the physician reference assistant and helped reconcile the medications. I helped take a detailed family and social history as well. I formulated the assessment and plan personally with the physician reference assistant and went over it with the patient. ROS-No Headache, No Visual Changes, No Nausea, No Vomiting, No Fever, No Chills, No Neck Pain or Stiffness, No Chest Pain, No Palpitations, No SOB, No HERNANDEZ, No Cough, No Sputum, No Wheezing, No Abdominal Pain, No Diarrhea, No Hematemesis, No Hemoptysis, No Unexpected Weight Loss, No Flank pain, No Melena, No Hematochezia, No Frequency, No Urgency, No Burning, No Hematuria, No Rashes, No Diaphoresis. Appetite is Normal Physical Exam Gen-AAO x 3, NAD, Afebrile, [place] Head-NCAT, EOMI, PERRLA, Anicteric Sclera, No Posterior Pharyngeal Erythema Neck-Supple, No JVD, No Thyromegaly, No Masses, No LAD, No Bruits Lungs-Clear to Auscultation Bilaterally, No Rales, No Rhonchi, No Wheezing, No Crepitus Chest-No S4, +S1, +S2, No S3, No Murmurs, No Rubs, No Gallops, No Ectopy Abdomen-Soft, Bowel Sounds Present, Non Tender, Non Distended, No Hepatomegaly, No Splenomegaly, No Palpable Masses, No Rebound, No Rigidity, No Guarding Musculoskeletal-Full Range of Motion Bilaterally, No CVAT Extremities-No Cyanosis, No Clubbing, LLE Wrapped and Immobilized Nuero-Cranial Nerves II-XII grossly intact, Motor WNL, DTRs WNL, Strength WNL, Non Focal Psych-Normal Mood History of Present Illness Reason for Consultation: Medical management, pre-op evaluation Attending Physician: Denis Ugalde MD History of Present Illness Pt is 88 y/o M with PMH HTN, HLD, COPD, sleep hypoxemia on oxygen, Alzheimer's, mood disorder, BPH, gout, h/o PE s/p IVC filter, venous insufficiency, CKD III, chronic BLE edema, h/o RBBB, h/o TKA in 2012 in [place] seen in medical consultation. Pt with hx left knee pain and edema x 3 days with limited ability to ambulate. Ortho saw pt in ER and left knee was aspirated. Ortho anticipating pt needing OR washout. Currently pt denies complaints. Denies fever/chills, diaphoresis, N/V/D/C, TAPIA, dizziness, syncope, vision changes, neck pain, CP, SOB, orthopnea, palpitations, cough, sore throat, choking, otalgia, rhinorrhea, abdominal pain, paresthesias, increased extremity edema, rashes, urinary symptoms. Hx echo: 2017 EF: 60-65%. echo 2016: EF: 60-65%, grade 1 diastolic dysfunction, moderate LVH, mild aortic sclerosis Allergies Allergy/AdvReac Type Severity Reaction Status Date / Time Penicillins Allergy Severe ANAPHYLAXIS Verified 03/09/19 14:24 codeine Allergy Unknown UNKNOWN Verified 03/09/19 14:24 latex Allergy Unknown unk Verified 03/09/19 14:24 propoxyphene Allergy Unknown SHORTNESS Verified 03/09/19 14:24 OF BREATH Home Medications Home Medications Medication Instructions Recorded Confirmed Type Lactobacillus acidoph-L.bulgar 1 tab PO BID 03/09/19 03/09/19 History [Lactinex] acetaminophen [Tylenol Extra 500 mg PO Q6H PRN 03/09/19 03/09/19 History Strength] albuterol sulfate 2 puff INHALATION Q6H PRN 03/09/19 03/09/19 History allopurinol 200 mg PO QAM 03/09/19 03/09/19 History amlodipine 2.5 mg PO QAM 03/09/19 03/09/19 History aspirin 81 mg PO QAM 03/09/19 03/09/19 History cholecalciferol (vitamin D3) 2,000 unit PO HS 03/09/19 03/09/19 History [Vitamin D3] diclofenac sodium 2 g TOPICAL QID 03/09/19 03/09/19 History donepezil 5 mg PO HS 03/09/19 03/09/19 History fluticasone furoate-vilanterol 1 inh INHALATION QAM 03/09/19 03/09/19 History [Breo Ellipta] furosemide 20 mg PO 3XWK 03/09/19 03/09/19 History ipratropium-albuterol 3 ml INHALATION TID PRN 03/09/19 03/09/19 History lorazepam 0.25 mg PO QAM 03/09/19 03/09/19 History lorazepam 0.5 mg PO HS 03/09/19 03/09/19 History memantine 10 mg PO QAM 03/09/19 03/09/19 History metoprolol succinate 50 mg PO BID 03/09/19 03/09/19 History multivitamin 1 tab PO QAM 03/09/19 03/09/19 History nystatin 1 applic TOPICAL BID 03/09/19 03/09/19 History nystatin 1 applic TOPICAL TID 03/09/19 03/09/19 History potassium chloride 20 meq PO 3XWK 03/09/19 03/09/19 History quetiapine 25 mg PO HS 03/09/19 03/09/19 History quetiapine 50 mg PO HS 03/09/19 03/09/19 History ranitidine HCl 300 mg PO HS 03/09/19 03/09/19 History tamsulosin 0.4 mg PO DAILY 03/09/19 03/09/19 History tiotropium bromide [Spiriva with 18 mcg INHALATION QAM 03/09/19 03/09/19 History HandiHaler] Patient History Medical History Mood disorder (Chronic) Nocturnal hypoxemia (Chronic) CKD (chronic kidney disease), stage III (Chronic) AD (Alzheimer's disease) (Chronic) History of gout (Chronic) Venous insufficiency (Chronic) History of DVT (deep vein thrombosis) (Chronic) History of pulmonary embolism (Chronic) Pulmonary emboli (Chronic) "After flying to [place]; s/p IVC filter " On 10/23/15 21:41 Trisha Winston wrote "After flying to [place], on coumadin s/p IVC filter " HLD (hyperlipidemia) (Chronic) HTN (hypertension) (Chronic) COPD (chronic obstructive pulmonary disease) (Chronic) Gout (Chronic) BPH (benign prostatic hyperplasia) (Chronic) Current use of senior living anticoagulation (Chronic) Anxiety (Chronic) Surgical History History of left knee replacement (Chronic) H/O total knee replacement (Chronic) H/O hernia repair (Chronic) H/O colonoscopy (Chronic) "Multiple diverticulum " S/P tonsillectomy (Chronic) S/P appendectomy (Chronic) S/P IVC filter (Chronic) Family History Other No significant family history Social History Preferred Language: Jamaican Communication Ability: Effective Hearing Ability: Hard of Hearing Radiology Special Procedure Tech Required: No Current Living Situation: Family Current Living Situation Comment: apartment 07/03 care Other Information That Helps Us Care for You: No Feels Safe at Home: Yes Safety Concerns: Feels Safe At This Time Smoking Status: Never smoker Hx Alcohol Use: No Hx Substance Use: No Review of Systems Review of Systems: All systems reviewed & are unremarkable except as noted in HPI & below Physical Exam Physical Exam: General: no acute distress, obese Head: normocephalic, atraumatic Eyes: PERRL, EOM's intact, conjunctiva non-injected, anicteric ENT: normal inspection external ears, nose, mucous membranes moist Neck: supple, trachea midline Lungs: clear, no respiratory distress, no wheezing/rhonchi/rales CV: RRR, no murmur, no JVD, trace pretibial edema Abd: normal BS, soft, non-tender Ext: LLE: dressing and brace in place, distal pulses palpable, RLE: knee without edema, erythema, distal pulses intact Neuro: Alert, oriented to person, no focal deficits noted, normal affect Skin: warm, dry Results & Data Vital Signs (Past 12 Hours) Vital Signs Temp Pulse Pulse Pulse Resp BP BP 03/09/19 17:45 37.1 C 110 H 18 03/09/19 17:41 37.1 C 110 H 18 03/09/19 17:10 117 H 03/09/19 16:31 115 H 20 136/94 03/09/19 15:16 110 H 110 H 24 139/91 03/09/19 15:11 112 H 18 03/09/19 12:53 37.4 C 108 H 20 139/101 H 03/09/19 12:52 105 H 22 139/101 H BP Pulse Ox 03/09/19 17:45 135/89 93 03/09/19 17:41 135/89 93 03/09/19 17:10 03/09/19 16:31 94 03/09/19 15:16 96 03/09/19 15:11 96 03/09/19 12:53 96 03/09/19 12:52 95 Laboratory Results Short CBC 03/09/19 Range/Units 13:49 WBC 9.85 (4.8-10.8) K/uL Hgb 14.1 (14.0-18.0) g/dL Hct 41.3 L (42-52) % Plt Count 171 (130-400) K/uL BMP 03/09/19 13:15 Sodium 139 Potassium 4.1 Chloride 104 Carbon Dioxide 31 BUN 25 H Creatinine 1.78 H Glucose 115 H Calcium 9.4 Cardiac Enzymes 03/09/19 Range/Units 13:15 Troponin I < 0.015 (0-0.045) ng/ml Liver Function 03/09/19 Range/Units 13:15 Total Bilirubin 0.5 (0.2-1) mg/dl AST 23 (15-37) U/L ALT 44 (12-78) U/L Alkaline Phosphatase 145 H (45-117) U/L Albumin 2.8 L (3.4-5.0) gm/dl Diagnostic Findings CXR: IMPRESSION: Cardiomegaly with no acute cardiopulmonary abnormality. LEFT KNEE XRAY: IMPRESSION: 1. Small joint effusion with mild prepatellar/prefemoral soft tissue edema. 2. Otherwise negative study post total left knee arthroplasty. VENOUS DOPPLER: IMPRESSION: There is no sonographic evidence of deep venous thrombosis identified in the left lower extremity. ECG Rate (beats per minute): 106 Rhythm: sinus tachycardia Findings: + RBBB Additional Comments: Read by marine electronics technician: Sinus tachycardia Right bundle branch block Possible Anterolateral infarct , age undetermined Abnormal ECG When compared with ECG of 11-APR-2018 17:27, No significant change was found Confirmed by Harry Gutierrez ([id number]) on 03/09/2019 5:00:26 PM
[2019-03-09] MEDS ORDERED: VANCOMYCIN HCL 2,750 MG in SODIUM CHLORIDE 0.9% 500 ML IV ONE (18:30)
[2019-03-09] MEDS ORDERED: LEVALBUTEROL HCL 0.63 MG/3 ML NEB NEB PRN (18:30)
[2019-03-09] MEDS ORDERED: IPRATROPIUM BROMIDE NEB SOLN 0.02% 2.5 ML VIAL INH PRN (18:30)
[2019-03-09] MEDS: POTASSIUM CHLORIDE 10 MEQ TABCR PO SCH (19:34)
[2019-03-09] MEDS: rifAMPin 300 MG CAPSULE PO SCH (19:35)
[2019-03-09] MEDS ORDERED: QUETIAPINE FUMARATE 25 MG TABLET PO SCH (21:00)
[2019-03-09] MEDS: METOPROLOL SUCC 50MG EXT REL TAB PO SCH (21:02)
[2019-03-09] MEDS: DONEPEZIL HCL 5 MG TAB PO SCH (21:02)
[2019-03-09] MEDS: QUETIAPINE FUMARATE 25 MG TABLET PO SCH (21:02)
[2019-03-09] MEDS: LACTOBACILLUS ACIDOPHILUS 1 GM PACK PO SCH (21:02)
[2019-03-09] MEDS: NYSTATIN POWDER 15GM BTL EXT SCH (21:02)
[2019-03-09] MEDS: LORazepam 0.5 MG TAB PO SCH (21:24)
[2019-03-09] MEDS: CIPROFLOXACIN 500 MG TAB PO SCH (21:24)
[2019-03-10] MEDS: ACETAMINOPHEN 500 MG TAB PO PRN ×2 (00:07→07:57)
[2019-03-10 00:27] LABS: Appearance Urine Clear (Clear); Bacteria Urine Automated Negative (Negative); Bilirubin Urine Negative (Negative); Color Urine Dark Yellow; Glucose Urine UA Negative (Negative); Ketones Urine Negative (Negative); Leukocyte Esterase Urine Negative (Negative); Nitrite Urine Negative (Negative); Protein Urine 1+ (Negative); Urobilinogen Urine Negative (Negative)
[2019-03-10] MEDS: MEMANTINE HCL 10 MG TAB PO SCH (07:59)
[2019-03-10] MEDS: TAMSULOSIN HCL 0.4 MG CAP PO SCH (07:59)
[2019-03-10] MEDS: METOPROLOL SUCC 50MG EXT REL TAB PO SCH ×3 (08:00→20:42)
[2019-03-10] MEDS: AMLODIPINE BESYLATE 5 MG TAB PO SCH (08:01)
[2019-03-10] MEDS: ALLOPURINOL 100 MG TAB PO SCH (08:01)
[2019-03-10 08:46] LABS: Basophils # (auto) 0.01 K/uL (0-0.2); Basophils % (auto) 0.1 %; Eosinophils # (auto) 0.04 K/uL (0-0.5); Eosinophils % (auto) 0.4 %; Hematocrit (blood only) 42.2 % (42-52); Hemoglobin 14.1 g/dL (14.0-18.0); Immature Granulocytes # (auto) 0.07 K/uL (0.00-0.02); Immature Granulocytes % (auto) 0.7 %; Lymphocytes # (auto) 0.53 K/uL (1.2-3.4); Mean Corpuscular Hgb Conc 33.4 g/dL (32-36); Mean Corpuscular Volume 90.6 fL (80-100); Mean Platelet Volume 10.1 fL (7.4-10.4); Monocytes # (auto) 0.95 K/uL (0.11-0.59); Neutrophils # (auto) 8.91 K/uL (1.4-6.5); Neutrophils % (auto) 84.8 %; Platelet Count 193 K/uL (130-400); RDW Coefficient of Variation 13.9 % (11.5-14.5); RDW Standard Deviation 45.7 fL (36.4-46.3); Red Blood Count 4.66 M/uL (4.7-6.1); White Blood Count 10.51 K/uL (4.8-10.8)
[2019-03-10] MEDS ORDERED: ASPIRIN 81 MG ECTAB PO SCH (09:00)
[2019-03-10 09:21] LABS: BUN Creatinine Ratio 14.1 (10-20); Calcium 9.3 mg/dl (8.5-10.1); Creatinine Clr Calc Pharmacy 36.6 ml/min; Est GFR (African American) 37.6; Est GFR (Non-African American) 32.4; Potassium 4.2 mmol/L (3.5-5.1)
[2019-03-10] MEDS: LACTOBACILLUS ACIDOPHILUS 1 GM PACK PO SCH ×2 (09:52→20:42)
[2019-03-10] MEDS: CIPROFLOXACIN 500 MG TAB PO SCH ×2 (09:52→20:42)
[2019-03-10] MEDS: LORazepam 0.5 MG TAB PO SCH ×2 (09:52→20:42)
[2019-03-10] MEDS: rifAMPin 300 MG CAPSULE PO SCH (09:53)
[2019-03-10] MEDS: TIOTROPIUM BROMIDE 5 PUFF/90 MCG INH INH SCH (09:54)
[2019-03-10] MEDS: VANCOMYCIN HCL 1,750 MG in SODIUM CHLORIDE 0.9% 500 ML IV SCH (10:44)
[2019-03-10] MEDS: NYSTATIN POWDER 15GM BTL EXT SCH ×2 (13:24→20:41)
[2019-03-10] MEDS ORDERED: D5W AND NSS 1,000 ML IV SCH (17:00)
--- NOTE | 2019-03-10 17:33 | Progress Note ---
DATE: 03/10/2019 SUBJECTIVE: The patient is resting comfortably in bed. Pain well controlled. He has had a temperature of 38.1. His pulse has been in the low teens to 90s. He is not hypotensive. White count is 10. PRP noted. Mild renal insufficiency. Urinalysis negative for infection. Cell count differential was approximately 25,000 white cells. No crystals. Gram stain showed polys and Gram positive cocci, but there is no growth to date on culture. OBJECTIVE: On exam, his dressing is intact. Immobilizer present. Foot is warm and he can now flex and extend his toes and ankle. 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 PLAN: Findings discussed with the patient and daughter. 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 We are going to recommend an arthroscopic irrigation and debridement to be done tomorrow morning. We will continue antibiotics and consult Infectious Diseases once we get some further culture information back. He is n.p.o. after midnight. Daughter is against going to residential. I do not think that he would qualify for acute care rehab. He does have 24/7 support at home and does get PT at home, so that is an option. I will also contact my joint replacement colleagues at [facility] to discuss this case and see what further treatment they recommend. He may need to be transferred to [facility] or sent down as an outpatient for further evaluation and treatment, which could include explantation. Discussed with daughter that the washout is not going to be curative. He would likely need explantation with antibiotic spacer. The knee is likely chronically infected and I think simply washing it out and doing a poly exchange currently is not going to solve this problem.
--- NOTE | 2019-03-10 17:41 | Hospitalist Progress Note ---
Date of Service March 10, 2019 Assessment & Plan (1) Septic joint of left knee joint: History of left knee replacement surgery years back Present with left knee pain/effusion Status post joint aspiration done by orthopedics: Synovial fluid analysis shows WBC elevated [id number] Suggestive of septic knee joint On IV vancomycin, Cipro for gram-negative coverage Orthopedics following Plan for knee joint washout tomorrow Infectious disease will be consulted (2) Effusion of left knee: H/O L TKA in 2012. Pt presented with edema, pain to left knee with possible infection Ortho on board. Knee aspirated Synovial fluid analysis shows elevated WBC suggestive of septic knee joint Synovial fluid culture ordered report pending Plan for knee joint washout tomorrow Continue empiric broad-spectrum antibiotic Revised Cardiac Risk Index for pre-operative risk: 6% (3) HTN (hypertension): -Continue metoprolol, amlodipine (4) CKD (chronic kidney disease), stage III: Cr: 1.78. 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 2-5L via NC HS and 2L prn during the day -Continue Breo, Spiriva -Xopenex/atrovent nebs prn (7) History of pulmonary embolism: H/O PE s/p IVC Not on any anticoagulation (8) AD (Alzheimer's disease): -Continue memantine, donepezil (9) Mood disorder: -Continue Seroquel, Ativan (10) Gout: -Continue allopurinol (11) BPH (benign prostatic hyperplasia): -Continue flomax DVT Prophylaxis -SCDs per ortho Disposition: Patient will need PT OT evaluation prior to discharge Family medicine follow-up with Dr. [email or web address] Subjective Denies of any discomfort, no fever or chills Has minimum pain on left knee, Scheduled for left knee washout tomorrow, patient is ordered n.p.o. past midnight by orthopedics Physical Exam Constitutional: WD/WN, vitals as above + obese; no acute distress Female no acute distress Eyes: PERRL, conjunctivae normal, anicteric sclerae ENMT: external ear and nose normal, oropharynx normal Neck: trachea midline, no thyromegaly Respiratory: normal respiratory effort, lungs clear to auscultation Cardiovascular: RRR, no murmur, no edema Gastrointestinal (Abdomen): normal bowel sounds, soft, nontender, no hepatosplenomegaly Musculoskeletal: Left knee on Tadeo wrap and immobilizer Neurologic: PERRL, EOMI, accommodation nl, no face palsy, no dysarthria Psychiatric: A+Ox3, euthymic affect Results & Data Vital Signs (Past 12 Hours) Vital Signs Temp Pulse Resp BP Pulse Ox 03/10/19 15:03 37 C 97 H 18 157/93 H 96 03/10/19 07:59 37.5 C 118 H 20 146/87 H 95 (1) BPH (benign prostatic hyperplasia) Lower urinary tract symptom detail: unspecified (2) Gout Chronicity: unspecified Gout etiology: unspecified cause Gout site: unspecified site Qualified Code(s): M10.9 - Gout, unspecified (3) AD (Alzheimer's disease) Alzheimer's disease onset: unspecified onset (4) COPD (chronic obstructive pulmonary disease) COPD type: unspecified COPD Qualified Code(s): J44.9 - Chronic obstructive pulmonary disease, unspecified (5) Septic joint of left knee joint Septic arthritis organism: due to unspecified organism Qualified Code(s): M00.9 - Pyogenic arthritis, unspecified
[2019-03-10] MEDS ORDERED: AZTREONAM 1,000 MG in DEXTROSE 5% 100 ML IV SCH (18:30)
[2019-03-10] MEDS: ALBUT/IPRATROP 3MG/0.5MG NEB 3 ML VIAL NEB SCH ×2 (19:43→23:33)
[2019-03-10] MEDS: DONEPEZIL HCL 5 MG TAB PO SCH (20:42)
[2019-03-10] MEDS: QUETIAPINE FUMARATE 25 MG TABLET PO SCH (20:42)
[2019-03-11] MEDS: ALBUT/IPRATROP 3MG/0.5MG NEB 3 ML VIAL NEB SCH ×7 (03:51→23:47)
[2019-03-11] MEDS: VANCOMYCIN HCL 1,750 MG in SODIUM CHLORIDE 0.9% 500 ML IV SCH ×2 (05:10→21:26)
[2019-03-11 06:08] LABS: Hematocrit (blood only) 40.3 % (42-52); Hemoglobin 13.5 g/dL (14.0-18.0); Mean Corpuscular Hgb Conc 33.5 g/dL (32-36); Mean Corpuscular Volume 91.8 fL (80-100); Mean Platelet Volume 10.1 fL (7.4-10.4); Platelet Count 192 K/uL (130-400); RDW Coefficient of Variation 13.9 % (11.5-14.5); RDW Standard Deviation 46.8 fL (36.4-46.3); Red Blood Count 4.39 M/uL (4.7-6.1); White Blood Count 6.18 K/uL (4.8-10.8)
[2019-03-11 06:26] LABS: BUN Creatinine Ratio 14.9 (10-20); Calcium 8.5 mg/dl (8.5-10.1); Creatinine Clr Calc Pharmacy 39.4 ml/min; Est GFR (African American) 41.1; Est GFR (Non-African American) 35.5; Potassium 4.1 mmol/L (3.5-5.1)
[2019-03-11] MEDS ORDERED: PROPOFOL IV EMULSION 10 MG/ML 20 ML VIAL IV ONE (06:58)
[2019-03-11] MEDS ORDERED: ONDANSETRON INJ 2 MG/ML 2 ML VIAL ONE ×2 (06:58→09:32)
[2019-03-11] MEDS ORDERED: LIDOCAINE HCL 2% 2 ML VIAL/AMP(20MG/ML) INFIL ONE (06:58)
[2019-03-11] MEDS ORDERED: fentaNYL citrate 100 MCG/2 ML VIAL ONE (06:59)
--- NOTE | 2019-03-11 07:09 | Anesthesiology Consultation ---
Date of Service March 11, 2019 Assessment & Plan (1) Encounter for pre-operative examination: Chart Review Chart Review: Acceptable Risk for Surgery Consults Requested none ASA ASA3 Proposed Anesthesia Anesthesia Type: General Risk / Benefits Reviewed With: PT / POA / Parent / Guardian, Accepts Plan and Informed Consent Obtained History Surgery Operation Date: 03/10/19 07:30 Proposed Procedures p Arthroscopy Incision and Drainage Left Total Knee - Denis Ugalde MD Operation Date: 03/11/19 07:00 Proposed Procedures p Arthroscopy Knee(Left) - Denis Ugalde MD s Incision and Drainage Knee(Left) - Denis Ugalde MD Height/Weight Height: 5 ft 9 in Weight: 124.268 kg Allergies Allergy/AdvReac Type Severity Reaction Status Date / Time Penicillins Allergy Severe ANAPHYLAXIS Verified 03/09/19 14:24 codeine Allergy Unknown UNKNOWN Verified 03/09/19 14:24 latex Allergy Unknown unk Verified 03/09/19 14:24 propoxyphene Allergy Unknown SHORTNESS Verified 03/09/19 14:24 OF BREATH Medications Home Medications Medication Instructions Recorded Confirmed Last Taken Lactobacillus acidoph-L.bulgar 1 tab PO BID 03/09/19 03/09/19 03/09/19 [Lactinex] acetaminophen [Tylenol Extra 500 mg PO Q6H PRN 03/09/19 03/09/19 03/09/19 09:30 Strength] 1000mg albuterol sulfate 2 puff INHALATION Q6H PRN 03/09/19 03/09/19 Unknown allopurinol 200 mg PO QAM 03/09/19 03/09/19 03/09/19 amlodipine 2.5 mg PO QAM 03/09/19 03/09/19 03/09/19 aspirin 81 mg PO QAM 03/09/19 03/09/19 03/09/19 cholecalciferol (vitamin D3) 2,000 unit PO HS 03/09/19 03/09/19 03/08/19 [Vitamin D3] diclofenac sodium 2 g TOPICAL QID 03/09/19 03/09/19 03/09/19 donepezil 5 mg PO HS 03/09/19 03/09/19 03/08/19 fluticasone furoate-vilanterol 1 inh INHALATION QAM 03/09/19 03/09/19 03/09/19 [Breo Ellipta] furosemide 20 mg PO 3XWK 03/09/19 03/09/19 03/09/19 ipratropium-albuterol 3 ml INHALATION TID PRN 03/09/19 03/09/19 Unknown lorazepam 0.25 mg PO QAM 03/09/19 03/09/19 03/09/19 0.5mg lorazepam 0.5 mg PO HS 03/09/19 03/09/19 03/08/19 memantine 10 mg PO QAM 03/09/19 03/09/19 03/09/19 metoprolol succinate 50 mg PO BID 03/09/19 03/09/19 03/09/19 multivitamin 1 tab PO QAM 03/09/19 03/09/19 03/09/19 nystatin 1 applic TOPICAL BID 03/09/19 03/09/19 03/08/19 nystatin 1 applic TOPICAL TID 03/09/19 03/09/19 03/08/19 potassium chloride 20 meq PO 3XWK 03/09/19 03/09/19 03/09/19 quetiapine 25 mg PO HS 03/09/19 03/09/19 03/08/19 quetiapine 50 mg PO HS 03/09/19 03/09/19 03/08/19 ranitidine HCl 300 mg PO HS 03/09/19 03/09/19 03/08/19 tamsulosin 0.4 mg PO DAILY 03/09/19 03/09/19 03/09/19 tiotropium bromide [Spiriva with 18 mcg INHALATION QAM 03/09/19 03/09/19 03/09/19 HandiHaler] Active Medications Generic Name Dose Route Start Last Admin Trade Name Freq PRN Reason Stop Dose Admin Acetaminophen 500 mg 03/09/19 17:38 03/10/19 07:57 Tylenol PO 04/08/19 17:37 500 mg Q6H PRN Administration Pain Albuterol 3 ml 03/10/19 20:00 03/11/19 03:51 Duoneb NEB 04/09/19 19:59 3 ml Q4R NARDA Administration Allopurinol 200 mg 03/10/19 09:00 03/10/19 08:01 Zyloprim PO 04/09/19 08:59 200 mg QAM NARDA Administration Amlodipine Besylate 2.5 mg 03/10/19 09:00 03/10/19 08:01 Norvasc PO 04/09/19 08:59 2.5 mg QAM NARDA Administration Aspirin 81 mg 03/10/19 09:00 03/10/19 07:58 Ecotrin Ectab PO 04/09/19 08:59 81 mg QAM NARDA Administration Ciprofloxacin 500 mg 03/09/19 20:00 03/10/19 20:42 Cipro PO 04/20/19 19:59 500 mg Q12H NARDA Administration Donepezil HCl 5 mg 03/09/19 21:00 03/10/19 20:42 Aricept PO 04/08/19 20:59 5 mg HS NARDA Administration Furosemide 20 mg 03/09/19 17:38 03/09/19 19:34 Lasix PO 04/08/19 17:37 20 mg [id number] NARDA Administration Vancomycin HCl 1,750 mg/ 535 mls @ 200 mls/hr 03/10/19 10:00 03/11/19 05:10 Sodium Chloride IV 04/21/19 09:59 200 mls/hr Q18H NARDA Administration Lactobacillus Acidophilus 1 gm 03/09/19 21:00 03/10/19 20:42 Floranex Granules/Powder Packet PO 04/08/19 20:59 1 gm BID NARDA Administration Lorazepam 0.25 mg 03/10/19 09:00 03/10/19 09:52 Ativan PO 04/09/19 08:59 0.25 mg QAM NARDA Administration Lorazepam 0.5 mg 03/09/19 21:00 03/10/19 20:42 Ativan PO 04/08/19 20:59 0.5 mg HS NARDA Administration Memantine 10 mg 03/10/19 09:00 03/10/19 07:59 Namenda PO 04/09/19 08:59 10 mg QAM NARDA Administration Metoprolol Succinate 50 mg 03/09/19 21:00 03/10/19 20:42 Toprol Xl PO 04/08/19 20:59 50 mg BID NARDA Administration Miscellaneous 1 ea 03/10/19 00:00 03/10/19 23:30 Order Awaiting Action N/A 04/09/19 00:00 Not Given QS NARDA Nystatin 1 appln 03/09/19 21:00 03/10/19 20:41 Mycostatin EXT 04/08/19 20:59 1 appln TID NARDA Administration Potassium Chloride 20 meq 03/09/19 17:38 03/09/19 19:34 Klor-Con M10 PO 04/08/19 17:37 20 meq [id number] NARDA Administration Quetiapine Fumarate 75 mg 03/09/19 21:00 03/10/19 20:42 Seroquel PO 04/08/19 20:59 75 mg HS NARDA Administration Ranitidine HCl 300 mg 03/09/19 21:00 03/10/19 20:42 Zantac PO 04/08/19 20:59 300 mg HS NARDA Administration Rifampin 600 mg 03/09/19 17:38 03/10/19 09:53 Rifampin PO 04/20/19 17:37 600 mg QAM NARDA Administration Tamsulosin HCl 0.4 mg 03/10/19 09:00 03/10/19 07:59 Flomax PO 04/09/19 08:59 0.4 mg DAILY NARDA Administration Tiotropium [place] 1 puffs 03/10/19 09:00 03/10/19 09:54 Spiriva INH 04/09/19 08:59 1 puffs QAM NARDA Administration NPO Date Last Intake of Fluids: 03/10/19 Time Last Intake of Fluids: 23:59 Date Last Intake of Solids: 03/10/19 Time Last Intake of Solids: 23:59 Past Medical History Medical History Mood disorder (Chronic) Nocturnal hypoxemia (Chronic) CKD (chronic kidney disease), stage III (Chronic) AD (Alzheimer's disease) (Chronic) History of gout (Chronic) Venous insufficiency (Chronic) History of DVT (deep vein thrombosis) (Chronic) History of pulmonary embolism (Chronic) Pulmonary emboli (Chronic) "After flying to [email or web address]; s/p IVC filter " On 10/23/15 21:41 Trisha Winston wrote "After flying to [place], on coumadin s/p IVC filter " HLD (hyperlipidemia) (Chronic) HTN (hypertension) (Chronic) COPD (chronic obstructive pulmonary disease) (Chronic) Gout (Chronic) BPH (benign prostatic hyperplasia) (Chronic) Current use of [facility] anticoagulation (Chronic) Anxiety (Chronic) Exercise / Class Metabolic Activity III < 4 Walking/Shop/Light housework Past Family History Family History Other No significant family history Past Surgical History Surgical History History of left knee replacement (Chronic) H/O total knee replacement (Chronic) H/O hernia repair (Chronic) H/O colonoscopy (Chronic) "Multiple diverticulum " S/P tonsillectomy (Chronic) S/P appendectomy (Chronic) S/P IVC filter (Chronic) Past Anesthesia History No Hx of Anesthesia Complications and No Family Hx of Anesthesia Complications History of PONV No Hx of PONV and No Hx of Motion Sickness Social History Smoking Status: Never smoker Hx Alcohol Use: No Hx Substance Use: No Physical Exam Vital Signs Last Vital Signs Temp 99.5 F 03/11/19 06:52 Pulse 100 H 03/11/19 06:52 Resp 18 03/11/19 06:52 BP 147/85 H 03/11/19 06:52 Pulse Ox 91 03/11/19 06:52 ENMT Mouth: no dentition abnormality Thyromental Distance: > or= 3.5 Finger Breadths Mallampati Class: II Neck normal visual inspection Respiratory + uses accessory muscles Auscultation: + wheezes Cardiovascular Rate/Rhythm: regular rate and regular rhythm Testing Laboratory Results 03/11/19 05:16 03/11/19 05:16 PT 10.4 Seconds (9.0-12.0) 03/09/19 13:15 INR 1.0 (0.9-1.1) 03/09/19 13:15 APTT 30.3 Seconds (21.0-31.0) 03/09/19 13:15 Urine Color Dark Yellow 03/09/19 23:55 Urine Appearance Clear (Clear) 03/09/19 23:55 Urine pH 6.0 (4.5-7.5) 03/09/19 23:55 Ur Specific [place] 1.020 (1.000-1.030) 03/09/19 23:55 Urine Protein 1+ (Negative) H 03/09/19 23:55 Urine Glucose (UA) Negative (Negative) 03/09/19 23:55 Urine Ketones Negative (Negative) 03/09/19 23:55 Urine Nitrite Negative (Negative) 03/09/19 23:55 Ur Leukocyte Esterase Negative (Negative) 03/09/19 23:55 Urine WBC (Auto) 1-5 /hpf (0-5) 03/09/19 23:55 Urine RBC (Auto) 5-10 /hpf (0-4) H 03/09/19 23:55 U Hyaline Cast (Auto) 1-5 /lpf (0-5) 03/09/19 23:55 U Epithel Cells (Auto) 5-10 /lpf (0-5) H 03/09/19 23:55 Urine Bacteria (Auto) Negative (Negative) 03/09/19 23:55 03/09/19 16:00 Gram Stain - Final Knee,Left Aerobic and Anaerobic Culture - Preliminary No growth to date. Electrocardiogram Date: 03/09/19 Sinus tachycardia, rate 106 bpm Right bundle branch block Possible Anterolateral infarct , age undetermined Abnormal ECG When compared with ECG of 11-APR-2018 17:27, No significant change was found Confirmed by Harry Gutierrez ([id number]) on 03/09/2019 5:00:26 PM Chest X-Ray Date: 03/09/19 IMPRESSION: Cardiomegaly with no acute cardiopulmonary abnormality.
[2019-03-11] MEDS ORDERED: LIDOCAINE/EPINEPHRINE 1% 20 ML VIAL ONE (07:11)
[2019-03-11] MEDS ORDERED: EpINEphrine HCL INJ 1 MG/ML 1ML SYRINGE ONE (07:12)
[2019-03-11] MEDS ORDERED: ALBUT/IPRATROP 3MG/0.5MG NEB 3 ML VIAL NEB STA (07:19)
[2019-03-11] MEDS ORDERED: fentaNYL citrate 100 MCG/2 ML VIAL IV PRN (07:23)
[2019-03-11] MEDS ORDERED: ATROPINE SULFATE 0.1 MG/ML 10ML SYR IV PRN (07:23)
[2019-03-11] MEDS ORDERED: ONDANSETRON INJ 2 MG/ML 2 ML VIAL IV PRN (07:23)
[2019-03-11] MEDS ORDERED: ePHEDrine sulfate 50 MG/ML AMP IV PRN (07:23)
--- NOTE | 2019-03-11 07:27 | History & Physical Bridge Note ---
Date of Service March 11, 2019 History & Physical Bridge Note I have examined the patient, reviewed the History & Physical and in the interval since the performance of the History & Physical I have noted the following changes of clinical significance: no changes noted
[2019-03-11] MEDS ORDERED: ACETAMINOPHEN 1000 MG/100 ML IV IV ONE (07:54)
--- NOTE | 2019-03-11 09:00 | Operative Report ---
Post Operative Report Pre & Post Diagnosis Operation Date: 03/10/19 07:30 <No data on this case meets the specified criteria> Operation Date: 03/11/19 07:00 Pre-Op Diagnosis: recurrent left total knee joint infection Post-Op Diagnosis: recurrent left total knee joint infection Procedure Operation Date: 03/10/19 07:30 <No data on this case meets the specified criteria> Operation Date: 03/11/19 07:00 Actual Procedures p Arthroscopy Knee(Left) - Denis Ugalde MD s Incision and Drainage Knee(Left) - Denis Ugalde MD Surgeon Denis Ugalde MD Exhibitions Curator None Estimated Blood Loss 15 Findings Consistent with Post-Op Diagnosis Specimens None Drains 1 Hemovac Anesthesia Type General Complications none Disposition Accompanied Patient To Recovery: No Disposition: Recovery Room Indications Patient is 88 years old. He has had a total knee for about 8 years. 2 years ago he had an infection which was treated with I&D and poly-exchange. He has experienced recurrent acute onset knee pain and swelling over the past several days. White blood cell count fluid is about 25,000. Cultures have not grown anything. Sed rate and C-reactive protein are markedly elevated. He has had fever and a normal white count with a left shift. Gram stain shows gram- positive cocci. He is taken to the OR for arthroscopic irrigation and debridement. Patient will likely need definitive treatment with explantation although chronic suppressive antibiotics might be an option for him. Description of Procedure Informed consent obtained. Patient identified. He and his daughter who has power of attorney lawyer identified the operative site as the left knee. I marked with my initials. Preop surgical timeout performed. He received a preop dose of intravenous antibiotics. The examination showed range of motion from 0 degrees of extension to 105 degrees of flexion. The knee was stable with an intact posterior drawer. Stable in full extension. No MCL laxity in mid position. 1+ LCL laxity in mid position. There was a large effusion in the left knee. Leg was prepped and draped in the usual sterile fashion. DVT prophylaxis with foot pumps. Postoperatively mechanical devices and likely Lovenox. Preop medical evaluation obtained. Inferolateral viewing portal superior lateral outflow portal and inferomedial working portals were established. The scope was gently inserted into the knee into the anterior compartment. Shaver was brought in medial portal. Debridement of the anterior tissues and thorough irrigation was performed. The polyethylene and its post as well as the femoral condyles look normal. The scope was then introduced into the suprapatellar pouch in an atraumatic fashion and the shaver was placed through the superolateral portal. Again debridement and irrigation was performed for a total of 12+ liters. A large Hemovac drain was inserted exiting out the superolateral portal. I do not obtain any cultures as they were already done. The drain was not sewn in. The portals were closed with 4-0 nylon. A bulky soft sterile dressing was applied Xeroform 4 x 4's cast padding full-length Tadeo wrap in the immobilizer. He was awakened from anesthesia without difficulty and taken to the recovery room in stable condition. There were no specimens or complications. Counts were correct. Blood loss was 15 cc. At the conclusion the operation spoke patient's family and informed of my findings. Detailed postoperative instructions were given. He will continue on intravenous antibiotics. Lovenox for DVT prophylaxis. Will consult with total joint reconstruction specialist for further definitive management. Approximately 50 cc of yellow purulent material were evacuated from the knee upon introduction of the scope. Synovitis was noted throughout the knee and debrided. Lidocaine 1% with epinephrine was injected around the arthroscopic portal sites. I attest to the content of the Intraoperative Record and any orders documented therein. Any exceptions are noted below.
[2019-03-11] MEDS ORDERED: MAGNESIUM HYDROXIDE SUSP 30 ML UDC PO PRN (09:55)
[2019-03-11] MEDS ORDERED: NALOXONE HCL 0.4 MG/1 ML VIAL/CARP IV PRN (09:55)
[2019-03-11] MEDS ORDERED: OXYCODONE HCL IR 5 MG TAB (IMMEDIATE RELEASE) PO PRN (09:55)
[2019-03-11] MEDS ORDERED: BISACODYL 10 MG SUPP PR PRN (09:55)
[2019-03-11] MEDS ORDERED: TRAMADOL HCL 50 MG TABLET PO PRN (09:55)
[2019-03-11] MEDS ORDERED: SODIUM CHLORIDE 0.9% 1000ML 1,000 ML IV SCH (09:55)
[2019-03-11] MEDS ORDERED: HYDROmorphone INJ 0.5 MG/0.5 ML SYR IV PRN (09:55)
--- NOTE | 2019-03-11 10:02 | Anesthesiology Progress Note ---
Date of Service March 11, 2019 Anesthesia Post Procedure Vital Signs Vital Signs: Temp Pulse Pulse Pulse Resp BP BP 03/11/19 09:57 98.6 F 110 H 20 123/78 03/11/19 09:40 98.1 F 111 H 20 156/91 H 03/11/19 09:30 111 H 20 156/91 H 03/11/19 09:20 111 H 14 129/99 03/11/19 09:12 97.9 F 117 H 14 142/99 H 03/11/19 07:40 80 16 03/11/19 06:52 99.5 F 100 H 18 147/85 H 03/11/19 03:51 97 H 18 03/10/19 23:37 103 H 20 03/10/19 23:29 99.0 F 106 H 18 141/96 H 03/10/19 20:36 99 H 147/84 H 03/10/19 19:45 98 H 18 03/10/19 15:03 98.6 F 97 H 18 157/93 H Pulse Ox 03/11/19 09:57 89 L 03/11/19 09:40 93 03/11/19 09:30 94 03/11/19 09:20 93 03/11/19 09:12 93 03/11/19 07:40 94 03/11/19 06:52 91 03/11/19 03:51 96 03/10/19 23:37 95 03/10/19 23:29 96 03/10/19 20:36 03/10/19 19:45 96 03/10/19 15:03 96 Pain Intensity Left Knee: Pain Intensity: 8 Transfer of Care Handoff Completed per policy Notes Mental Status: alert / awake / arousable and participated in evaluation Patient Amnestic to Procedure: Yes Nausea / Vomiting: adequately controlled Pain: adequately controlled Airway Patency, RR, SpO2: stable & adequate BP & HR: stable & adequate Hydration State: stable & adequate Anesthetic Complications: no major complications apparent and Pt Satisfied with anesthetic care
--- NOTE | 2019-03-11 13:52 | Infectious Disease Consult ---
Date of Consultation March 11, 2019 Assessment & Plan (1) Septic joint of left knee joint: Patient with infected left TKA, final identification and sensitivities are pending. Vancomycin appropriate for now pending these results. Will discuss need for further intervention including removal of prosthesis with orthopedic surgery. Will follow. History of Present Illness Reason for Consultation: Septic left knee Attending Physician: Denis Ugalde MD History of Present Illness 88-year-old male with history of hypertension, COPD, Alzheimer's, pulmonary emboli, BPH, gout, who is status post left knee replacement in 2012. He had no problems until 3 days prior to admission when he noted increasing pain in his left knee with difficulty ambulating. Was brought to the emergency department, and aspirate revealed fluid consistent with infection. Underwent arthroscopic drainage today. Cultures of aspirate now growing gram-positive cocci. Currently being treated with IV vancomycin. No report of significant fever, skin infections prior to admission. States pain currently 2 out of 10 in intensity left knee. Allergies Allergy/AdvReac Type Severity Reaction Status Date / Time Penicillins Allergy Severe ANAPHYLAXIS Verified 03/09/19 14:24 codeine Allergy Unknown UNKNOWN Verified 03/09/19 14:24 latex Allergy Unknown unk Verified 03/09/19 14:24 propoxyphene Allergy Unknown SHORTNESS Verified 03/09/19 14:24 OF BREATH Home Medications Home Medications Medication Instructions Recorded Confirmed Type Lactobacillus acidoph-L.bulgar 1 tab PO BID 03/09/19 03/09/19 History [Lactinex] acetaminophen [Tylenol Extra 500 mg PO Q6H PRN 03/09/19 03/09/19 History Strength] albuterol sulfate 2 puff INHALATION Q6H PRN 03/09/19 03/09/19 History allopurinol 200 mg PO QAM 03/09/19 03/09/19 History amlodipine 2.5 mg PO QAM 03/09/19 03/09/19 History aspirin 81 mg PO QAM 03/09/19 03/09/19 History cholecalciferol (vitamin D3) 2,000 unit PO HS 03/09/19 03/09/19 History [Vitamin D3] diclofenac sodium 2 g TOPICAL QID 03/09/19 03/09/19 History donepezil 5 mg PO HS 03/09/19 03/09/19 History fluticasone furoate-vilanterol 1 inh INHALATION QAM 03/09/19 03/09/19 History [Breo Ellipta] furosemide 20 mg PO 3XWK 03/09/19 03/09/19 History ipratropium-albuterol 3 ml INHALATION TID PRN 03/09/19 03/09/19 History lorazepam 0.25 mg PO QAM 03/09/19 03/09/19 History lorazepam 0.5 mg PO HS 03/09/19 03/09/19 History memantine 10 mg PO QAM 03/09/19 03/09/19 History metoprolol succinate 50 mg PO BID 03/09/19 03/09/19 History multivitamin 1 tab PO QAM 03/09/19 03/09/19 History nystatin 1 applic TOPICAL BID 03/09/19 03/09/19 History nystatin 1 applic TOPICAL TID 03/09/19 03/09/19 History potassium chloride 20 meq PO 3XWK 03/09/19 03/09/19 History quetiapine 25 mg PO HS 03/09/19 03/09/19 History quetiapine 50 mg PO HS 03/09/19 03/09/19 History ranitidine HCl 300 mg PO HS 03/09/19 03/09/19 History tamsulosin 0.4 mg PO DAILY 03/09/19 03/09/19 History tiotropium bromide [Spiriva with 18 mcg INHALATION QAM 03/09/19 03/09/19 History HandiHaler] Patient History Medical History Mood disorder (Chronic) Nocturnal hypoxemia (Chronic) CKD (chronic kidney disease), stage III (Chronic) AD (Alzheimer's disease) (Chronic) History of gout (Chronic) Venous insufficiency (Chronic) History of DVT (deep vein thrombosis) (Chronic) History of pulmonary embolism (Chronic) Pulmonary emboli (Chronic) "After flying to [place]; s/p IVC filter " On 10/23/15 21:41 Trisha Winston wrote "After flying to [place], on coumadin s/p IVC filter " HLD (hyperlipidemia) (Chronic) HTN (hypertension) (Chronic) COPD (chronic obstructive pulmonary disease) (Chronic) Gout (Chronic) BPH (benign prostatic hyperplasia) (Chronic) 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) Anxiety (Chronic) Surgical History History of left knee replacement (Chronic) H/O total knee replacement (Chronic) H/O hernia repair (Chronic) H/O colonoscopy (Chronic) "Multiple diverticulum " S/P tonsillectomy (Chronic) S/P appendectomy (Chronic) S/P IVC filter (Chronic) Family History Other No significant family history Social History Preferred Language: Lebanese Communication Ability: Effective Hearing Ability: Hard of Hearing Cloth Feeder Required: No Current Living Situation: Family Current Living Situation Comment: apartment 07/03 care Other Information That Helps Us Care for You: No Feels Safe at Home: Yes Safety Concerns: Feels Safe At This Time Smoking Status: Never smoker Hx Alcohol Use: No Hx Substance Use: No Review of Systems Review of Systems: All systems reviewed & are unremarkable except as noted in HPI & below Physical Exam Constitutional: WD/WN, vitals as above comfortable; no acute distress Eyes: PERRL, conjunctivae normal, anicteric sclerae ENMT: external ear and nose normal, oropharynx normal Neck: trachea midline, no thyromegaly neck nontender Respiratory: normal respiratory effort, lungs clear to auscultation normal percussion; does not use accessory muscles Cardiovascular: Rate/Rhythm: regular rate and regular rhythm Heart Sounds: normal S1 and normal S2; no gallop, no murmur and no cardiac rub Vessels: normal peripheral pulses; no JVD Gastrointestinal (Abdomen): normal bowel sounds, soft, nontender, no hep atosplenomegaly Musculoskeletal: no cyanosis or clubbing, extremities motor strength 5/5 Spine: thoracic spine normal to inspection and lumbar spine normal to inspection; no cervical spinal tenderness Skin: no rashes, warm and dry normal turgor Surgical dressing in place left knee Neurologic: patellar DTR's 2+ bilat, sensation intact no focal motor deficits Psychiatric: A+Ox3, euthymic affect Orientation: cooperative Lymphatic: no cervical or axillary lymphadenopathy no inguinal lymphadenopathy Results & Data Vital Signs (Past 12 Hours) Vital Signs Temp Pulse Pulse Pulse Resp BP BP 03/11/19 13:03 36.3 C L 119 H 19 131/83 03/11/19 12:06 36.7 C 110 H 20 125/81 03/11/19 11:35 108 H 24 03/11/19 11:10 36.9 C 106 H 20 144/91 H 03/11/19 10:46 37 C 114 H 20 120/78 03/11/19 09:57 37.0 C 110 H 20 123/78 03/11/19 09:40 36.7 C 111 H 20 156/91 H 03/11/19 09:30 111 H 20 156/91 H 03/11/19 09:20 111 H 14 129/99 03/11/19 09:12 36.6 C 117 H 14 142/99 H 03/11/19 07:40 80 16 03/11/19 06:52 37.5 C 100 H 18 147/85 H 03/11/19 03:51 97 H 18 Pulse Ox 03/11/19 13:03 93 03/11/19 12:06 92 03/11/19 11:35 93 03/11/19 11:10 92 03/11/19 10:46 90 03/11/19 09:57 89 L 03/11/19 09:40 93 03/11/19 09:30 94 03/11/19 09:20 93 03/11/19 09:12 93 03/11/19 07:40 94 03/11/19 06:52 91 03/11/19 03:51 96 Laboratory Results Short CBC 03/11/19 Range/Units 05:16 WBC 6.18 (4.8-10.8) K/uL Hgb 13.5 L (14.0-18.0) g/dL Hct 40.3 L (42-52) % Plt Count 192 (130-400) K/uL BMP 03/11/19 05:16 Sodium 140 Potassium 4.1 Chloride 104 Carbon Dioxide 30 BUN 25 H Creatinine 1.69 H Glucose 104 H Calcium 8.5 Diagnostic Findings Microbiology 03/09/19 16:00 Knee,Left Gram Stain - Final 03/09/19 16:00 Knee,Left Aerobic and Anaerobic Culture - Preliminary Gram positive cocci XR knee LT 2V routine CLINICAL HISTORY: swelling, pain pain. Edema. COMPARISON: 06/11/2016 DISCUSSION: Total left knee arthroplasty in good position. Good contact between the prosthetic con Bone. Small joint effusion. Mild prepatellar and prefemoral soft tissue edema. IMPRESSION: 1. Small joint effusion with mild prepatellar/prefemoral soft tissue edema. 2. Otherwise negative study post total left knee arthroplasty. The above report was generated using voice recognition software. It may contain grammatical, syntax or spelling errors. Electronically signed by: Hari Martinez M.D. 03/09/2019 1:54 PM (1) Septic joint of left knee joint Septic arthritis organism: due to unspecified organism Qualified Code(s): M00.9 - Pyogenic arthritis, unspecified
[2019-03-11] MEDS: LORazepam 0.5 MG TAB PO SCH ×2 (14:08→20:04)
[2019-03-11] MEDS: TAMSULOSIN HCL 0.4 MG CAP PO SCH (14:10)
[2019-03-11] MEDS: CIPROFLOXACIN 500 MG TAB PO SCH (14:10)
[2019-03-11] MEDS: MEMANTINE HCL 10 MG TAB PO SCH (14:11)
[2019-03-11] MEDS: NYSTATIN POWDER 15GM BTL EXT SCH ×3 (14:11→20:04)
[2019-03-11] MEDS: AMLODIPINE BESYLATE 5 MG TAB PO SCH (14:11)
[2019-03-11] MEDS: ALLOPURINOL 100 MG TAB PO SCH (14:12)
[2019-03-11] MEDS: rifAMPin 300 MG CAPSULE PO SCH (14:14)
[2019-03-11] MEDS: METOPROLOL SUCC 50MG EXT REL TAB PO SCH ×2 (14:14→20:03)
[2019-03-11] MEDS: TIOTROPIUM BROMIDE 5 PUFF/90 MCG INH INH SCH (14:15)
[2019-03-11] MEDS: LACTOBACILLUS ACIDOPHILUS 1 GM PACK PO SCH ×2 (14:16→20:04)
--- NOTE | 2019-03-11 15:00 | Pharmacy Report ---
Pharmacy Abx Initial Consult - Date of Service March 11, 2019 - Pharmacy Dosing Scope Date of Consult: 03/09/19 Consultation requested by: Yasmine Prather Pharmacy is consulted to initiate Vancomycin IV dosing therapy, order appropriate labs and adjust drug dose/frequency. - Subjective The patient is a 88 year old M admitted on 03/09/19 16:40. - Objective Height: 5 ft 9 in Weight: 124.268 kg Vital Signs (Past 12hrs): Vital Signs Temp Pulse Pulse Pulse Resp BP BP 03/11/19 13:03 36.3 C L 119 H 19 131/83 03/11/19 12:06 36.7 C 110 H 20 125/81 03/11/19 11:35 108 H 24 03/11/19 11:10 36.9 C 106 H 20 144/91 H 03/11/19 10:46 37 C 114 H 20 120/78 03/11/19 09:57 37.0 C 110 H 20 123/78 03/11/19 09:40 36.7 C 111 H 20 156/91 H 03/11/19 09:30 111 H 20 156/91 H 03/11/19 09:20 111 H 14 129/99 03/11/19 09:12 36.6 C 117 H 14 142/99 H 03/11/19 07:40 80 16 03/11/19 06:52 37.5 C 100 H 18 147/85 H 03/11/19 03:51 97 H 18 Pulse Ox 03/11/19 13:03 93 03/11/19 12:06 92 03/11/19 11:35 93 03/11/19 11:10 92 03/11/19 10:46 90 03/11/19 09:57 89 L 03/11/19 09:40 93 03/11/19 09:30 94 03/11/19 09:20 93 03/11/19 09:12 93 03/11/19 07:40 94 03/11/19 06:52 91 03/11/19 03:51 96 Lab Results (24hrs): Laboratory Tests (24 Hours) 03/11/19 03/11/19 05:16 05:16 WBC 6.18 Creatinine 1.69 H Est Cr Clr Drug Dosing 39.4 Micro Results: 03/09/19 16:00 Gram Stain - Final Knee,Left - Assessment & Plan Assessment 88 year old M presenting to the ED with complaints of pain in his left knee, which is artificial. He had an infection in the knee following surgery. Current culture of the knee is growing gram-positive cocci. Patient had his knee drained, and pus-like fluid was noted. Surgical intervention may be required. Plan Vancomycin for treatment of Infected Knee hardware Vancomycin IV * Estimated PK Parameters: Vd 0.54 L/kg, Gio 0.036 hr-1, t1/2 19.25 hr * Patient has elevated BMI of 40.5 kg/m2 * Loading dose: 2750 mg (22 mg/kg) * Maintenance dose: 1750mg IV (14 mg/kg) every 18 hours * Goal trough level for Infected knee hardware: 15 to 20 mcg/mL * Trough level ordered for 03/11/19 at 2130 Pharmacy will continue to follow and will adjust dose/frequency as necessary. Thank you.
[2019-03-11] MEDS ORDERED: FUROSEMIDE 40 MG/4 ML VIAL IV ONE (16:10)
--- NOTE | 2019-03-11 16:27 | XRay Report ---
SINGLE VIEW CHEST CLINICAL HISTORY: Dyspnea. Hypoxia. FINDINGS: An AP, portable, upright chest radiograph is compared to study dated 03/09/2019 and correlat ed with chest CT dated 01/10/2016. The examination is degraded by portable technique, large body habit us, and apical lordotic positioning. The heart is markedly enlarged and there is atherosclerotic edilma cification of the thoracic aorta. The pulmonary vasculature is noncongested. There is chronic elevati on of the left hemidiaphragm and bibasilar scarring/atelectasis. Small pleural effusions are suspecte d. There is no airspace consolidation typical for pneumonia. No pneumothorax is seen. The skeletal st ructures are osteopenic. The bony thorax is grossly intact. IMPRESSION: 1. Cardiomegaly without radiographic evidence of congestive failure. 2. Suspect small pleural effusions. Electronically signed by: Kunal Olguin M.D. 03/11/2019 4:26 PM
--- NOTE | 2019-03-11 17:27 | Hospitalist Progress Note ---
Date of Service March 11, 2019 Assessment & Plan (1) Septic joint of left knee joint: pt had a total knee for about 8 years. hx of recurrent infection last one was 2 years ago which was treated with I&D and poly-exchange. admitted with recurrent acute onset knee pain and swelling over the past several days. Status post joint aspiration done by orthopedics: Synovial fluid analysis shows WBC elevated [id number] Suggestive of septic knee joint Patient is status post arthroscopic washout of left knee joint today, approximately 5 mL of pus drainage was aspirated from the joint space Left knee joint synovial fluid culture: Gram-positive cocci Continued on IV vancomycin, DC ciprofloxacin ID evaluation appreciated (2) Effusion of left knee: H/O L TKA in 2012. Pt presented with edema, pain to left knee with possible infection Ortho on board. Knee aspirated Synovial fluid analysis shows elevated WBC suggestive of septic knee joint Synovial fluid culture gram-positive cocci Status post left knee joint washout today Continue IV vancomycin (3) HTN (hypertension): -Continue metoprolol, amlodipine (4) CKD (chronic kidney disease), stage III: Cr: 1.78. Baseline ~1.6-1.7 -Monitor renal functions -Avoid nephrotoxic agents when possible (5) COPD (chronic obstructive pulmonary disease): No wheeze or shortness of breath, continue PRN inhalers (6) Nocturnal hypoxemia: Was hypoxic operative, noted to be volume overloaded, Acute decompensation of CHF with diastolic dysfunction Given IV Lasix, neb treatment IV fluids discontinued, Hepatic adjusted to IV vancomycin only Continue to monitor volume status On chronic oxygen. 2-5L via NC HS and 2L prn during the day -Continue Breo, Spiriva -Xopenex/atrovent nebs prn (7) History of pulmonary embolism: H/O PE s/p IVC Not on any anticoagulation (8) AD (Alzheimer's disease): -Continue memantine, donepezil (9) Mood disorder: -Continue Seroquel, Ativan (10) Gout: -Continue allopurinol (11) BPH (benign prostatic hyperplasia): -Continue flomax DVT Prophylaxis -SCDs per ortho Disposition: Patient will need PT OT evaluation prior to discharge Family medicine follow-up with Dr. [email or web address] Subjective Arthroscopic washout of left knee joint today\ Patient noted to be hypoxic requiring 5 L oxygen via nasal cannula (at baseline on 2 L O2 at home) Lung auscultation noted to have very coarse Rales in all lung taylor Ordered for 40 mg IV Lasix x1 now Portable chest x-ray Patient denies of any chest heaviness, shortness of breath, no fever or chills Denies of any pain or discomfort on the left knee postsurgical site Physical Exam Constitutional: WD/WN, vitals as above + obese; no acute distress Eyes: PERRL, conjunctivae normal, anicteric sclerae ENMT: external ear and nose normal, oropharynx normal Neck: trachea midline, no thyromegaly Respiratory: no respiratory distress and no cough Auscultation: + crackles and + rales Cardiovascular: RRR, no murmur, no edema Gastrointestinal (Abdomen): normal bowel sounds, soft, nontender, no hepatosplenomegaly Musculoskeletal: Left knee on Tadeo wrap and immobilizer status post surgery Neurologic: PERRL, EOMI, accommodation nl, no face palsy, no dysarthria Psychiatric: A+Ox3, euthymic affect Results & Data Vital Signs (Past 12 Hours) Vital Signs Temp Pulse Pulse Pulse Resp BP BP 03/11/19 15:10 105 H 20 03/11/19 15:01 36.7 C 106 H 19 153/90 H 03/11/19 13:03 36.3 C L 119 H 19 131/83 03/11/19 12:06 36.7 C 110 H 20 125/81 03/11/19 11:35 108 H 24 03/11/19 11:10 36.9 C 106 H 20 144/91 H 03/11/19 10:46 37 C 114 H 20 120/78 03/11/19 09:57 37.0 C 110 H 20 123/78 03/11/19 09:40 36.7 C 111 H 20 156/91 H 03/11/19 09:30 111 H 20 156/91 H 03/11/19 09:20 111 H 14 129/99 03/11/19 09:12 36.6 C 117 H 14 142/99 H 03/11/19 07:40 80 16 03/11/19 06:52 37.5 C 100 H 18 147/85 H Pulse Ox 03/11/19 15:10 95 03/11/19 15:01 92 03/11/19 13:03 93 03/11/19 12:06 92 03/11/19 11:35 93 03/11/19 11:10 92 03/11/19 10:46 90 03/11/19 09:57 89 L 03/11/19 09:40 93 03/11/19 09:30 94 03/11/19 09:20 93 03/11/19 09:12 93 03/11/19 07:40 94 03/11/19 06:52 91 (1) BPH (benign prostatic hyperplasia) Lower urinary tract symptom detail: unspecified (2) Gout Chronicity: unspecified Gout etiology: unspecified cause Gout site: unspecified site Qualified Code(s): M10.9 - Gout, unspecified (3) AD (Alzheimer's disease) Alzheimer's disease onset: unspecified onset (4) COPD (chronic obstructive pulmonary disease) COPD type: unspecified COPD Qualified Code(s): J44.9 - Chronic obstructive pulmonary disease, unspecified (5) Septic joint of left knee joint Septic arthritis organism: due to unspecified organism Qualified Code(s): M00.9 - Pyogenic arthritis, unspecified
[2019-03-11] MEDS: ONDANSETRON INJ 2 MG/ML 2 ML VIAL IV PRN (18:20)
[2019-03-11] MEDS: ACETAMINOPHEN 500 MG TAB PO PRN (18:20)
[2019-03-11] MEDS: DOCUSATE SODIUM 100 MG CAP PO SCH (20:03)
[2019-03-11] MEDS: SENNA 8.6 MG TAB PO SCH (20:03)
[2019-03-11] MEDS: QUETIAPINE FUMARATE 25 MG TABLET PO SCH (20:03)
[2019-03-11] MEDS: DONEPEZIL HCL 5 MG TAB PO SCH (20:04)
[2019-03-11] MEDS: ENOXAPARIN INJ 30 MG/0.3 ML SYR SQ SCH (21:26)
[2019-03-11] MEDS ORDERED: VANCOMYCIN TROUGH ONE (21:30)
[2019-03-12] MEDS: ALBUT/IPRATROP 3MG/0.5MG NEB 3 ML VIAL NEB SCH ×4 (04:45→15:17)
[2019-03-12 07:02] LABS: Hematocrit (blood only) 40.3 % (42-52); Hemoglobin 13.2 g/dL (14.0-18.0); Mean Corpuscular Hgb Conc 32.8 g/dL (32-36); Mean Corpuscular Volume 92.4 fL (80-100); Mean Platelet Volume 9.8 fL (7.4-10.4); Platelet Count 211 K/uL (130-400); RDW Standard Deviation 47.3 fL (36.4-46.3); Red Blood Count 4.36 M/uL (4.7-6.1); White Blood Count 7.48 K/uL (4.8-10.8)
[2019-03-12 07:30] LABS: BUN Creatinine Ratio 14.3 (10-20); Calcium 8.4 mg/dl (8.5-10.1); Creatinine Clr Calc Pharmacy 37.6 ml/min; Est GFR (African American) 38.9; Est GFR (Non-African American) 33.5; Potassium 3.6 mmol/L (3.5-5.1)
[2019-03-12] MEDS: LORazepam 0.5 MG TAB PO SCH ×2 (09:12→21:23)
[2019-03-12] MEDS: DOCUSATE SODIUM 100 MG CAP PO SCH ×2 (09:14→21:24)
[2019-03-12] MEDS: TAMSULOSIN HCL 0.4 MG CAP PO SCH (09:15)
[2019-03-12] MEDS: LACTOBACILLUS ACIDOPHILUS 1 GM PACK PO SCH ×2 (09:15→21:24)
[2019-03-12] MEDS: POTASSIUM CHLORIDE 10 MEQ TABCR PO SCH (09:16)
[2019-03-12] MEDS: FUROSEMIDE 20 MG TAB PO SCH (09:17)
[2019-03-12] MEDS: NYSTATIN POWDER 15GM BTL EXT SCH ×3 (09:18→21:23)
[2019-03-12] MEDS: MEMANTINE HCL 10 MG TAB PO SCH (09:19)
[2019-03-12] MEDS: AMLODIPINE BESYLATE 5 MG TAB PO SCH (09:20)
[2019-03-12] MEDS: TIOTROPIUM BROMIDE 5 PUFF/90 MCG INH INH SCH (09:22)
--- NOTE | 2019-03-12 09:23 | Hospitalist Progress Note ---
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 and poly-exchange -This admission, presented with acute onset of left knee pain and edema -Joint aspiration on admission: WBC 28,317 -Fluid culture growing gram-positive cocci -Continue IV vancomycin; ID consulted, input appreciated -POD#1 S/P arthroscopic washout of left knee joint -PT/OT (2) Chronic diastolic CHF (congestive heart failure): -Postoperatively, patient appearred to be volume overloaded on exam with hypoxia -Received Lasix 40 mg IV x 1 dose -Previously on furosemide 20 mg Tuesday, Tuesday, Tuesday; now increased to daily (3) Constipation: -Patient reports no bowel movement in the past 1 week, no flatus, nausea/poor appetite -Abdomen is distended semi-firm on exam -Check abdominal x-ray -Provide additional bowel regimen (4) HTN (hypertension): -BP controlled, continue metoprolol and amlodipine (5) CKD (chronic kidney disease), stage III: -baseline ~1.6-1.7 -Creat 1.7 today -Monitor renal functions -Avoid nephrotoxic agents when possible (6) COPD (chronic obstructive pulmonary disease): -No signs of acute exacerbation, continue home inhalers (7) Nocturnal hypoxemia: -on chronic oxygen. 2-5L via NC HS and 2L prn during the day (8) History of pulmonary embolism: -H/O PE s/p IVC -Not on any anticoagulation (9) AD (Alzheimer's disease): -Continue memantine, donepezil (10) Mood disorder: -Continue Seroquel, Ativan (11) Gout: -Continue allopurinol (12) BPH (benign prostatic hyperplasia): -Continue flomax (13) DVT prophylaxis: -Lovenox 30 mg SQ twice daily as per orthopedics Supervising Physician Co-Signing Physician Notes Attending addendum: Patient seen and examined, care coordinated with Fernanda MCDANIEL Patient reports of abdominal distention, bloating No nausea vomiting or pain Has not had bowel movement for the last few days No fever or chills Has minimum pain/soreness on left knee Physical exam: General: Elderly male very hard of hearing, obese no sign of distress HEENT: Within normal limit Neck: No JVD, no carotid bruit or thyromegaly noted Abdomen: Mildly distended, soft, no rebound tenderness, hypoactive bowel Respiratory: Diminished breath sound, minimum bibasilar rales, no audible wheeze Extremity: Status post left knee washout surgery yesterday, on Tadeo wrap and immobilizer Neuro: No focal deficit Assessment plan: Septic joint of left knee/gram-positive culture: -Patient is status post total knee replacement approximate 8 years ago -Recurrent infection, Left knee joint aspiration/synovial fluid shows more than 20,000 white count suggestive of bacterial infection -Synovial fluid culture growing gram-positive cocci -Status left knee, I&D, washout procedure yesterday -On IV vancomycin -ID consulted Abdominal bloating/constipation Ordered for x-ray of KUB for evaluation of possible ileus Increase bowel regimen Monitor clinically History of to further documentation by Fernanda talamantes PA-C for discussion of other ongoing issues Mi Awan MD Subjective Patient seen and examined. Resting in bed, no acute distress. Reports pain is well controlled. Has had a poor appetite and some nausea. Denies abdominal pain. Reports no bowel movement or flatus. No chest pain or shortness of breath. Physical Exam Constitutional: WD/WN, vitals as above ENMT: Hard of hearing Respiratory: normal respiratory effort; no respiratory distress Auscultation: + diminished lung sounds; no crackles and no wheezes Cardiovascular: Rate/Rhythm: regular rate and regular rhythm Vessels: normal peripheral pulses Extremities: no edema Gastrointestinal (Abdomen): Inspection/Auscultation: + abdomen distended; + abnormal bowel sounds (Hypoactive) Percussion/Palpation: abdomen nontender, + abdomen not soft (Semifirm) and no hepatosplenomegaly Musculoskeletal: S/P left knee surgery, surgical dressing dry and intact, drain in place draining serosanguineous drainage Psychiatric: Orientation: alert, oriented to person and oriented to place; + not oriented to time Insight: + limited insight Results & Data Vital Signs (Past 12 Hours) Vital Signs Temp Pulse Resp BP Pulse Ox 03/12/19 07:53 36.9 C 95 H 21 115/80 93 03/12/19 04:45 119 H 20 94 03/12/19 03:33 37.5 C 78 20 115/75 95 03/11/19 23:47 70 16 96 03/11/19 22:48 37.2 C 115 H 20 125/79 93 Laboratory Results Short CBC 03/12/19 Range/Units 06:27 WBC 7.48 (4.8-10.8) K/uL Hgb 13.2 L (14.0-18.0) g/dL Hct 40.3 L (42-52) % Plt Count 211 (130-400) K/uL BMP 03/12/19 06:27 Sodium 137 Potassium 3.6 Chloride 102 Carbon Dioxide 27 BUN 25 H Creatinine 1.77 H Glucose 136 H Calcium 8.4 L Microbiology 03/09/19 16:00 Gram Stain - Final Knee,Left Aerobic and Anaerobic Culture - Preliminary Gram positive cocci (1) BPH (benign prostatic hyperplasia) Lower urinary tract symptom detail: unspecified (2) Gout Chronicity: unspecified Gout etiology: unspecified cause Gout site: unspecified site Qualified Code(s): M10.9 - Gout, unspecified (3) AD (Alzheimer's disease) Alzheimer's disease onset: unspecified onset (4) COPD (chronic obstructive pulmonary disease) COPD type: unspecified COPD Qualified Code(s): J44.9 - Chronic obstructive pulmonary disease, unspecified (5) Septic joint of left knee joint Septic arthritis organism: due to unspecified organism Qualified Code(s): M00.9 - Pyogenic arthritis, unspecified
[2019-03-12] MEDS: METOPROLOL SUCC 50MG EXT REL TAB PO SCH ×2 (09:29→21:25)
[2019-03-12] MEDS: ENOXAPARIN INJ 30 MG/0.3 ML SYR SQ SCH ×2 (09:30→21:26)
[2019-03-12] MEDS: rifAMPin 300 MG CAPSULE PO SCH (09:31)
[2019-03-12] MEDS: ALLOPURINOL 100 MG TAB PO SCH (09:32)
--- NOTE | 2019-03-12 09:42 | Orthopedic Progress Note ---
Date of Service March 12, 2019 Assessment & Plan (1) Septic joint of left knee joint: POD 1 S/P Left Knee Arthroscopy with I&D on 03-11-[address] Ugalde *Continue with Hemovac Drain. *Continue ice to knee for pain and swelling *Knee immobilizer for ambulation, WBAT with walker *Activity order placed *OT order placed/Continue PT *Continue Vanc per ID; Await cultures *DVT prophylaxis with lovenox; foot pumps; TEDS *Will discuss with Dr Ugalde next step re D/C plans Present on Admission?: Yes Subjective Patient sitting up in bed. Just finished his breakfast. He said his left knee "feels better today". Jose f/c/s, CP, SOB, lightheadedness, N/V. He has yet to get out of bed. Physical Exam Physical Exam: Patient is alert. Sitting up in bed. Nasal Cannula in place. Left LE Exam: Dressings intact. Drain intact. Immobilizer donned. Able to wiggle toes and ankle. Sensation intact to light touch. Palpable DP and PT pulses. Brisk Capillary refill. Right LE Exam: NV intact. Calve soft. Negative homans. Results & Data Vital Signs (Past 12 Hours) Vital Signs Temp Pulse Resp BP Pulse Ox 03/12/19 07:53 36.9 C 95 H 21 115/80 93 03/12/19 04:45 119 H 20 94 03/12/19 03:33 37.5 C 78 20 115/75 95 03/11/19 23:47 70 16 96 03/11/19 22:48 37.2 C 115 H 20 125/79 93 Laboratory Results 03/12/19 03/12/19 03/11/19 Range/Units 06:27 06:27 21:10 WBC 7.48 (4.8-10.8) K/uL RBC 4.36 L (4.7-6.1) M/uL Hgb 13.2 L (14.0-18.0) g/dL Hct 40.3 L (42-52) % MCV 92.4 (80-100) fL MCH 30.3 (25-34) pg MCHC 32.8 (32-36) g/dL RDW Std Deviation 47.3 H (36.4-46.3) fL RDW Coeff of Robbie 14.0 (11.5-14.5) % Plt Count 211 (130-400) K/uL MPV 9.8 (7.4-10.4) fL Sodium 137 (136-145) mmol/L Potassium 3.6 (3.5-5.1) mmol/L Chloride 102 (98-107) mmol/L Carbon Dioxide 27 (21-32) mmol/L Anion Gap 8.0 (3-11) BUN 25 H (7-18) mg/dl Creatinine 1.77 H (0.6-1.4) mg/dl Est Cr Clr Drug Dosing 37.6 ml/min Est GFR ( Amer) 38.9 Est GFR (Non-Af Amer) 33.5 BUN/Creatinine Ratio 14.3 (10-20) Glucose 136 H (70-99) mg/dl Calcium 8.4 L (8.5-10.1) mg/dl Vancomycin Trough 16.5 (See Comment) mcg/ml (1) Septic joint of left knee joint Septic arthritis organism: due to unspecified organism Qualified Code(s): M00.9 - Pyogenic arthritis, unspecified
[2019-03-12] MEDS: ONDANSETRON INJ 2 MG/ML 2 ML VIAL IV PRN (09:50)
--- NOTE | 2019-03-12 09:51 | Pharmacy Report ---
Pharmacy Abx Dose Short Note - Date of Service March 12, 2019 - Assessment & Plan Assessment 88 year old M receiving vancomycin for treatment of septic joint of infected left knee. Day # 4/10 of antimicrobial therapy. ID consulted and recommends to continue until sensitivities have resulted. Currently growing GPC in L knee culture. Patient has a history of CKD and SCr remains stable for the most part. Plan Vancomycin * Trough level of 16.5 mcg/mL is therapeutic and is at/near Css (prior to the 4th dose) * Continue dose of 1750 mg IV every 18 hours - will need to follow closely in the setting of CKD and elevated BMI * Goal trough level : 15 to 20 mcg/mL * Recheck of trough level ordered for: 03/13/19 prior to the 10 am dose Pharmacy will continue to follow and will adjust dose/frequency as necessary. Thank you.
[2019-03-12] MEDS ORDERED: VANCOMYCIN TROUGH ONE (10:00)
--- NOTE | 2019-03-12 11:02 | Ultrasound Report ---
BILATERAL LOWER EXTREMITY VENOUS DOPPLER HISTORY: Leg swelling. evaluation for dvt COMPARISON STUDY: None. FINDINGS: There is normal compressibility, flow, and augmentation within the bilateral lower extremit y deep venous systems. Of note, the mid superficial femoral vein and popliteal vein within the left l ower extremity was not visualized due to the patient's overlying bandages. IMPRESSION: No DVT within the visualized right or left lower extremity. Electronically signed by: Mathew Cordova M.D. 03/12/2019 11:01 AM
--- NOTE | 2019-03-12 11:12 | XRay Report ---
XR abdomen min 2V HISTORY: 88 years-old Male nausea, abdominal distention acute nausea with abdominal distention COMPARISON: Chest radiograph 03/11/2019 TECHNIQUE: Supine and left lateral decubitus views of the abdomen FINDINGS: No pneumatosis or pneumoperitoneum. IVC filter noted. Bowel gas pattern is nonobstructive. Mild volum e of formed stool noted throughout the colon. Degenerative changes of the hips, pelvis and spine. Hea rt appears enlarged. IMPRESSION: Nonobstructive bowel gas pattern without pneumoperitoneum. The above report was generated using voice recognition software. It may contain grammatical, syntax o r spelling errors. Electronically signed by: Eris Barrow M.D. 03/12/2019 11:11 AM
[2019-03-12] MEDS ORDERED: POLYETHYLENE (MIRALAX) 17 GM PACK PO SCH (12:30)
[2019-03-12] MEDS: POLYETHYLENE (MIRALAX) 17 GM PACK PO SCH ×3 (13:47→21:34)
--- NOTE | 2019-03-12 14:47 | Infectious Disease Progress Nt ---
Date of Service March 12, 2019 Assessment & Plan (1) Septic joint of left knee joint: Patient with infected left TKA, culture with gram positive cocci, final identification and sensitivities are pending. Vancomycin appropriate for now pending these results. Will discuss need for further intervention including removal of prosthesis with orthopedic surgery. Will follow. Subjective Patient seen in follow-up for infected TKA. Offers no new complaints today. Remains afebrile. Cultures growing gram-positive cocci from aspirate. Review of Systems Review of Systems: All systems reviewed & are unremarkable except as noted in HPI & below Physical Exam Constitutional: WD/WN, vitals as above comfortable; no acute distress Eyes: PERRL, conjunctivae normal, anicteric sclerae ENMT: external ear and nose normal, oropharynx normal Neck: trachea midline, no thyromegaly neck nontender Respiratory: normal respiratory effort, lungs clear to auscultation normal percussion; does not use accessory muscles Cardiovascular: Rate/Rhythm: regular rate and regular rhythm Heart Sounds: normal S1 and normal S2; no gallop, no murmur and no cardiac rub Vessels: normal peripheral pulses; no JVD Gastrointestinal (Abdomen): normal bowel sounds, soft, nontender, no hepatosplenomegaly Musculoskeletal: no cyanosis or clubbing, extremities motor strength 5/5 Spine: thoracic spine normal to inspection and lumbar spine normal to inspection; no cervical spinal tenderness Skin: no rashes, warm and dry normal turgor Neurologic: patellar DTR's 2+ bilat, sensation intact no focal motor deficits Psychiatric: A+Ox3, euthymic affect Orientation: cooperative Lymphatic: no cervical or axillary lymphadenopathy no inguinal lymphadenopathy Results & Data Vital Signs (Past 12 Hours) Vital Signs Temp Pulse Resp BP Pulse Ox 03/12/19 07:53 36.9 C 95 H 21 115/80 93 03/12/19 04:45 119 H 20 94 03/12/19 03:33 37.5 C 78 20 115/75 95 Laboratory Results Short CBC 03/12/19 Range/Units 06:27 WBC 7.48 (4.8-10.8) K/uL Hgb 13.2 L (14.0-18.0) g/dL Hct 40.3 L (42-52) % Plt Count 211 (130-400) K/uL BMP 03/12/19 06:27 Sodium 137 Potassium 3.6 Chloride 102 Carbon Dioxide 27 BUN 25 H Creatinine 1.77 H Glucose 136 H Calcium 8.4 L Diagnostic Findings Microbiology 03/09/19 16:00 Knee,Left Gram Stain - Final 03/09/19 16:00 Knee,Left Aerobic and Anaerobic Culture - Preliminary Gram positive cocci (1) Septic joint of left knee joint Septic arthritis organism: due to unspecified organism Qualified Code(s): M00.9 - Pyogenic arthritis, unspecified
[2019-03-12] MEDS: VANCOMYCIN HCL 1,750 MG in SODIUM CHLORIDE 0.9% 500 ML IV SCH (16:01)
[2019-03-12] MEDS ORDERED: ALBUT/IPRATROP 3MG/0.5MG NEB 3 ML VIAL NEB PRN (18:06)
--- NOTE | 2019-03-12 20:16 | Progress Note ---
DATE: 03/12/2019 SUBJECTIVE: Resting comfortably in bed. Has not received much in the way of pain medicine. OBJECTIVE: He is afebrile. His vital signs are stable. White count normal. Cultures are growing gram positive cocci. Infectious disease is noted. Drain output is 5 mL and it is pulled. Dressing left intact. 1+ dorsalis pedis. Normal sensation, 5/5 ankle and toe plantar flexion and dorsiflexion strength. IMPRESSION: Infected left total knee arthroplasty. PLAN: Continue intravenous antibiotics. We will change dressing tomorrow and work more on PT. I have made contact with the [facility] at [place] to discuss further care. We will coordinate with daughter.
[2019-03-12] MEDS: SENNA 8.6 MG TAB PO SCH (21:24)
[2019-03-12] MEDS: QUETIAPINE FUMARATE 25 MG TABLET PO SCH (21:24)
[2019-03-12] MEDS: DONEPEZIL HCL 5 MG TAB PO SCH (21:25)
[2019-03-13] MEDS: TIOTROPIUM BROMIDE 5 PUFF/90 MCG INH INH SCH (08:43)
[2019-03-13] MEDS: ENOXAPARIN INJ 30 MG/0.3 ML SYR SQ SCH ×2 (08:44→21:38)
[2019-03-13] MEDS: FUROSEMIDE 20 MG TAB PO SCH (08:44)
[2019-03-13] MEDS: ALLOPURINOL 100 MG TAB PO SCH (08:45)
[2019-03-13] MEDS: AMLODIPINE BESYLATE 5 MG TAB PO SCH (08:45)
[2019-03-13] MEDS: METOPROLOL SUCC 50MG EXT REL TAB PO SCH ×2 (08:45→21:40)
[2019-03-13] MEDS: MEMANTINE HCL 10 MG TAB PO SCH (08:45)
[2019-03-13] MEDS: DOCUSATE SODIUM 100 MG CAP PO SCH ×2 (08:46→21:39)
[2019-03-13] MEDS: TAMSULOSIN HCL 0.4 MG CAP PO SCH (08:46)
[2019-03-13] MEDS: LACTOBACILLUS ACIDOPHILUS 1 GM PACK PO SCH ×2 (08:46→21:38)
[2019-03-13] MEDS: rifAMPin 300 MG CAPSULE PO SCH (08:46)
[2019-03-13] MEDS: NYSTATIN POWDER 15GM BTL EXT SCH ×3 (08:47→21:39)
[2019-03-13] MEDS: LORazepam 0.5 MG TAB PO SCH ×2 (09:17→21:37)
[2019-03-13] MEDS: POLYETHYLENE (MIRALAX) 17 GM PACK PO SCH ×4 (09:18→21:39)
[2019-03-13] MEDS ORDERED: VANCOMYCIN TROUGH ONE (09:30)
--- NOTE | 2019-03-13 09:41 | Orthopedic Progress Note ---
Date of Service March 13, 2019 Assessment & Plan (1) Septic joint of left knee joint: POD 2 S/P Left Knee Arthroscopy with I&D on 03-11-[address] Ugalde *Continue ice to knee for pain and swelling *D/C Knee immobilizer for ambulation, WBAT with walker, allowed for full ROM left knee *OT order placed/Continue PT *MRSA nasal swab to be done today. *Continue Vanc per ID; Await cultures *DVT prophylaxis with lovenox; foot pumps; TEDS *Dressings changed today, reinforce/change PRN. *Dr. Ugalde has spoken to [facility] in [place] for transfer of care. They are arranging possible transfer for later today. Patient aware, will also inform daughter. *Dr. Ugalde present for today's visit. Subjective Patient sitting up in bed. Just finished his breakfast. Still pain in left knee. Jose f/c/s, CP, SOB, lightheadedness, N/V. States he has not been out of bed. Knee immobilizer in place left knee. Physical Exam Physical Exam: Left knee dressings removed - incisions clean, dry, intact. No active drainage, small knee effusion. Tolerates gentle active ROM to 60 degrees, able to independently SLR lifting his leg an inch off the bed. No distal edema. Distal pulses, sensation intact. Results & Data Vital Signs (Past 12 Hours) Vital Signs Temp Pulse Resp BP Pulse Ox 03/13/19 06:52 36.9 C 101 H 20 157/95 H 93 03/13/19 00:07 36.8 C 82 16 125/82 92 Laboratory Results Microbiology 03/09/19 16:00 Gram Stain - Final Knee,Left Aerobic and Anaerobic Culture - Preliminary Gram positive cocci MRSA Nasal swab ordered BMP drawn, results pending. (1) Septic joint of left knee joint Septic arthritis organism: due to unspecified organism Qualified Code(s): M00.9 - Pyogenic arthritis, unspecified
[2019-03-13 10:11] LABS: BUN Creatinine Ratio 16.8 (10-20); Calcium 8.8 mg/dl (8.5-10.1); Creatinine Clr Calc Pharmacy 40.1 ml/min; Est GFR (Non-African American) 36.3; Potassium 3.8 mmol/L (3.5-5.1)
[2019-03-13] MEDS: VANCOMYCIN HCL 1,750 MG in SODIUM CHLORIDE 0.9% 500 ML IV SCH (10:11)
--- NOTE | 2019-03-13 10:47 | Pharmacy Report ---
Pharmacy Abx Dose Short Note - Date of Service March 13, 2019 - Assessment & Plan Assessment 88 year old M receiving IV Vancomycin for treatment of septic knee Day # 5 of antimicrobial therapy Knee culture still not final; Gram stain showing GPC Plan Vancomycin * Trough level of 19.7 mcg/mL is therapeutic * Change to 1500 mg IV every 18 hours (given likelihood of continued accumulation in an obese patient) * Goal trough level for bone & joint infection: 15 to 20 mcg/mL * Trough level ordered for: 03/15/19 prior to the 3rd dose Pharmacy will continue to follow and will adjust dose/frequency as necessary. Thank you.
--- NOTE | 2019-03-13 10:58 | Hospitalist Progress Note ---
Date of Service March 13, 2019 Assessment & Plan (1) Septic joint of left knee joint: Hx of L TKA 8 yrs ago, prior recurrent infections - most recent 2 years ago treated with I&D and poly-exchange Presents with acute onset L knee pain and swelling S/P arthroscopic wash out POD #2 - Dr. Ugalde intraop cultures Gram + cocci Continue IV vanco - ID on board appreciate their recs Pain/wound per ortho therapy and activity as directed by ortho Plan is for patient to be transferred to tertiary facility [facility] later today (2) Chronic diastolic CHF (congestive heart failure): Currently euvolemic weight 124.2 kg, order daily weights continue lasix ( previously ordered every other day, now scheduled daily) Postoperatively required Lasix 40mg IV x 1 continue low salt diet (3) Constipation: Had BM x 2 on 03/12 continue bowel regimen (4) HTN (hypertension): blood pressure labile, but mostly controlled continue metoprolol and amlodipine (5) CKD (chronic kidney disease), stage III: baseline ~1.6-1.7 Creat 1.66 today Monitor renal functions Avoid nephrotoxic agents when possible (6) COPD (chronic obstructive pulmonary disease): No acute exac continue home inhalers (7) Nocturnal hypoxemia: continue chronic oxygen. 2-5L via NC HS and 2L prn during the day (8) History of pulmonary embolism: H/O PE s/p IVC Not on any anticoagulation (9) AD (Alzheimer's disease): Continue memantine, donepezil mood stable (10) Mood disorder: Continue Seroquel, Ativan mood stable (11) Gout: Continue allopurinol (12) BPH (benign prostatic hyperplasia): Continue flomax (13) DVT prophylaxis: Lovenox 30 mg SQ twice daily as per orthopedics Patient was seen and examined in collaboration with Dr. Awan, please see addendum Thank you for this consultation. We will follow the patient with you during their hospital stay. You can reach a member of the [facility] Hospitalist Team 07/03 via pager @ [phone]. 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 Follow up L knee septic Arthritis. Per nurse pt had 2 bms yesterday. She offers no concerns. Pt to be transferred to tertiary facility [facility] later today if accepted. Pt complains of L knee stiffness and pain 12/22. Denies f/c/s, chest pain, sob, n/v, abdominal pain. Per nursing diminished po intake with meals but drinking liquids. Review of Systems Review of Systems: As noted per HPI, 10 systems reviewed and negative unless noted above. Physical Exam Physical Exam: Gen: WD/WN, Elderly M, sitting up in bed, pleasant but confused,NAD, A&O x3 HEENT: Normocephalic, atraumatic, conjunctivae moist, sclerae anicteric, mucous membranes moist. Lung: Clear to Auscultation bilaterally, minimal expiratory wheeze, no rales/rhonchi on 2L o2 via NC Heart: Regular rate, regular rhythm, no murmurs, rubs, or gallops Abdomen: obese but Soft, NT, ND +BS x 4 Extremities: LLE dressing CDI, b/l pedal pulse +1 and equal Skin: Warm, no rash, negative turgor. Results & Data Vital Signs (Past 12 Hours) Vital Signs Temp Pulse Resp BP Pulse Ox 03/13/19 06:52 36.9 C 101 H 20 157/95 H 93 03/13/19 00:07 36.8 C 82 16 125/82 92 Laboratory Results Name: LURDES ROSARIO Acct: [id number] [place]: [place] 1930 [facility] [place] [place]: [place]09[place] Age: 88 Sex: M Dis Date: Loc: Medical/Surgical/Ortho [address] [place] Rm/Bed: [facility] Spec: [id number] Collected: 03/09/19-1599 Received: 03/09/19-[address]: Denis Uaglde M.D. Source: Knee,Left OV Order: Ordered: Peripros Cul/Sm Procedure Result Verified Site Gram Stain Final 03/10/19-636 Gram Stain Result Many Polys Moderate Gram Positive Cocci Periprosthetic Cult Preliminary 03/13/19-1053 Organism 1 Gram positive cocci Quantity Moderate Sens Sensitivities Dependent on Further Identification Medications Administered Acetaminophen (Tylenol) 500 mg PO Q6H PRN PRN Reason: Pain Stop: 04/08/19 17:37 Last Admin: 03/11/19 18:20 Dose: 500 mg Documented by: [id number] Admin: 03/10/19 07:57 Dose: 500 mg Documented by: [id number] Admin: 03/10/19 00:07 Dose: 500 mg Documented by: [id number] Allopurinol (Zyloprim) 200 mg PO [facility] Stop: 04/09/19 08:59 Last Admin: 03/13/19 08:45 Dose: 200 mg Documented by: [id number] Admin: 03/12/19 09:32 Dose: 200 mg Documented by: [id number] Cosigned by: [id number] Admin: 03/11/19 14:12 Dose: 200 mg Documented by: [id number] Admin: 03/10/19 08:01 Dose: 200 mg Documented by: [id number] Amlodipine Besylate (Norvasc) 2.5 mg PO [facility] Stop: 04/09/19 08:59 Last Admin: 03/13/19 08:45 Dose: 2.5 mg Documented by: [id number] Admin: 03/12/19 09:20 Dose: 2.5 mg Documented by: [id number] Cosigned by: [id number] Admin: 03/11/19 14:11 Dose: 2.5 mg Documented by: [id number] Admin: 03/10/19 08:01 Dose: 2.5 mg Documented by: [id number] Aspirin (Ecotrin Ectab) 81 mg PO [facility] Stop: 04/09/19 08:59 Last Admin: 03/10/19 07:58 Dose: 81 mg Documented by: [id number] Bisacodyl (Dulcolax) 10 mg IN DAILY PRN PRN Reason: Constipation Stop: 04/10/19 09:54 Last Admin: 03/12/19 16:44 Dose: 10 mg Documented by: [id number] Docusate Sodium (Colace) 100 mg PO BID [facility] Stop: 04/10/19 20:59 Last Admin: 03/13/19 08:46 Dose: 100 mg Documented by: [id number] Admin: 03/12/19 21:24 Dose: 100 mg Documented by: [id number] Admin: 03/12/19 09:14 Dose: 100 mg Documented by: [id number] Cosigned by: [id number] Admin: 03/11/19 20:03 Dose: 100 mg Documented by: [id number] Donepezil HCl (Aricept) 5 mg PO HS [facility] Stop: 04/08/19 20:59 Last Admin: 03/12/19 21:25 Dose: 5 mg Documented by: [id number] Admin: 03/11/19 20:04 Dose: 5 mg Documented by: [id number] Admin: 03/10/19 20:42 Dose: 5 mg Documented by: [id number] Admin: 03/09/19 21:02 Dose: 5 mg Documented by: [id number] Enoxaparin Sodium (Lovenox) 30 mg SQ Q12H [facility] Stop: 04/10/19 21:29 Last Admin: 03/13/19 08:44 Dose: 30 mg Documented by: [id number] Admin: 03/12/19 21:26 Dose: 30 mg Documented by: [id number] Admin: 03/12/19 09:30 Dose: 30 mg Documented by: [id number] Cosigned by: [id number] Admin: 03/11/19 21:26 Dose: 30 mg Documented by: [id number] Furosemide (Lasix) 20 mg PO DAILY [facility] Stop: 04/11/19 08:59 Last Admin: 03/13/19 08:44 Dose: 20 mg Documented by: [id number] Admin: 03/12/19 09:17 Dose: 20 mg Documented by: [id number] Cosigned by: [id number] Vancomycin HCl 1,750 mg/ (Sodium Chloride) 535 mls @ 200 mls/hr IV Q18H [facility] Stop: 03/13/19 14:00 Last Admin: 03/13/19 10:11 Dose: 200 mls/hr Documented by: [id number] Infusion: 03/12/19 19:05 Dose: 0 mls/hr Documented by: [id number] Admin: 03/12/19 16:01 Dose: 200 mls/hr Documented by: [id number] Infusion: 03/12/19 00:15 Dose: 0 mls/hr Documented by: [id number] Admin: 03/11/19 21:26 Dose: 200 mls/hr Documented by: [id number] Infusion: 03/11/19 15:10 Dose: 0 mls/hr Documented by: [id number] Admin: 03/11/19 05:10 Dose: 200 mls/hr Documented by: [id number] Infusion: 03/10/19 13:38 Dose: 0 mls/hr Documented by: [id number] Admin: 03/10/19 10:44 Dose: 200 mls/hr Documented by: [id number] Lactobacillus Acidophilus (Floranex Granules/Powder Packet) 1 gm PO BID [facility] Stop: 04/08/19 20:59 Last Admin: 03/13/19 08:46 Dose: 1 gm Documented by: [id number] Admin: 03/12/19 21:24 Dose: 1 gm Documented by: [id number] Admin: 03/12/19 09:15 Dose: 1 gm Documented by: [id number] Cosigned by: [id number] Admin: 03/11/19 20:04 Dose: 1 gm Documented by: [id number] Admin: 03/11/19 14:16 Dose: 1 gm Documented by: [id number] Admin: 03/10/19 20:42 Dose: 1 gm Documented by: [id number] Admin: 03/10/19 09:52 Dose: 1 gm Documented by: [id number] Admin: 03/09/19 21:02 Dose: 1 gm Documented by: [id number] Lorazepam (Ativan) 0.25 mg PO QAM [facility] Stop: 04/09/19 08:59 Last Admin: 03/13/19 09:17 Dose: 0.25 mg Documented by: [id number] Admin: 03/12/19 09:12 Dose: 0.25 mg Documented by: [id number] Cosigned by: [id number] Admin: 03/11/19 14:08 Dose: 0.25 mg Documented by: [id number] Admin: 03/10/19 09:52 Dose: 0.25 mg Documented by: [id number] Lorazepam (Ativan) 0.5 mg PO HS [facility] Stop: 04/08/19 20:59 Last Admin: 03/12/19 21:23 Dose: 0.5 mg Documented by: [id number] Admin: 03/11/19 20:04 Dose: 0.5 mg Documented by: [id number] Admin: 03/10/19 20:42 Dose: 0.5 mg Documented by: [id number] Admin: 03/09/19 21:24 Dose: 0.5 mg Documented by: [id number] Memantine (Namenda) 10 mg PO QAM [facility] Stop: 04/09/19 08:59 Last Admin: 03/13/19 08:45 Dose: 10 mg Documented by: [id number] Admin: 03/12/19 09:19 Dose: 10 mg Documented by: [id number] Cosigned by: [id number] Admin: 03/11/19 14:11 Dose: 10 mg Documented by: [id number] Admin: 03/10/19 07:59 Dose: 10 mg Documented by: [id number] Metoprolol Succinate (Toprol Xl) 50 mg PO BID [facility] Stop: 04/08/19 20:59 Last Admin: 03/13/19 08:45 Dose: 50 mg Documented by: [id number] Admin: 03/12/19 21:25 Dose: 50 mg Documented by: [id number] Admin: 03/12/19 09:29 Dose: 50 mg Documented by: [id number] Cosigned by: [id number] Admin: 03/11/19 20:03 Dose: 50 mg Documented by: [id number] Admin: 03/11/19 14:14 Dose: 50 mg Documented by: [id number] Admin: 03/10/19 20:42 Dose: 50 mg Documented by: [id number] Admin: 03/10/19 09:53 Dose: 50 mg Documented by: [id number] Admin: 03/09/19 21:02 Dose: 50 mg Documented by: [id number] Miscellaneous (Order Awaiting Action) 1 ea N/A QS [facility] Stop: 04/09/19 00:00 Last Admin: 03/13/19 08:47 Dose: Not Given Documented by: [id number] Admin: 03/12/19 21:34 Dose: Not Given Documented by: [id number] Admin: 03/12/19 16:02 Dose: Not Given Documented by: [id number] Admin: 03/12/19 09:50 Dose: Not Given Documented by: [id number] Admin: 03/11/19 23:30 Dose: Not Given Documented by: [id number] Admin: 03/11/19 15:49 Dose: Not Given Documented by: [id number] Admin: 03/11/19 14:30 Dose: Not Given Documented by: [id number] Admin: 03/10/19 23:30 Dose: Not Given Documented by: [id number] Admin: 03/10/19 15:53 Dose: Not Given Documented by: [id number] Admin: 03/10/19 09:56 Dose: Not Given Documented by: [id number] Admin: 03/09/19 22:48 Dose: Not Given Documented by: [id number] Nystatin (Mycostatin) 1 appln EXT TID [facility] Stop: 04/08/19 20:59 Last Admin: 03/13/19 08:47 Dose: 1 appln Documented by: [id number] Admin: 03/12/19 21:23 Dose: 1 appln Documented by: [id number] Admin: 03/12/19 14:40 Dose: 1 appln Documented by: [id number] Admin: 03/12/19 09:18 Dose: 1 appln Documented by: [id number] Cosigned by: [id number] Admin: 03/11/19 20:04 Dose: 1 appln Documented by: [id number] Admin: 03/11/19 14:30 Dose: 1 appln Documented by: [id number] Admin: 03/11/19 14:11 Dose: Not Given Documented by: [id number] Admin: 03/10/19 20:41 Dose: 1 appln Documented by: [id number] Admin: 03/10/19 13:24 Dose: Not Given Documented by: [id number] Admin: 03/10/19 13:24 Dose: Not Given Documented by: [id number] Admin: 03/09/19 21:02 Dose: 1 appln Documented by: [id number] Ondansetron HCl (Zofran) 4 mg IV Q6H PRN PRN Reason: Nausea And Vomiting Stop: 04/10/19 09:54 Last Admin: 03/12/19 09:50 Dose: 4 mg Documented by: [id number] Admin: 03/11/19 18:20 Dose: 4 mg Documented by: [id number] Oxycodone HCl (Roxicodone Immediate Rel) 5 - 10 mg PO Q4H PRN PRN Reason: Pain Stop: 03/25/19 09:54 Last Admin: 03/12/19 03:05 Dose: 10 mg Documented by: [id number] Polyethylene Glycol (Miralax Powder Packet) 17 gm PO QID [facility] Stop: 04/11/19 12:59 Last Admin: 03/13/19 09:18 Dose: Not Given Documented by: [id number] Admin: 03/12/19 21:34 Dose: 17 gm Documented by: [id number] Admin: 03/12/19 18:11 Dose: Not Given Documented by: [id number] Admin: 03/12/19 13:47 Dose: 17 gm Documented by: [id number] Cosigned by: [id number] Potassium Chloride (Klor-Con M10) 20 meq PO MoWeFr@0900 [facility] Stop: 04/08/19 17:37 Last Admin: 03/12/19 09:16 Dose: 20 meq Documented by: [id number] Cosigned by: [id number] Admin: 03/09/19 19:34 Dose: 20 meq Documented by: [id number] Quetiapine Fumarate (Seroquel) 75 mg PO [facility] Stop: 04/08/19 20:59 Last Admin: 03/12/19 21:24 Dose: 75 mg Documented by: [id number] Admin: 03/11/19 20:03 Dose: 75 mg Documented by: [id number] Admin: 03/10/19 20:42 Dose: 75 mg Documented by: [id number] Admin: 03/09/19 21:02 Dose: 75 mg Documented by: [id number] Ranitidine HCl (Zantac) 300 mg PO [facility] Stop: 04/08/19 20:59 Last Admin: 03/12/19 21:25 Dose: 300 mg Documented by: [id number] Admin: 03/11/19 20:03 Dose: 300 mg Documented by: [id number] Admin: 03/10/19 20:42 Dose: 300 mg Documented by: [id number] Admin: 03/09/19 21:02 Dose: 300 mg Documented by: [id number] Rifampin (Rifampin) 600 mg PO [facility] Stop: 04/20/19 17:37 Last Admin: 03/13/19 08:46 Dose: 600 mg Documented by: [id number] Admin: 03/12/19 09:31 Dose: 600 mg Documented by: [id number] Cosigned by: [id number] Admin: 03/11/19 14:14 Dose: 600 mg Documented by: [id number] Admin: 03/10/19 09:53 Dose: 600 mg Documented by: [id number] Admin: 03/09/19 19:35 Dose: 600 mg Documented by: [id number] Sennosides (Senokot) 17.2 mg PO HS [facility] Stop: 04/10/19 20:59 Last Admin: 03/12/19 21:24 Dose: 17.2 mg Documented by: [id number] Admin: 03/11/19 20:03 Dose: 17.2 mg Documented by: [id number] Tamsulosin HCl (Flomax) 0.4 mg PO DAILY [facility] Stop: 04/09/19 08:59 Last Admin: 03/13/19 08:46 Dose: 0.4 mg Documented by: [id number] Admin: 03/12/19 09:15 Dose: 0.4 mg Documented by: [id number] Cosigned by: [id number] Admin: 03/11/19 14:10 Dose: 0.4 mg Documented by: [id number] Admin: 03/10/19 07:59 Dose: 0.4 mg Documented by: [id number] Tiotropium [place] (Spiriva) 1 puffs INH QAM [facility] Stop: 04/09/19 08:59 Last Admin: 03/13/19 08:43 Dose: 1 puffs Documented by: [id number] Admin: 03/12/19 09:22 Dose: 1 puffs Documented by: [id number] Cosigned by: [id number] Admin: 03/11/19 14:15 Dose: 1 puffs Documented by: [id number] Admin: 03/10/19 09:54 Dose: 1 puffs Documented by: [id number] Discontinued Medications Albuterol (Duoneb) 3 ml NEB NOW STA Stop: 03/09/19 14:52 Last Admin: 03/09/19 15:08 Dose: 3 ml Documented by: [id number] Albuterol (Duoneb) 3 ml NEB Q4R [facility] Stop: 04/09/19 19:59 Last Admin: 03/12/19 15:17 Dose: 3 ml Documented by: [id number] Admin: 03/12/19 11:21 Dose: Not Given Documented by: [id number] Admin: 03/12/19 07:08 Dose: Not Given Documented by: [id number] Admin: 03/12/19 04:45 Dose: 3 ml Documented by: [id number] Admin: 03/11/19 23:47 Dose: 3 ml Documented by: [id number] Admin: 03/11/19 19:08 Dose: 3 ml Documented by: [id number] Admin: 03/11/19 15:07 Dose: 3 ml Documented by: [id number] Admin: 03/11/19 11:32 Dose: 3 ml Documented by: [id number] Admin: 03/11/19 07:40 Dose: 3 ml Documented by: [id number] Admin: 03/11/19 07:37 Dose: Not Given Documented by: [id number] Admin: 03/11/19 03:51 Dose: 3 ml Documented by: [id number] Admin: 03/10/19 23:33 Dose: 3 ml Documented by: [id number] Admin: 03/10/19 19:43 Dose: 3 ml Documented by: [id number] Albuterol (Duoneb) 3 ml NEB NOW STA Stop: 03/11/19 07:20 Last Admin: 03/11/19 07:40 Dose: Not Given Documented by: [id number] Ciprofloxacin (Cipro) 500 mg PO Q12H [facility] Stop: 04/20/19 19:59 Last Admin: 03/11/19 14:10 Dose: 500 mg Documented by: [id number] Admin: 03/10/19 20:42 Dose: 500 mg Documented by: [id number] Admin: 03/10/19 09:52 Dose: 500 mg Documented by: [id number] Admin: 03/09/19 21:24 Dose: 500 mg Documented by: [id number] Epinephrine HCl (Epinephrine) Confirm Administered Dose 5 mg .ROUTE .STK-MED ONE Stop: 03/11/19 07:13 Last Admin: 03/11/19 08:34 Dose: 2 mg Documented by: [id number] Furosemide (Lasix) 20 mg PO MoWeFr@0900 [facility] Stop: 04/08/19 17:37 Last Admin: 03/09/19 19:34 Dose: 20 mg Documented by: [id number] Furosemide (Lasix) 40 mg IV ONE ONE Stop: 03/11/19 16:11 Last Admin: 03/11/19 17:33 Dose: 40 mg Documented by: [id number] Vancomycin HCl 2,750 mg/ (Sodium Chloride) 555 mls @ 200 mls/hr IV NOW ONE; Protocol Stop: 03/09/19 21:16 Last Infusion: 03/09/19 22:25 Dose: 0 mls/hr Documented by: [id number] Admin: 03/09/19 19:35 Dose: 200 mls/hr Documented by: [id number] Dextrose/Sodium Chloride (D5w And Nss) 1,000 mls @ 80 mls/hr IV .[id number] [facility] Stop: 04/09/19 16:59 Last Infusion: 03/10/19 18:24 Dose: 0 mls/hr Documented by: [id number] Admin: 03/10/19 17:06 Dose: 80 mls/hr Documented by: [id number] Sodium Chloride (Nss 1000ml) 1,000 mls @ 100 mls/hr IV .Q10H [facility] Stop: 03/12/19 06:00 Last Admin: 03/11/19 14:30 Dose: Not Given Documented by: [id number] Lidocaine/Epinephrine (Xylocaine/Epinephrine 1%) Confirm Administered Dose 20 ml .ROUTE .STK-MED ONE Stop: 03/11/19 07:12 Last Admin: 03/11/19 08:47 Dose: 20 ml Documented by: [id number] Ondansetron HCl (Zofran) 4 mg IV ONCE PRN PRN Reason: PACU Use Only-Nausea/Vomiting Stop: 03/11/19 12:24 Last Admin: 03/11/19 09:34 Dose: 4 mg Documented by: [id number] Ondansetron HCl (Zofran) Confirm Administered Dose 4 mg .ROUTE .STK-MED ONE Stop: 03/11/19 09:33 Last Admin: 03/11/19 14:30 Dose: Not Given Documented by: [id number] Polyethylene Glycol (Miralax Powder Packet) 17 gm PO BID [facility] Stop: 04/11/19 12:29 Last Admin: 03/12/19 12:58 Dose: Not Given Documented by: [id number] (1) BPH (benign prostatic hyperplasia) Lower urinary tract symptom detail: unspecified (2) Gout Chronicity: unspecified Gout etiology: unspecified cause Gout site: unspecified site Qualified Code(s): M10.9 - Gout, unspecified (3) AD (Alzheimer's disease) Alzheimer's disease onset: unspecified onset (4) COPD (chronic obstructive pulmonary disease) COPD type: unspecified COPD Qualified Code(s): J44.9 - Chronic obstructive pulmonary disease, unspecified (5) Septic joint of left knee joint Septic arthritis organism: due to unspecified organism Qualified Code(s): M00.9 - Pyogenic arthritis, unspecified
[2019-03-13] MEDS ORDERED: cloNIDine HCl 0.1 MG TAB PO ONE (16:27)
[2019-03-13] MEDS: ACETAMINOPHEN 500 MG TAB PO PRN (21:37)
[2019-03-13] MEDS: DONEPEZIL HCL 5 MG TAB PO SCH (21:40)
[2019-03-13] MEDS: SENNA 8.6 MG TAB PO SCH (21:40)
[2019-03-13] MEDS: QUETIAPINE FUMARATE 25 MG TABLET PO SCH (21:41)
[2019-03-14] MEDS ORDERED: cloNIDine HCl 0.1 MG TAB PO ONE (03:38)
[2019-03-14] MEDS ORDERED: VANCOMYCIN HCL 1,500 MG in SODIUM CHLORIDE 0.9% 500 ML IV SCH (04:00)
[2019-03-14 07:40] LABS: Creatinine Clr Calc Pharmacy 49.7 ml/min; Est GFR (African American) 54.4
[2019-03-14] MEDS: TIOTROPIUM BROMIDE 5 PUFF/90 MCG INH INH SCH (08:45)
[2019-03-14] MEDS: ENOXAPARIN INJ 30 MG/0.3 ML SYR SQ SCH (08:46)
[2019-03-14] MEDS: MEMANTINE HCL 10 MG TAB PO SCH (08:46)
[2019-03-14] MEDS: POTASSIUM CHLORIDE 10 MEQ TABCR PO SCH (08:47)
[2019-03-14] MEDS: LACTOBACILLUS ACIDOPHILUS 1 GM PACK PO SCH (08:47)
[2019-03-14] MEDS: DOCUSATE SODIUM 100 MG CAP PO SCH (08:48)
[2019-03-14] MEDS: TAMSULOSIN HCL 0.4 MG CAP PO SCH (08:48)
[2019-03-14] MEDS: FUROSEMIDE 20 MG TAB PO SCH (08:48)
[2019-03-14] MEDS: rifAMPin 300 MG CAPSULE PO SCH (08:48)
[2019-03-14] MEDS: POLYETHYLENE (MIRALAX) 17 GM PACK PO SCH (08:49)
[2019-03-14] MEDS: NYSTATIN POWDER 15GM BTL EXT SCH ×2 (08:49→13:40)
[2019-03-14] MEDS: ALLOPURINOL 100 MG TAB PO SCH (08:49)
[2019-03-14] MEDS: AMLODIPINE BESYLATE 5 MG TAB PO SCH (08:49)
[2019-03-14] MEDS: ACETAMINOPHEN 500 MG TAB PO PRN (09:17)
[2019-03-14] MEDS: LORazepam 0.5 MG TAB PO SCH (09:17)
[2019-03-14] MEDS ORDERED: ALBUT/IPRATROP 3MG/0.5MG NEB 3 ML VIAL NEB STA (09:39)
--- NOTE | 2019-03-14 09:45 | Hospitalist Progress Note ---
Date of Service March 14, 2019 Assessment & Plan (1) Septic joint of left knee joint: Hx of L TKA 8 yrs ago, prior recurrent infections - most recent 2 years ago treated with I&D and poly-exchange Presents with acute onset L knee pain and swelling S/P arthroscopic wash out POD #3 - Dr. Ugalde intraop cultures Gram + cocci Continue IV vanco Day 5 -Goal trough level for Infected knee hardware: 15 to 20 mcg/mL Pain/wound per ortho therapy and activity as directed by ortho Pt was to be discharged [place] [facility] yesterday but unable due to insurance Plan is for patient to be transferred to tertiary [facility]2) Chronic diastolic CHF (congestive heart failure): Currently euvolemic weight 124.7 kg, daily weights continue lasix ( previously ordered every other day, now scheduled daily) Postoperatively required Lasix 40mg IV x 1 continue low salt diet and metoprolol (3) Constipation: Had BM x 2 on 03/12 now with frequent loose BM and crampy abdominal pain D/C Miralax QID and place senna/colace on hold would recommend resuming colace bid to prevent constipation when loose BM cease (4) HTN (hypertension): blood pressure labile, especially in evening requiring prn catapress Titrate amlodipine from 2.5mg to 5mg daily continue metoprolol and lasix (5) CKD (chronic kidney disease), stage III: baseline ~1.6-1.7 Creat 1.34 today Monitor renal functions while on IV vanco Avoid nephrotoxic agents when possible (6) COPD (chronic obstructive pulmonary disease): No acute exac, pt with mild wheezing this am. Duoneb ordered x 1 and then prn continue home inhalers (7) Nocturnal hypoxemia: continue chronic oxygen. 2-5L via NC HS and 2L prn during the day (8) History of pulmonary embolism: H/O PE s/p IVC Not on any anticoagulation (9) AD (Alzheimer's disease): Continue memantine, donepezil mood stable (10) Mood disorder: Continue Seroquel, Ativan mood stable (11) Gout: Continue allopurinol (12) BPH (benign prostatic hyperplasia): Continue flomax (13) DVT prophylaxis: Lovenox 30 mg SQ twice daily as per orthopedics Patient was seen and examined in collaboration with Dr. Milian, please see addendum Thank you for this consultation. We will follow the patient with you during their hospital stay. You can reach a member of the [facility] Hospitalist Team 07/03 via pager @ [phone]. Supervising Physician Co-Signing Physician Notes I have seen and examined the patient and have discussed the case with the provider above. I agree with the assessment and plan as stated with the following exceptions. 88 yo M presented with a L septic knee arthritis, which is growing GPC with speciation still pending. He is being transferred to [facility] for infected knee hardware removal and transfer is currently in progress. Today, he is sneezing and producing copious amounts of sputum and reporting malaise for the past two days. He has been coughing, also. On exam he is slightly tachycardic and has profuse wheezing throughout all lungs. S1/2 heard on auscultation with a tachy rate and regular rhythm. There is no edema on exam. Abdomen is soft and nontender. Findings are consistent with a COPD exacerbation and he was started on prednisone 40mg and Levaquin 500mg PO. Oral meds were given in lieu of IV, so as to not hold up his transfer to [facility], which is in progress. Nebs were scheduled, and he reports feeling better after the Duoneb treatment given this morning. This new development was communicated to both Dr. Ugalde and the accepting Hospitalist at [facility]. DO Taina Milian Patient was seen and examined in room 350-2. Follow up L knee septic Arthritis. Per nurse patient with frequent loose BMs and states she is currently holding bowel regimen. Pt complains of nausea, freq bowel movements with crampy abdominal pain that improves with BM. He ate breakfast this morning. Denies f/c/s, chest pain, sob, emesis, melena, hematochezia. He complains of wheezing, but states this is chronic for him. Pt was declined at [facility] but has been accepted to [facility]. Pt complains of L knee stiffness and pain 12/22. Review of Systems Review of Systems: As noted per HPI, 10 systems reviewed and negative unless noted above. Physical Exam Physical Exam: Gen: WD/WN, Elderly M, sitting up in bed, pleasant but confused,NAD, A&O x3 HEENT: Normocephalic, atraumatic, conjunctivae moist, sclerae anicteric, mucous membranes moist. Lung: Clear to Auscultation bilaterally, minimal expiratory wheeze b/l, no rales/rhonchi on 3L o2 via NC Heart: Regular rate, regular rhythm, no murmurs, rubs, or gallops Abdomen: obese protuberant abdomen, firm, NT, ND +BS x 4 Extremities: LLE dressing CDI, b/l pedal pulse +1 and equal Skin: Warm, no rash, negative turgor. Results & Data Vital Signs (Past 12 Hours) Vital Signs Temp Pulse Pulse Resp BP BP Pulse Ox 03/14/19 07:47 36.9 C 87 18 148/98 H 96 03/14/19 04:35 140/94 03/14/19 03:33 36.9 C 102 H 20 172/109 H 93 Laboratory Results Short CBC 03/09/19 03/10/19 03/11/19 Range/Units 13:15 08:19 05:16 BUN 25 H 26 H 25 H (7-18) mg/dl Creatinine 1.78 H 1.82 H 1.69 H (0.6-1.4) mg/dl 03/12/19 03/13/19 03/14/19 Range/Units 06:27 09:36 06:44 BUN 25 H 28 H (7-18) mg/dl Creatinine 1.77 H 1.66 H 1.34 D (0.6-1.4) mg/dl BMP 03/13/19 03/14/19 09:36 06:44 Sodium 138 Potassium 3.8 Chloride 103 Carbon Dioxide 30 BUN 28 H Creatinine 1.66 H 1.34 D Glucose 105 H Calcium 8.8 Name: LURDES ROSARIO Acct: [id number] Status: ADM [place] : 1930 [facility] [place]/09/19 Age: 88 Sex: M Dis Date: Loc: Medical/Surgical/Ortho 3 [facility]/Bed: [facility] Spec: [id number] Collected: 03/09/19-1599 Received: 03/09/19-[address]: Denis Ugalde M.D. Source: Knee,Left OV Order: Ordered: Peripros Cul/Sm Procedure Result Verified Site Gram Stain Final 03/10/19-636 Gram Stain Result Many Polys Moderate Gram Positive Cocci Periprosthetic Cult Preliminary 03/13/19-1452 Organism 1 Anaerobic gram positive cocci Quantity Moderate Sens No Sensitivities to Follow Diagnostic Findings Acetaminophen (Tylenol) 500 mg PO Q6H PRN PRN Reason: Pain Stop: 04/08/19 17:37 Last Admin: 03/14/19 09:17 Dose: 500 mg Documented by: [id number] Admin: 03/13/19 21:37 Dose: 500 mg Documented by: [id number] Admin: 03/11/19 18:20 Dose: 500 mg Documented by: [id number] Admin: 03/10/19 07:57 Dose: 500 mg Documented by: [id number] Admin: 03/10/19 00:07 Dose: 500 mg Documented by: [id number] Allopurinol (Zyloprim) 200 mg PO [facility] Stop: 04/09/19 08:59 Last Admin: 03/14/19 08:49 Dose: 200 mg Documented by: [id number] Admin: 03/13/19 08:45 Dose: 200 mg Documented by: [id number] Admin: 03/12/19 09:32 Dose: 200 mg Documented by: [id number] Cosigned by: [id number] Admin: 03/11/19 14:12 Dose: 200 mg Documented by: [id number] Admin: 03/10/19 08:01 Dose: 200 mg Documented by: [id number] Amlodipine Besylate (Norvasc) 2.5 mg PO [facility] Stop: 04/09/19 08:59 Last Admin: 03/14/19 08:49 Dose: 2.5 mg Documented by: [id number] Admin: 03/13/19 08:45 Dose: 2.5 mg Documented by: [id number] Admin: 03/12/19 09:20 Dose: 2.5 mg Documented by: [id number] Cosigned by: [id number] Admin: 03/11/19 14:11 Dose: 2.5 mg Documented by: [id number] Admin: 03/10/19 08:01 Dose: 2.5 mg Documented by: [id number] [facility]) [facility] [place]: 04/09/19 08:59 Last Admin: 03/10/19 07:58 Dose: 81 mg Documented by: [id number] Bisacodyl (Dulcolax) 10 mg DC DAILY PRN PRN Reason: Constipation Stop: 04/10/19 09:54 Last Admin: 03/12/19 16:44 Dose: 10 mg Documented by: [id number] Docusate Sodium (Colace) 100 mg PO BID [facility] Stop: 04/10/19 20:59 Last Admin: 03/14/19 08:48 Dose: 100 mg Documented by: [id number] Admin: 03/13/19 21:39 Dose: 100 mg Documented by: [id number] Admin: 03/13/19 08:46 Dose: 100 mg Documented by: [id number] Admin: 03/12/19 21:24 Dose: 100 mg Documented by: [id number] Admin: 03/12/19 09:14 Dose: 100 mg Documented by: [id number] Cosigned by: [id number] Admin: 03/11/19 20:03 Dose: 100 mg Documented by: [id number] Donepezil HCl (Aricept) 5 mg PO HS [facility] Stop: 04/08/19 20:59 Last Admin: 03/13/19 21:40 Dose: 5 mg Documented by: [id number] Admin: 03/12/19 21:25 Dose: 5 mg Documented by: [id number] Admin: 03/11/19 20:04 Dose: 5 mg Documented by: [id number] Admin: 03/10/19 20:42 Dose: 5 mg Documented by: [id number] Admin: 03/09/19 21:02 Dose: 5 mg Documented by: [id number] Enoxaparin Sodium (Lovenox) 30 mg SQ Q12H [facility] Stop: 04/10/19 21:29 Last Admin: 03/14/19 08:46 Dose: 30 mg Documented by: [id number] Admin: 03/13/19 21:38 Dose: 30 mg Documented by: [id number] Admin: 03/13/19 08:44 Dose: 30 mg Documented by: [id number] Admin: 03/12/19 21:26 Dose: 30 mg Documented by: [id number] Admin: 03/12/19 09:30 Dose: 30 mg Documented by: [id number] Cosigned by: [id number] Admin: 03/11/19 21:26 Dose: 30 mg Documented by: [id number] Furosemide (Lasix) 20 mg PO DAILY [facility] Stop: 04/11/19 08:59 Last Admin: 03/14/19 08:48 Dose: 20 mg Documented by: [id number] Admin: 03/13/19 08:44 Dose: 20 mg Documented by: [id number] Admin: 03/12/19 09:17 Dose: 20 mg Documented by: [id number] Cosigned by: [id number] Vancomycin HCl 1,500 mg/ (Sodium Chloride) 530 mls @ 200 mls/hr IV Q18H [facility]; Protocol Stop: 04/21/19 23:59 Last Infusion: 03/14/19 06:25 Dose: 0 mls/hr Documented by: [id number] Admin: 03/14/19 03:28 Dose: 200 mls/hr Documented by: [id number] Lactobacillus Acidophilus (Floranex Granules/Powder Packet) 1 gm PO BID [facility] Stop: 04/08/19 20:59 Last Admin: 03/14/19 08:47 Dose: 1 gm Documented by: [id number] Admin: 03/13/19 21:38 Dose: 1 gm Documented by: [id number] Admin: 03/13/19 08:46 Dose: 1 gm Documented by: [id number] Admin: 03/12/19 21:24 Dose: 1 gm Documented by: [id number] Admin: 03/12/19 09:15 Dose: 1 gm Documented by: [id number] Cosigned by: [id number] Admin: 03/11/19 20:04 Dose: 1 gm Documented by: [id number] Admin: 03/11/19 14:16 Dose: 1 gm Documented by: [id number] Admin: 03/10/19 20:42 Dose: 1 gm Documented by: [id number] Admin: 03/10/19 09:52 Dose: 1 gm Documented by: [id number] Admin: 03/09/19 21:02 Dose: 1 gm Documented by: [id number] Lorazepam (Ativan) 0.25 mg PO QAM [facility] Stop: 04/09/19 08:59 Last Admin: 03/14/19 09:17 Dose: 0.25 mg Documented by: [id number] Admin: 03/13/19 09:17 Dose: 0.25 mg Documented by: [id number] Admin: 03/12/19 09:12 Dose: 0.25 mg Documented by: [id number] Cosigned by: [id number] Admin: 03/11/19 14:08 Dose: 0.25 mg Documented by: [id number] Admin: 03/10/19 09:52 Dose: 0.25 mg Documented by: [id number] Lorazepam (Ativan) 0.5 mg PO HS [facility] Stop: 04/08/19 20:59 Last Admin: 03/13/19 21:37 Dose: 0.5 mg Documented by: [id number] Admin: 03/12/19 21:23 Dose: 0.5 mg Documented by: [id number] Admin: 03/11/19 20:04 Dose: 0.5 mg Documented by: [id number] Admin: 03/10/19 20:42 Dose: 0.5 mg Documented by: [id number] Admin: 03/09/19 21:24 Dose: 0.5 mg Documented by: [id number] Magnesium Hydroxide (Milk Of Magnesia) 30 ml PO Q6H PRN PRN Reason: Constipation Stop: 04/10/19 09:54 Last Admin: 03/13/19 21:43 Dose: 30 ml Documented by: [id number] Memantine (Namenda) 10 mg PO QAM [facility] Stop: 04/09/19 08:59 Last Admin: 03/14/19 08:46 Dose: 10 mg Documented by: [id number] Admin: 03/13/19 08:45 Dose: 10 mg Documented by: [id number] Admin: 03/12/19 09:19 Dose: 10 mg Documented by: [id number] Cosigned by: [id number] Admin: 03/11/19 14:11 Dose: 10 mg Documented by: [id number] Admin: 03/10/19 07:59 Dose: 10 mg Documented by: [id number] Metoprolol Succinate (Toprol Xl) 50 mg PO BID [facility] Stop: 04/08/19 20:59 Last Admin: 03/13/19 21:40 Dose: 50 mg Documented by: [id number] Admin: 03/13/19 08:45 Dose: 50 mg Documented by: [id number] Admin: 03/12/19 21:25 Dose: 50 mg Documented by: [id number] Admin: 03/12/19 09:29 Dose: 50 mg Documented by: [id number] Cosigned by: [id number] Admin: 03/11/19 20:03 Dose: 50 mg Documented by: [id number] Admin: 03/11/19 14:14 Dose: 50 mg Documented by: [id number] Admin: 03/10/19 20:42 Dose: 50 mg Documented by: [id number] Admin: 03/10/19 09:53 Dose: 50 mg Documented by: [id number] Admin: 03/09/19 21:02 Dose: 50 mg Documented by: [id number] Miscellaneous (Order Awaiting Action) 1 ea N/A QS [facility] Stop: 04/09/19 00:00 Last Admin: 03/14/19 08:45 Dose: Not Given Documented by: [id number] Admin: 03/13/19 22:09 Dose: Not Given Documented by: [id number] Admin: 03/13/19 16:52 Dose: Not Given Documented by: [id number] Admin: 03/13/19 08:47 Dose: Not Given Documented by: [id number] Admin: 03/12/19 21:34 Dose: Not Given Documented by: [id number] Admin: 03/12/19 16:02 Dose: Not Given Documented by: [id number] Admin: 03/12/19 09:50 Dose: Not Given Documented by: [id number] Admin: 03/11/19 23:30 Dose: Not Given Documented by: [id number] Admin: 03/11/19 15:49 Dose: Not Given Documented by: [id number] Admin: 03/11/19 14:30 Dose: Not Given Documented by: [id number] Admin: 03/10/19 23:30 Dose: Not Given Documented by: [id number] Admin: 03/10/19 15:53 Dose: Not Given Documented by: [id number] Admin: 03/10/19 09:56 Dose: Not Given Documented by: [id number] Admin: 03/09/19 22:48 Dose: Not Given Documented by: [id number] Nystatin (Mycostatin) 1 appln EXT TID [facility] Stop: 04/08/19 20:59 Last Admin: 03/14/19 08:49 Dose: 1 appln Documented by: [id number] Admin: 03/13/19 21:39 Dose: 1 appln Documented by: [id number] Admin: 03/13/19 13:24 Dose: 1 appln Documented by: [id number] Admin: 03/13/19 08:47 Dose: 1 appln Documented by: [id number] Admin: 03/12/19 21:23 Dose: 1 appln Documented by: [id number] Admin: 03/12/19 14:40 Dose: 1 appln Documented by: [id number] Admin: 03/12/19 09:18 Dose: 1 appln Documented by: [id number] Cosigned by: [id number] Admin: 03/11/19 20:04 Dose: 1 appln Documented by: [id number] Admin: 03/11/19 14:30 Dose: 1 appln Documented by: [id number] Admin: 03/11/19 14:11 Dose: Not Given Documented by: [id number] Admin: 03/10/19 20:41 Dose: 1 appln Documented by: [id number] Admin: 03/10/19 13:24 Dose: Not Given Documented by: [id number] Admin: 03/10/19 13:24 Dose: Not Given Documented by: [id number] Admin: 03/09/19 21:02 Dose: 1 appln Documented by: [id number] Ondansetron HCl (Zofran) 4 mg IV Q6H PRN PRN Reason: Nausea And Vomiting Stop: 04/10/19 09:54 Last Admin: 03/12/19 09:50 Dose: 4 mg Documented by: [id number] Admin: 03/11/19 18:20 Dose: 4 mg Documented by: [id number] Oxycodone HCl (Roxicodone Immediate Rel) 5 - 10 mg PO Q4H PRN PRN Reason: Pain Stop: 03/25/19 09:54 Last Admin: 03/12/19 03:05 Dose: 10 mg Documented by: [id number] Potassium Chloride (Klor-Con M10) 20 meq PO MoWeFr@0900 [facility] Stop: 04/08/19 17:37 Last Admin: 03/14/19 08:47 Dose: 20 meq Documented by: [id number] Admin: 03/12/19 09:16 Dose: 20 meq Documented by: [id number] Cosigned by: [id number] Admin: 03/09/19 19:34 Dose: 20 meq Documented by: [id number] Quetiapine Fumarate (Seroquel) 75 mg PO HS [facility] Stop: 04/08/19 20:59 Last Admin: 03/13/19 21:41 Dose: 75 mg Documented by: [id number] Admin: 03/12/19 21:24 Dose: 75 mg Documented by: [id number] Admin: 03/11/19 20:03 Dose: 75 mg Documented by: [id number] Admin: 03/10/19 20:42 Dose: 75 mg Documented by: [id number] Admin: 03/09/19 21:02 Dose: 75 mg Documented by: [id number] Ranitidine HCl (Zantac) 300 mg PO [facility] Stop: 04/08/19 20:59 Last Admin: 03/13/19 21:40 Dose: 300 mg Documented by: [id number] Admin: 03/12/19 21:25 Dose: 300 mg Documented by: [id number] Admin: 03/11/19 20:03 Dose: 300 mg Documented by: [id number] Admin: 03/10/19 20:42 Dose: 300 mg Documented by: [id number] Admin: 03/09/19 21:02 Dose: 300 mg Documented by: [id number] Rifampin (Rifampin) 600 mg PO QA [facility] Stop: 04/20/19 17:37 Last Admin: 03/14/19 08:48 Dose: 600 mg Documented by: [id number] Admin: 03/13/19 08:46 Dose: 600 mg Documented by: [id number] Admin: 03/12/19 09:31 Dose: 600 mg Documented by: [id number] Cosigned by: [id number] Admin: 03/11/19 14:14 Dose: 600 mg Documented by: [id number] Admin: 03/10/19 09:53 Dose: 600 mg Documented by: [id number] Admin: 03/09/19 19:35 Dose: 600 mg Documented by: [id number] Sennosides (Senokot) 17.2 mg PO [facility] Stop: 04/10/19 20:59 Last Admin: 03/13/19 21:40 Dose: 17.2 mg Documented by: [id number] Admin: 03/12/19 21:24 Dose: 17.2 mg Documented by: [id number] Admin: 03/11/19 20:03 Dose: 17.2 mg Documented by: [id number] Tamsulosin HCl (Flomax) 0.4 mg PO DAILY [facility] Stop: 04/09/19 08:59 Last Admin: 03/14/19 08:48 Dose: 0.4 mg Documented by: [id number] Admin: 03/13/19 08:46 Dose: 0.4 mg Documented by: [id number] Admin: 03/12/19 09:15 Dose: 0.4 mg Documented by: [id number] Cosigned by: [id number] Admin: 03/11/19 14:10 Dose: 0.4 mg Documented by: [id number] Admin: 03/10/19 07:59 Dose: 0.4 mg Documented by: [id number] Tiotropium Pound (Spiriva) 1 puffs INH QAM [facility] Stop: 04/09/19 08:59 Last Admin: 03/14/19 08:45 Dose: 1 puffs Documented by: [id number] Admin: 03/13/19 08:43 Dose: 1 puffs Documented by: [id number] Admin: 03/12/19 09:22 Dose: 1 puffs Documented by: [id number] Cosigned by: [id number] Admin: 03/11/19 14:15 Dose: 1 puffs Documented by: [id number] Admin: 03/10/19 09:54 Dose: 1 puffs Documented by: [id number] Discontinued Medications Albuterol (Duoneb) 3 ml NEB NOW STA Stop: 03/09/19 14:52 Last Admin: 03/09/19 15:08 Dose: 3 ml Documented by: [id number] Albuterol (Duoneb) 3 ml NEB Q4R [facility] Stop: 04/09/19 19:59 Last Admin: 03/12/19 15:17 Dose: 3 ml Documented by: [id number] Admin: 03/12/19 11:21 Dose: Not Given Documented by: [id number] Admin: 03/12/19 07:08 Dose: Not Given Documented by: [id number] Admin: 03/12/19 04:45 Dose: 3 ml Documented by: [id number] Admin: 03/11/19 23:47 Dose: 3 ml Documented by: [id number] Admin: 03/11/19 19:08 Dose: 3 ml Documented by: [id number] Admin: 03/11/19 15:07 Dose: 3 ml Documented by: [id number] Admin: 03/11/19 11:32 Dose: 3 ml Documented by: [id number] Admin: 03/11/19 07:40 Dose: 3 ml Documented by: [id number] Admin: 03/11/19 07:37 Dose: Not Given Documented by: [id number] Admin: 03/11/19 03:51 Dose: 3 ml Documented by: [id number] Admin: 03/10/19 23:33 Dose: 3 ml Documented by: [id number] Admin: 03/10/19 19:43 Dose: 3 ml Documented by: [id number] Albuterol (Duoneb) 3 ml NEB NOW STA Stop: 03/11/19 07:20 Last Admin: 03/11/19 07:40 Dose: Not Given Documented by: [id number] Ciprofloxacin (Cipro) 500 mg PO Q12H [facility] Stop: 04/20/19 19:59 Last Admin: 03/11/19 14:10 Dose: 500 mg Documented by: [id number] Admin: 03/10/19 20:42 Dose: 500 mg Documented by: [id number] Admin: 03/10/19 09:52 Dose: 500 mg Documented by: [id number] Admin: 03/09/19 21:24 Dose: 500 mg Documented by: [id number] Clonidine HCl (Catapres) 0.1 mg PO NOW ONE Stop: 03/13/19 16:28 Last Admin: 03/13/19 16:52 Dose: 0.1 mg Documented by: [id number] Clonidine HCl (Catapres) 0.1 mg PO NOW ONE Stop: 03/14/19 03:39 Last Admin: 03/14/19 03:53 Dose: 0.1 mg Documented by: [id number] Epinephrine HCl (Epinephrine) Confirm Administered Dose 5 mg .ROUTE .STK-MED ONE Stop: 03/11/19 07:13 Last Admin: 03/11/19 08:34 Dose: 2 mg Documented by: [id number] Furosemide (Lasix) 20 mg PO MoWeFr@0900 [facility] Stop: 04/08/19 17:37 Last Admin: 03/09/19 19:34 Dose: 20 mg Documented by: [id number] Furosemide (Lasix) 40 mg IV ONE ONE Stop: 03/11/19 16:11 Last Admin: 03/11/19 17:33 Dose: 40 mg Documented by: [id number] Vancomycin HCl 2,750 mg/ (Sodium Chloride) 555 mls @ 200 mls/hr IV NOW ONE; Protocol Stop: 03/09/19 21:16 Last Infusion: 03/09/19 22:25 Dose: 0 mls/hr Documented by: [id number] Admin: 03/09/19 19:35 Dose: 200 mls/hr Documented by: [id number] Vancomycin HCl 1,750 mg/ (Sodium Chloride) 535 mls @ 200 mls/hr IV Q18H [facility] Stop: 03/13/19 14:00 Last Infusion: 03/13/19 13:24 Dose: 0 mls/hr Documented by: [id number] Admin: 03/13/19 10:11 Dose: 200 mls/hr Documented by: [id number] Infusion: 03/12/19 19:05 Dose: 0 mls/hr Documented by: [id number] Admin: 03/12/19 16:01 Dose: 200 mls/hr Documented by: [id number] Infusion: 03/12/19 00:15 Dose: 0 mls/hr Documented by: [id number] Admin: 03/11/19 21:26 Dose: 200 mls/hr Documented by: [id number] Infusion: 03/11/19 15:10 Dose: 0 mls/hr Documented by: [id number] Admin: 03/11/19 05:10 Dose: 200 mls/hr Documented by: [id number] Infusion: 03/10/19 13:38 Dose: 0 mls/hr Documented by: [id number] Admin: 03/10/19 10:44 Dose: 200 mls/hr Documented by: [id number] Dextrose/Sodium Chloride (D5w And Nss) 1,000 mls @ 80 mls/hr IV .[id number] [facility] Stop: 04/09/19 16:59 Last Infusion: 03/10/19 18:24 Dose: 0 mls/hr Documented by: [id number] Admin: 03/10/19 17:06 Dose: 80 mls/hr Documented by: [id number] Sodium Chloride (Nss 1000ml) 1,000 mls @ 100 mls/hr IV .Q10H [facility] Stop: 03/12/19 06:00 Last Admin: 03/11/19 14:30 Dose: Not Given Documented by: [id number] Lidocaine/Epinephrine (Xylocaine/Epinephrine 1%) Confirm Administered Dose 20 ml .ROUTE .STK-MED ONE Stop: 03/11/19 07:12 Last Admin: 03/11/19 08:47 Dose: 20 ml Documented by: [id number] Ondansetron HCl (Zofran) 4 mg IV ONCE PRN PRN Reason: PACU Use Only-Nausea/Vomiting Stop: 03/11/19 12:24 Last Admin: 03/11/19 09:34 Dose: 4 mg Documented by: [id number] Ondansetron HCl (Zofran) Confirm Administered Dose 4 mg .ROUTE .STK-MED ONE Stop: 03/11/19 09:33 Last Admin: 03/11/19 14:30 Dose: Not Given Documented by: [id number] Polyethylene Glycol (Miralax Powder Packet) 17 gm PO QID [facility] Stop: 04/11/19 12:59 Last Admin: 03/14/19 08:49 Dose: Not Given Documented by: [id number] Admin: 03/13/19 21:39 Dose: 17 gm Documented by: [id number] Admin: 03/13/19 16:52 Dose: Not Given Documented by: [id number] Admin: 03/13/19 13:24 Dose: Not Given Documented by: [id number] Admin: 03/13/19 09:18 Dose: Not Given Documented by: [id number] Admin: 03/12/19 21:34 Dose: 17 gm Documented by: [id number] Admin: 03/12/19 18:11 Dose: Not Given Documented by: [id number] Admin: 03/12/19 13:47 Dose: 17 gm Documented by: [id number] Cosigned by: [id number] Polyethylene Glycol (Miralax Powder Packet) 17 gm PO BID [facility] Stop: 04/11/19 12:29 Last Admin: 03/12/19 12:58 Dose: Not Given Documented by: [id number] (1) BPH (benign prostatic hyperplasia) Lower urinary tract symptom detail: unspecified (2) Gout Chronicity: unspecified Gout etiology: unspecified cause Gout site: unspecified site Qualified Code(s): M10.9 - Gout, unspecified (3) AD (Alzheimer's disease) Alzheimer's disease onset: unspecified onset (4) COPD (chronic obstructive pulmonary disease) COPD type: unspecified COPD Qualified Code(s): J44.9 - Chronic obstructive pulmonary disease, unspecified (5) Septic joint of left knee joint Septic arthritis organism: due to unspecified organism Qualified Code(s): M00.9 - Pyogenic arthritis, unspecified
--- NOTE | 2019-03-14 09:45 | Orthopedic Progress Note ---
Date of Service March 14, 2019 Assessment & Plan (1) Septic joint of left knee joint: Patient has an infected total knee arthroplasty.Continue intravenous antibiotics. He is on Lovenox for DVT prophylaxis. No one at [facility] was available to take care of him for this type problem. He cannot be transferred to [facility] because of insurance.He has been accepted to the medicine service at [facility]. Dr. Renteria will assume his orthopedic care. He is stable for discharge and transport.Likely needs explantation of joint and antibiotic spacer. Discussed with daughter that the arthroscopic surgery removed the bulk of the infection however bacteria stay adhered to the implant and cement/entered objects and cannot be eradicated with simply washing out or antibiotics. Present on Admission?: Yes Subjective Having some frequent bowel movements. Otherwise no significant complaint. Physical Exam Physical Exam: Dressing clean and dry. Dorsalis pedis 1+. Sensation intact left foot. He can flex and extend his ankle and toes with normal strength. Results & Data Vital Signs (Past 12 Hours) Vital Signs Temp Pulse Pulse Resp BP BP Pulse Ox 03/14/19 07:47 36.9 C 87 18 148/98 H 96 03/14/19 04:35 140/94 03/14/19 03:33 36.9 C 102 H 20 172/109 H 93 Laboratory Results Microbiology 03/09/19 16:00 Gram Stain - Final Knee,Left Aerobic and Anaerobic Culture - Preliminary Anaerobic gram positive cocci (1) Septic joint of left knee joint Septic arthritis organism: due to unspecified organism Qualified Code(s): M00.9 - Pyogenic arthritis, unspecified
[2019-03-14] MEDS: METOPROLOL SUCC 50MG EXT REL TAB PO SCH (09:54)
[2019-03-14] MEDS ORDERED: AMLODIPINE BESYLATE 5 MG TAB PO ONE (10:15)
[2019-03-14] MEDS ORDERED: predniSONE 20 MG TAB PO SCH (11:15)
[2019-03-14] MEDS ORDERED: levoFLOXacin 500 MG TAB PO STA (11:17)
[2019-03-14] MEDS ORDERED: ALBUT/IPRATROP 3MG/0.5MG NEB 3 ML VIAL NEB SCH ×2 (14:00→15:00)
[2019-03-15] MEDS ORDERED: AMLODIPINE BESYLATE 5 MG TAB PO SCH (09:00)
--- NOTE | 2019-03-15 10:44 | Discharge Summary ---
Date of Service March 15, 2019 Discharge Data Consultations 03/09/19 16:32 ED Decision to Admit Stat 03/09/19 17:38 Consult Hospitalist Stat 03/11/19 09:11 Consult Infectious Diseases Routine 03/11/19 09:55 Consult Case Management - Discharge Planning Routine Procedures Performed Operation Date: 03/10/19 07:30 <No data on this case meets the specified criteria> Operation Date: 03/11/19 07:00 Actual Procedures p Arthroscopy Knee, Incision and Drainage Knee(Left) - Denis Ugalde MD Hospital Course (1) Septic joint of left knee joint: Patient was admitted to the [facility] after presenting to the emergency room for with complaints of increased left knee pain. He was seen and evaluated by the ER staff and a consult was placed for Dr. Ugalde for orthopedic evaluation due to possible septic left knee. In the ED he had an aspiration of his left knee and the aspiration fluid was sent for analysis, Gram stain and azael-prosthetic cultures - aerobic and anaerobic. He was admitted for care. He was started on IV Ancef, rifampin p.o. and Cipro for antibiotic coverage. He was allowed out of bed, weight-bear as tolerated on his left lower extremity with the assistance of a walker and knee immobilizer on his left knee. After midnight and plans for possible incision and drainage of a septic left total knee arthroplasty on Tuesday morning. Hospitalist consult was placed for medical management and preop medical clearance. His Gram stain did show many polys and gram-positive cocci. He was given a diet on Tuesday and was made n.p.o. after midnight for Tuesday. On Tuesday he underwent a left knee arthroscopy irrigation and debridement with Dr. Ugalde under general anesthesia. He tolerated the procedure well without any intraoperative complications. He was allowed out of bed, weight-bear as tolerated left lower extremity, no range of motion while Hemovac drain in place. He was placed on Lovenox 30 mg twice daily for DVT prophylaxis as well as AV foot pumps and CARLOS stockings. Hemovac drain was removed on Tuesday as the output depreciated. The knee immobilizer was discontinued postoperatively. Physical therapy and Occupational Therapy consult were placed. Case management consults were also placed for discharge needs. Infectious disease consult was also placed for assistance with antibiotic management. The cultures were followed during his stay. He tolerated a regular diet during his stay. He was out of bed with physical therapy on postoperative day 1. Postoperative day 2 range of motion was started for his left knee due to the Hemovac being removed. On postoperative day 2 his dressings were also changed and his incisions at that time are clean, dry and intact with a small effusion to his left knee. No further surgery was performed. Recommendations were made for explantation of his left total knee arthroplasty due to chronic left knee infection. Initial plans were made for him to be transferred to [facility] for continued care of his septic left total knee arthroplasty with the orthopedic service there. We were unable to transfer him to [place] due to insurance denial. Communication was made with other orthopedist at [facility] for possible transfer of care to their service, but no one at [facility] was available to continue his care here. Decision was made for transfer to [facility] for continued care of his septic left total knee arthroplasty and further surgery per their recommendations. Daughter was updated and agreed with the plan. He was followed by the medicine service during his entire inpatient stay.His medical conditions remained stable during his inpatient stay. He did have a COPD exacerbation on postoperative day 3 and was started on prednisone 40 mg and Levaquin [address] Milian. Nebulizers were also scheduled and he did improve with the nebulizer treatment. This was communicated to the accepting physician in [facility]. His home medications were continued appropriately. At the time of discharge his cultures showed anaerobic gram positive cocci with no sensitivities to follow - preliminary result. On postoperative day 3, he was transferred to [facility] in stable condition to the hospitalist service. His care will resume there with orthopedics and infectious disease. He can follow-up with Dr. Ugalde on an as-needed basis or as necessary for postoperative care if warranted. All questions were answered and discharge instructions were provided. Discharge Instructions as per EMR
[2019-03-15] MEDS ORDERED: VANCOMYCIN TROUGH ONE (15:30)
== END 2019-03-14 15:00 | disposition short-term general hospital (02) | DRG 485 ==
LOC: ED 12:43 → 3W 16:40